=== PATIENT | male | born 1990 | race Caucasian/White ===

== ENCOUNTER 2023-07-02 16:31 | Inpatient (IN) | payer OTHER, SELFPAY ==
[2023-07-02 18:45] VITALS: BP 115/69; PULSE 64; TEMP 36.3
[2023-07-02 20:22] VITALS: BP 127/71; PULSE 67; TEMP 36.2; O2SAT 97
[2023-07-02] MEDS: Buprenorphine/Naloxone 8/2 mg FILM 1 FILM SUBLINGUAL (20:29)
[2023-07-02] MEDS: cloNIDine HCL 0.1 MG TABLET PO (20:30)
[2023-07-02] MEDS: hydrOXYzine HCL 50 MG TABLET PO (20:30)
--- NOTE | 2023-07-02 23:38 | PC.ADMIT ---
Lonny was admitted to at 1645 from [facility] on a CV for treatment of SI/Unspecified depressive disorder. Pt presented to [facility] secondary to being discharged from [facility] yesterday. Pt reported he was still having SI, thought about hanging himself, but decided to get treatment. Pt is looking for different treatment, including group therapy. Pt is goal oriented, stating he is looking to expand his coping skills and get, ?mentally stable.? Pt is alert and oriented X 4. Pt is calm and cooperative. Pt mood is anxious but goal oriented. Pt denies AH/VH at this time and does not appear to be responding to internal stimuli. Pt thought process is linear and goal oriented. Pt denies SI/HI at this time. Pt reports no issues sleeping or eating with no recent weight loss. Pt denies substance use, using Suboxone. Pt denies complaints. Provider is aware of admission, orders are placed. Begin treatment plan and monitor for safety. Pt is placed on 15 minute safety checks. Pt is safe on the unit.
[2023-07-03 08:24] LABS: Estimated Average Glucose 103 mg/dL; Hemoglobin A1c % 5.2 % (<6.0)
[2023-07-03] MEDS: Buprenorphine/Naloxone 8/2 mg FILM 1 FILM SUBLINGUAL ×2 (08:31→16:39)
[2023-07-03] MEDS: Venlafaxine HCL 25 MG TABLET 75 MG PO (08:31)
[2023-07-03 08:37] LABS: Alanine Aminotransferase 92 U/L (0-40); Albumin Level 3.9 g/dL (3.5-5.0); Alkaline Phosphatase 89 U/L (39-117); Anion Gap 12 (12-20); Aspartate Amino Transferase 48 U/L (5-37); Bilirubin Total 0.4 mg/dL (0.0-1.0); Blood Urea Nitrogen 14 mg/dL (9-16); Calcium 9.7 mg/dL (8.4-10.2); Carbon Dioxide 28 mmol/L (22-29); Chloride 104 mmol/L (96-108); Cholesterol 140 mg/dL (<200); Estimated Glomerular Filt Rate > 60; Glucose Fasting 88 mg/dL (60-99); HDL Cholesterol 31 mg/dL (>40); LDL Cholesterol Calculated 94 mg/dL (<100); Potassium 4.3 mmol/L (3.3-5.1); Sodium 140 mmol/L (135-145); Total Protein 7.1 g/dL (6.5-8.0); Triglycerides 79 mg/dL (<150)
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
[2023-07-03 08:53] LABS: Free T4 (Free Thyroxine) 0.81 ng/dL (0.71-1.85); Thyroid Stimulating Hormone 3.28 uIU/mL (0.32-4.0)
[2023-07-03] MEDS: Nicotine 21 MG PATCH.TD24 TRANSDERMA (08:59)
[2023-07-03 09:03] LABS: Folate 10.4 ng/mL (> or = 4.0); Vitamin B12 721 pg/mL (200-900)
[2023-07-03 09:13] VITALS: BP 101/52; PULSE 50; RESP 14; TEMP 36.9; O2SAT 96
--- NOTE | 2023-07-03 11:40 | HO.PM.IMCN ---
History of Present Illness Data of Consult Service Date: 07/03/23 Primary Care Provider: None Physician HPI Reason for consult: Admission H&P Pt is a 32-year-old male with a PMH significant for?ADHD and IVDU on suboxone who is admitted to [facility] psychiatry unit for continued depression with SI with plan to overdose. Pt recently presented to [facility] and was placed at [facility]. After discharge from there he re-presented to [facility] ED since he still felt suicidal. Medical consult for admission H&P. Pt denies any acute medical concerns. Reports feeling fine physically. Denies chest pain/pressure, palpitations. No SOB. Denies headache, acute vision changes. No lightheadedness or dizziness. Denies fever, chills, N/V, diarrhea. Reports he used to be a daily user of heroin but now only uses occasionally every few weeks. Last used over three weeks ago. Labs reviewed, significant for mildly elevated AST of 48 and a ALT 92. Review of Systems Review of Systems: Pt has no acute medical complaints at this time [facility] Medical History (Updated 07/04/23 @ 00:22 by AMELIA Mtz) Opioid use disorder PTSD (post-traumatic stress disorder) MDD (major depressive disorder), recurrent severe, without psychosis Social History Household Members Other:: Friends Housing: Apartment Do you presently have visiting nurse or other home services: No Patient Tobacco Use Status: Current everyday Tobacco user Smoked in Last 30 Days: Yes e-Cigarette/Vaping Use: Currently Using Patient Interested in Nicotine Replacement: Yes Patient Given Instructions on How to Stop Smoking: No Second Hand Smoke Exposure: No Use of substances other than those prescribed or required for medical reasons: Yes Substance Use Type: Crack/Cocaine and Heroin Substance Use Frequency: Occasionally Last Used Substance: Weeks (ago) Last Used Substance Other:: Before admission to [facility] Currently Displaying Signs/Symptoms of Drug Intoxication Withdrawal: No Any prior treatment program specific to substance use: Yes Have you been hit, kicked, punched, or otherwise hurt by someone within the past year? If so, by whom?: No Do you feel safe in your current relationship?: No Current Relationship Is there a partner from a previous relationship who is making you feel unsafe now?: No Are you made to feel afraid or neglected: No Advance Directives: No Advance Directives Information Provided: No Do you have thoughts of harming others: None Do you have a plan to hurt others: No Plan Recently lost weight without trying: No Nutrition Risks: No Nutritional Risk Poor oral hygiene: No Meds Allergies Allergy/AdvReac Type Severity Reaction Status Date / Time No Known Allergies Allergy Verified 07/02/23 16:55 Active Medications: Current Medications Acetaminophen (Acetaminophen 325 Mg Tablet) 650 mg PO Q6H PRN PRN Reason: Headache/Pain Mild Scale (1-3) Al Hydroxide/Mg Hydroxide (Magnesium Hydrox/Alum Hydrox 30 Ml Oral.Susp) 30 ml PO Q6H PRN PRN Reason: Heartburn/Nausea Buprenorphine/Naloxone (Buprenorphine/Naloxone 8/2 Mg Film) 1 film SUBLINGUAL BID [facility] Last Admin: 07/03/23 08:31 Dose: 1 film Clonidine HCl (Clonidine Hcl 0.1 Mg Tablet) 0.1 mg PO BID PRN; Protocol PRN Reason: anxiety Last Admin: 07/02/23 20:30 Dose: 0.1 mg Hydroxyzine HCl (Hydroxyzine Hcl 50 Mg Tablet) 50 mg PO TID PRN PRN Reason: Anxiety Last Admin: 07/02/23 20:30 Dose: 50 mg Magnesium Hydroxide (Milk Of Magnesia 30 Ml Oral.Susp) 30 ml PO DAILY PRN PRN Reason: Constipation Nicotine (Nicotine 21 Mg Patch.Td24) 21 mg TRANSDERMA DAILY [facility] Last Admin: 07/03/23 08:59 Dose: 21 mg Nicotine Polacrilex (Nicotine Polacrilex 2 Mg Gum) 4 mg BUCCAL Q2H PRN PRN Reason: Nicotine Cravings Trazodone HCl (Trazodone Hcl 50 Mg Tablet) 50 mg PO BEDTIME MRX1 PRN PRN Reason: Insomnia Venlafaxine HCl (Venlafaxine Hcl 25 Mg Tablet) 75 mg PO DAILY [facility] Last Admin: 07/03/23 08:31 Dose: 75 mg Home Medications Medication Instructions Recorded Confirmed Last Taken Type buprenorphine 8 mg-naloxone 2 mg 20 mg sublingual BID 07/02/23 07/02/23 07/02/23 09:00 History sublingual film (Suboxone) clonidine HCl 0.1 mg tablet 0.1 mg PO BID PRN anxiety 07/02/23 07/02/23 07/01/23 21:00 History hydroxyzine pamoate 50 mg capsule 50 mg PO TID PRN Anxiety 07/02/23 07/02/23 07/01/23 12:00 History nicotine (polacrilex) 4 mg buccal 4 mg buccal Q2-4H PRN nicotine 07/02/23 07/02/23 Unknown History lozenge craving trazodone 50 mg tablet 50 mg PO BEDTIME PRN insomnia 07/02/23 07/02/23 Unknown History venlafaxine 75 mg tablet,extended 75 mg PO DAILY 07/02/23 07/02/23 07/01/23 09:00 History release 24 hr Physical Exam Vital Signs and Narrative: Vital Signs: Last Vital Signs Temp 98.5 F 07/03/23 09:13 Pulse 50 07/03/23 09:13 Resp 14 07/03/23 09:13 BP 101/52 L 07/03/23 09:13 Pulse Ox 96 07/03/23 09:13 O2 Del Method Room Air 07/03/23 09:13 Constitutional: Alert, in no acute distress. Mental Status: Oriented to person, place and time. Eyes: Pupils are equal, round, and reactive to light. Ear, Nose, and Throat: Oropharynx clear, mucous membranes moist. Ears and nose without deformities. Trachea midline. Respiratory: Clear to auscultation bilaterally. No wheezing, rales, or rhonchi. Cardiovascular: S1, S2 regular. No murmurs, rubs, or gallops. Gastrointestinal: Abdomen soft, non-tender, non-distended. Normal bowel sounds. Neurologic: Cranial nerves II-XII are grossly intact bilaterally. No focal neurological deficits. Moves all extremities spontaneously. Skin: No rashes or lesions noted. Musculoskeletal: No cyanosis or clubbing. Extremities: No edema. Psychiatric: Normal mood and affect. Results Labs 07/03/23 08:02 Labs: Laboratory Results - last 24 hr 07/03/23 08:02 Anion Gap 12 Estim Creat Clear Calc TNP Estimated GFR > 60 Fasting Glucose 88 Estimat Average Glucose 103 Hemoglobin A1c % 5.2 Calcium 9.7 Magnesium 2.0 Total Bilirubin 0.4 AST 48 H ALT 92 H Alkaline Phosphatase 89 Total Protein 7.1 Albumin 3.9 Triglycerides 79 Cholesterol 140 LDL Cholesterol, Calc 94 HDL Cholesterol 31 L Vitamin B12 721 Folate 10.4 TSH 3.28 Free T4 0.81 Assessment and Plan (1) Medical clearance for psychiatric admission: Status: Acute Plan Pt is a 32-year-old male with a PMH significant for?ADHD and IVDU on suboxone who is admitted to [facility] psychiatry unit for continued depression with SI with plan to overdose. Pt recently presented to [facility] and was placed at [facility]. After discharge from there he re-presented to [facility] ED since he still felt suicidal. Medical consult for admission H&P. Mood disorder Plan as per psychiatry Hx of IVDU Last used 3+ weeks ago Continue Suboxone Plan as per psychiatry Hx of ADHD Does not appear to be on any current medications Pt has no other acute or chronic medical concerns or conditions. Thank you for allowing us to participate in the care of this patient. Signing off at this time. Please let us know if there are any acute complaints or questions. Time Spent With Patient Time: Total time managing care of this patient today ____ minutes.
[2023-07-03] MEDS: buPROPion HCl XL 300 MG TAB.ER.24H PO (13:56)
[2023-07-03] MEDS: cloNIDine HCL 0.1 MG TABLET PO ×2 (16:42→21:11)
[2023-07-03 21:01] VITALS: BP 124/65; PULSE 68; RESP 16; TEMP 36.1; O2SAT 95
[2023-07-03] MEDS: hydrOXYzine HCL 25 MG TABLET PO (21:09)
[2023-07-03] MEDS: hydrOXYzine HCL 50 MG TABLET PO (21:11)
[2023-07-04 08:00] VITALS: BP 105/59; PULSE 58; RESP 18; TEMP 36.2; O2SAT 96
[2023-07-04] MEDS: Nicotine 21 MG PATCH.TD24 TRANSDERMA (09:01)
[2023-07-04] MEDS: Buprenorphine/Naloxone 8/2 mg FILM 1 FILM SUBLINGUAL ×2 (09:01→16:00)
[2023-07-04] MEDS: buPROPion HCl XL 300 MG TAB.ER.24H PO (09:02)
--- NOTE | 2023-07-04 09:42 | P.PNPSI_ITS ---
Subjective Subjective Date of Service: 07/04/23 Reason For Visit: Unspecified depressive disorder Interim History: met with patient; discussed with team P bassam?reports?continues?to?be?depressed;?slept?okay.??Intermittent?SI?remains.? ?Discussed?history?and?patient S hares?how?he?was?told?repeatedly?that?something?is?wrong?with?him?which?he?event ually?came?to?believe?was?true. D iscussed?medication?regimen?and?patient?agrees?to?add?Prozac?to?existing?Wellbut rin?300?which?he?has?been?on?for?over?a?week?now. P bassam?reviewed?risksside?effects?of?medication?regimen?with?typewriter tester?and?decided? that?potential?benefit?outweighs?risks Mental Status Exam Mental Status Exam Narrative: Pt is alert and oriented; behavior is cooperative, calm; patient is not in distress; patient has slouch 2 over in his chair; dressed in casual attire with unkempt hair but adequate hygiene; mood is described as depressed and affect congruent, downcast; eye contact avoidant; Speech is normal rate, volume and prosody and not pressured; psychomotor retardation present; thought process is organized and goal directed; Thought content is on tx, trying to push off thoughts of killing himself; otherwise pertinent to relevant topics and without any delusional content, paranoid ideations or grandiosity; positive for SI; denies HI. There is no evidence of perceptual disturbance and denies AVH. Patients insight and judgment impaired Diagnostics Vital Signs (24Hr): Vital Signs - 24 hr 07/03/23 21:01 07/04/23 08:00 Temperature 97.0 F 97.2 F Pulse Rate 68 58 Respiratory Rate 16 18 Blood Pressure 124/65 105/59 L Pulse Oximetry 95 96 Oxygen Delivery Method Room Air Room Air Labs 07/03/23 08:02 Labs: Laboratory Results - last 48 hr 07/03/23 08:02 Sodium 140 Potassium 4.3 Chloride 104 Carbon Dioxide 28 Anion Gap 12 BUN 14 Creatinine 0.86 Estim Creat Clear Calc TNP Estimated GFR > 60 Fasting Glucose 88 Estimat Average Glucose 103 Hemoglobin A1c % 5.2 Calcium 9.7 Magnesium 2.0 Total Bilirubin 0.4 AST 48 H ALT 92 H Alkaline Phosphatase 89 Total Protein 7.1 Albumin 3.9 Triglycerides 79 Cholesterol 140 LDL Cholesterol, Calc 94 HDL Cholesterol 31 L Vitamin B12 721 Folate 10.4 TSH 3.28 Free T4 0.81 Medications Medications Current Medications Acetaminophen (Acetaminophen 325 Mg Tablet) 650 mg PO Q6H PRN PRN Reason: Headache/Pain Mild Scale (1-3) Al Hydroxide/Mg Hydroxide (Magnesium Hydrox/Alum Hydrox 30 Ml Oral.Susp) 30 ml PO Q6H PRN PRN Reason: Heartburn/Nausea Buprenorphine/Naloxone (Buprenorphine/Naloxone 8/2 Mg Film) 1 film SUBLINGUAL BID@0900,1600 [facility] Last Admin: 07/04/23 09:01 Dose: 1 film Bupropion HCl (Bupropion Hcl Xl 300 Mg Tab.Er.24h) 300 mg PO DAILY [facility] Last Admin: 07/04/23 09:02 Dose: 300 mg Clonidine HCl (Clonidine Hcl 0.1 Mg Tablet) 0.1 mg PO Q4H PRN; Protocol PRN Reason: anxiety Last Admin: 07/03/23 21:11 Dose: 0.1 mg Hydroxyzine HCl (Hydroxyzine Hcl 50 Mg Tablet) 50 mg PO TID PRN PRN Reason: Anxiety Last Admin: 07/03/23 21:11 Dose: 50 mg Magnesium Hydroxide (Milk Of Magnesia 30 Ml Oral.Susp) 30 ml PO DAILY PRN PRN Reason: Constipation Nicotine (Nicotine 21 Mg Patch.Td24) 21 mg TRANSDERMA DAILY [facility] Last Admin: 07/04/23 09:01 Dose: 21 mg Nicotine Polacrilex (Nicotine Polacrilex 2 Mg Gum) 4 mg BUCCAL Q2H PRN PRN Reason: Nicotine Cravings Trazodone HCl (Trazodone Hcl 50 Mg Tablet) 50 mg PO BEDTIME MRX1 PRN PRN Reason: Insomnia Allergies Allergies Allergy/AdvReac Type Severity Reaction Status Date / Time No Known Allergies Allergy Verified 07/02/23 16:55 Assessment & Plan Assessment & Plan (1) Medical clearance for psychiatric admission: Status: Acute Code(s): Z00.8 - Encounter for other general examination Plan Pt is a 32-year-old male with a PMH significant for?ADHD and IVDU on suboxone who is admitted to psychiatry unit for continued depression with SI with plan to overdose. Pt recently presented to [facility] and was placed at [facility]. After discharge from there he re-presented to [facility] ED since he still felt suicidal. Medical consult for admission H&P. Hospital?course Adding?Prozac?10?mg? C ontinue?Wellbutrin?XL?300?mg;?decided?to?add?Prozac?since?patient?has?had?no?vita efit?with?increased? Wellbutrin?after?a?week.??Will?continue?with?Wellbutrin?since?patient?had?partia l?benefit A t?150?mg;?if?patient?improves?on?Prozac?will?likely?lower?Wellbutrin?back?to?150 Mood disorder Plan as per psychiatry Hx of IVDU Last used 3+ weeks ago Continue Suboxone Plan as per psychiatry Hx of ADHD Does not appear to be on any current medications Pt has no other acute or chronic medical concerns or conditions. Thank you for allowing us to participate in the care of this patient. Signing off at this time. Please let us know if there are any acute complaints or questions. Patient educated on: diagnosis, medication risk/benefits, substance abuse and therapeutic strategies Informed Consent: understands Reason for continued inpatient stay Substantial Risk for: rapid decompensation Time Spent With Patient Time: Total time managing care of this patient today ____ minutes.
[2023-07-04] MEDS: FLUoxetine HCl 10 MG CAPSULE PO (14:05)
[2023-07-04] MEDS: hydrOXYzine HCL 50 MG TABLET PO (16:00)
[2023-07-04] MEDS: cloNIDine HCL 0.1 MG TABLET PO (16:03)
[2023-07-04 16:16] VITALS: BP 117/71; PULSE 60; RESP 16; TEMP 36.7; O2SAT 97
[2023-07-05 08:47] VITALS: BP 110/55; PULSE 60; RESP 16; TEMP 36.1; O2SAT 96
[2023-07-05] MEDS: Nicotine 21 MG PATCH.TD24 TRANSDERMA (08:55)
[2023-07-05] MEDS: FLUoxetine HCl 10 MG CAPSULE PO (08:56)
[2023-07-05] MEDS: buPROPion HCl XL 300 MG TAB.ER.24H PO (08:56)
[2023-07-05] MEDS: Buprenorphine/Naloxone 8/2 mg FILM 1 FILM SUBLINGUAL ×2 (08:57→16:12)
--- NOTE | 2023-07-05 09:50 | P.PNPSI_ITS ---
Subjective Subjective Date of Service: 07/05/23 Reason For Visit: Unspecified depressive disorder Interim History: With patient; discussed with team; reviewed notes Patient reports that his mood is actually a little better. He says that he feels he has more energy and finds himself moving around in the milieu more; also a little more confident. Still has intermittent SI but less intense. Sleeping fine. Patient is going to groups. No side effects with Prozac started Mental Status Exam Mental Status Exam Narrative: Pt is alert and oriented; behavior is cooperative, calm; patient is not in distress; patient dressed in casual attire with unkempt hair but adequate hygiene; mood is described as so-so... A little better and affect congruent, a little brighter; eye contact appropriate; Speech is normal rate, volume and prosody and not pressured; still some psychomotor retardation present; thought process is organized and goal directed; Thought content is on tx; otherwise pertinent to relevant topics and without any delusional content, paranoid ideations or grandiosity; intermittent SI but less intense and passive; denies HI. There is no evidence of perceptual disturbance and denies AVH. Patients insight and judgment impaired but improving Diagnostics Vital Signs (24Hr): Vital Signs - 24 hr 07/04/23 16:16 07/05/23 08:47 Temperature 98.1 F 97.0 F Pulse Rate 60 60 Respiratory Rate 16 16 Blood Pressure 117/71 110/55 L Pulse Oximetry 97 96 Oxygen Delivery Method Room Air Room Air Labs 07/03/23 08:02 Medications Medications Current Medications Acetaminophen (Acetaminophen 325 Mg Tablet) 650 mg PO Q6H PRN PRN Reason: Headache/Pain Mild Scale (1-3) Al Hydroxide/Mg Hydroxide (Magnesium Hydrox/Alum Hydrox 30 Ml Oral.Susp) 30 ml PO Q6H PRN PRN Reason: Heartburn/Nausea Buprenorphine/Naloxone (Buprenorphine/Naloxone 8/2 Mg Film) 1 film SUBLINGUAL BID@0900,1600 [facility] Last Admin: 07/05/23 08:57 Dose: 1 film Bupropion HCl (Bupropion Hcl Xl 300 Mg Tab.Er.24h) 300 mg PO DAILY [facility] Last Admin: 07/05/23 08:56 Dose: 300 mg Clonidine HCl (Clonidine Hcl 0.1 Mg Tablet) 0.1 mg PO Q4H PRN; Protocol PRN Reason: anxiety Last Admin: 07/04/23 16:03 Dose: 0.1 mg Fluoxetine HCl (Fluoxetine Hcl 10 Mg Capsule) 10 mg PO DAILY [facility] Last Admin: 07/05/23 08:56 Dose: 10 mg Hydroxyzine HCl (Hydroxyzine Hcl 50 Mg Tablet) 50 mg PO TID PRN PRN Reason: Anxiety Last Admin: 07/04/23 16:00 Dose: 50 mg Magnesium Hydroxide (Milk Of Magnesia 30 Ml Oral.Susp) 30 ml PO DAILY PRN PRN Reason: Constipation Nicotine (Nicotine 21 Mg Patch.Td24) 21 mg TRANSDERMA DAILY [facility] Last Admin: 07/05/23 08:55 Dose: 21 mg Nicotine Polacrilex (Nicotine Polacrilex 2 Mg Gum) 4 mg BUCCAL Q2H PRN PRN Reason: Nicotine Cravings Trazodone HCl (Trazodone Hcl 50 Mg Tablet) 50 mg PO BEDTIME MRX1 PRN PRN Reason: Insomnia Allergies Allergies Allergy/AdvReac Type Severity Reaction Status Date / Time No Known Allergies Allergy Verified 07/02/23 16:55 Assessment & Plan Assessment & Plan (1) Medical clearance for psychiatric admission: Status: Acute Code(s): Z00.8 - Encounter for other general examination Plan Patient is a 32-year-old male with history of depression, PTSD, opioid abuse, recently discharged from [facility], who self presents for continued depression and suicidal ideation. Patient reports that he is struggle with depression and PTSD symptoms from childhood trauma for years. About 6 months ago he was admitted to [facility] psychiatric unit and was started on low dose of Wellbutrin; was feeling better for while however intermittent relapse and ongoing negative self dialogue triggered by traumatic memories was enough to return depressive symptoms. About 3 weeks ago he self presented and was admitted again to [facility] at which time he was started on Suboxone. He remained depressed and started having increased suicidal thinking, contemplating about hanging himself or overdosing on drugs; patient did not want to and had hoped to get better and so presented to [facility] and his Wellbutrin was increased to 300 mg. However he feels he left prematurely and remained suicidal so again self presented to the hospital wanting treatment. Denies any history of manic type episodes or behaviors; denies any AVH; denies any alcohol abuse. Says he has reduced his opioid relapses to about once every 3 weeks which is an improvement but he agrees he needs to be sober to remains stable. Endorses childhood trauma with PTSD symptoms of flashbacks, nightmares. -patient wants help; would like to continue on Wellbutrin XL 300 mg; since he recently started this is not sure if he is ready to try and augment it however is open to considering Augmentin medications Hospital course: 07/04 Adding?Prozac?10?mg? C ontinue?Wellbutrin?XL?300?mg;?decided?to?add?Prozac?since?patient?has?had?no?vita efit?with?increased? Wellbutrin?after?a?week.??Will?continue?with?Wellbutrin?since?patient?had?partia l?benefit A t?150?mg;?if?patient?improves?on?Prozac?will?likely?lower?Wellbutrin?back?to?150 07/05 patient feels that he is doing a little better and although depression remains a little more hopeful; he wonders if it is because he started Prozac. Patient going to groups and invested in treatment Plan: CV Q 15 minute checks Continue Prozac 10 mg Continue Wellbutrin XL 300 mg daily Continue Suboxone 8/2 mg b.i.d. Consider prazosin/clonidine scheduled at bedtime for nightmares Considering augmentation with BuSpar, Prozac or Lamictal DC Effexor; patient says does not like the feeling of it Patient agrees that he needs therapy and would like to find therapeutic provider Reviewed labs from sending facility QTC WNL CBC, lytes, BUN/creatinine WNL Mildly elevated LFTs UDS positive for cocaine; patient denies using cocaine Patient educated on: diagnosis, medication risk/benefits and therapeutic strategies Informed Consent: understands Reason for continued inpatient stay Substantial Risk for: rapid decompensation Time Spent With Patient Time: Total time managing care of this patient today ____ minutes.
[2023-07-05 18:00] VITALS: BP 117/85; PULSE 54; TEMP 36.1; O2SAT 97
[2023-07-05] MEDS: cloNIDine HCL 0.1 MG TABLET PO (20:46)
[2023-07-06 08:20] VITALS: BP 125/73; PULSE 67; RESP 18; TEMP 36.1; O2SAT 97
[2023-07-06] MEDS: Nicotine 21 MG PATCH.TD24 TRANSDERMA (09:02)
[2023-07-06] MEDS: Buprenorphine/Naloxone 8/2 mg FILM 1 FILM SUBLINGUAL ×2 (09:03→16:00)
[2023-07-06] MEDS: FLUoxetine HCl 10 MG CAPSULE PO ×2 (09:03→12:54)
[2023-07-06] MEDS: buPROPion HCl XL 300 MG TAB.ER.24H PO (09:03)
--- NOTE | 2023-07-06 09:56 | P.PNPSI_ITS ---
Subjective Subjective Date of Service: 07/06/23 Reason For Visit: Unspecified depressive disorder Interim History: Met with patient; discussed with team S till?depressed.??SI?but?passive.??Asks?for?Prozac?to?be?increased.??Patient?atte nded?groups?and?feels?it?has Been?quite?helpful.??Says?he?is?realizing?that it?is?not?the?end?of?the?world ?when?he?makes?a?mistake. P atient?also?realizing?how?much?thinking?a?certain?way?affects?his?mood.??Wants?h elp?changing. Mental Status Exam Mental Status Exam Narrative: Pt is alert and oriented; behavior is cooperative, calm; patient is not in distress; patient dressed in casual attire with unkempt hair but adequate hygiene; mood is described as so-so... A little better and affect congruent, a little brighter; eye contact appropriate; Speech is normal rate, volume and prosody and not pressured; still some psychomotor retardation present; thought process is organized and goal directed; Thought content is on tx; otherwise pertinent to relevant topics and without any delusional content, paranoid ideations or grandiosity; intermittent SI but less intense and passive; denies HI. There is no evidence of perceptual disturbance and denies AVH. Patients insight and judgment impaired but improving Diagnostics Vital Signs (24Hr): Vital Signs - 24 hr 07/05/23 18:00 07/06/23 08:20 Temperature 96.9 F 97.0 F Pulse Rate 54 67 Respiratory Rate 18 Blood Pressure 117/85 125/73 Pulse Oximetry 97 97 Oxygen Delivery Method Room Air Room Air Labs 07/03/23 08:02 Medications Medications Current Medications Acetaminophen (Acetaminophen 325 Mg Tablet) 650 mg PO Q6H PRN PRN Reason: Headache/Pain Mild Scale (1-3) Al Hydroxide/Mg Hydroxide (Magnesium Hydrox/Alum Hydrox 30 Ml Oral.Susp) 30 ml PO Q6H PRN PRN Reason: Heartburn/Nausea Buprenorphine/Naloxone (Buprenorphine/Naloxone 8/2 Mg Film) 1 film SUBLINGUAL BID@0900,1600 [facility] Last Admin: 07/06/23 09:03 Dose: 1 film Bupropion HCl (Bupropion Hcl Xl 300 Mg Tab.Er.24h) 300 mg PO DAILY [facility] Last Admin: 07/06/23 09:03 Dose: 300 mg Clonidine HCl (Clonidine Hcl 0.1 Mg Tablet) 0.1 mg PO Q4H PRN; Protocol PRN Reason: anxiety Last Admin: 07/05/23 20:46 Dose: 0.1 mg Fluoxetine HCl (Fluoxetine Hcl 10 Mg Capsule) 10 mg PO DAILY [facility] Last Admin: 07/06/23 09:03 Dose: 10 mg Hydroxyzine HCl (Hydroxyzine Hcl 50 Mg Tablet) 50 mg PO TID PRN PRN Reason: Anxiety Last Admin: 07/04/23 16:00 Dose: 50 mg Magnesium Hydroxide (Milk Of Magnesia 30 Ml Oral.Susp) 30 ml PO DAILY PRN PRN Reason: Constipation Nicotine (Nicotine 21 Mg Patch.Td24) 21 mg TRANSDERMA DAILY [facility] Last Admin: 07/06/23 09:02 Dose: 21 mg Nicotine Polacrilex (Nicotine Polacrilex 2 Mg Gum) 4 mg BUCCAL Q2H PRN PRN Reason: Nicotine Cravings Trazodone HCl (Trazodone Hcl 50 Mg Tablet) 50 mg PO BEDTIME MRX1 PRN PRN Reason: Insomnia Allergies Allergies Allergy/AdvReac Type Severity Reaction Status Date / Time No Known Allergies Allergy Verified 07/02/23 16:55 Assessment & Plan Assessment & Plan (1) Medical clearance for psychiatric admission: Status: Acute Code(s): Z00.8 - Encounter for other general examination Plan Patient is a 32-year-old male with history of depression, PTSD, opioid abuse, recently discharged from [facility], who self presents for continued depression and suicidal ideation. Patient reports that he is struggle with depression and PTSD symptoms from childhood trauma for years. About 6 months ago he was admitted to [facility] psychiatric unit and was started on low dose of Wellbutrin; was feeling better for while however intermittent relapse and ongoing negative self dialogue triggered by traumatic memories was enough to return depressive symptoms. About 3 weeks ago he self presented and was admitted again to [facility] hospital at which time he was started on Suboxone. He remained depressed and started having increased suicidal thinking, contemplating about hanging himself or overdosing on drugs; patient did not want to and had hoped to get better and so presented to [facility] and his Wellbutrin was increased to 300 mg. However he feels he left prematurely and remained suicidal so again self presented to the hospital wanting treatment. Denies any history of manic type episodes or behaviors; denies any AVH; denies any alcohol abuse. Says he has reduced his opioid relapses to about once every 3 weeks which is an improvement but he agrees he needs to be sober to remains stable. Endorses childhood trauma with PTSD symptoms of flashbacks, nightmares. -patient wants help; would like to continue on Wellbutrin XL 300 mg; since he recently started this is not sure if he is ready to try and augment it however is open to considering Augmentin medications Hospital course: 07/04 Adding?Prozac?10?mg? C ontinue?Wellbutrin?XL?300?mg;?decided?to?add?Prozac?since?patient?has?had?no?vita efit?with?increased? Wellbutrin?after?a?week.??Will?continue?with?Wellbutrin?since?patient?had?partia l?benefit A t?150?mg;?if?patient?improves?on?Prozac?will?likely?lower?Wellbutrin?back?to?150 07/05 patient feels that he is doing a little better and although depression remains a little more hopeful; he wonders if it is because he started Prozac. Patient going to groups and invested in treatment 07/06?patient?feels?depressed?and?asked?for?Prozac?to?be?increased Plan: CV Q 15 minute checks Increased?to Prozac 20 mg Continue Wellbutrin XL 300 mg daily Continue Suboxone 8/2 mg b.i.d. Consider prazosin/clonidine scheduled at bedtime for nightmares Considering augmentation with BuSpar, Prozac or Lamictal DC Effexor; patient says does not like the feeling of it Patient agrees that he needs therapy and would like to find therapeutic provider Reviewed labs from sending facility QTC WNL CBC, lytes, BUN/creatinine WNL Mildly elevated LFTs UDS positive for cocaine; patient denies using cocaine Patient educated on: diagnosis, medication risk/benefits and therapeutic strategies Informed Consent: understands Reason for continued inpatient stay Substantial Risk for: rapid decompensation Time Spent With Patient Time: Total time managing care of this patient today ____ minutes.
[2023-07-06 18:00] VITALS: BP 140/81; PULSE 67; RESP 16; TEMP 36.2; O2SAT 98
[2023-07-07] MEDS: FLUoxetine HCl 20 MG CAPSULE PO (08:38)
[2023-07-07] MEDS: Nicotine 21 MG PATCH.TD24 TRANSDERMA (08:38)
[2023-07-07] MEDS: Buprenorphine/Naloxone 8/2 mg FILM 1 FILM SUBLINGUAL ×2 (08:38→17:02)
[2023-07-07] MEDS: buPROPion HCl XL 300 MG TAB.ER.24H PO (08:38)
[2023-07-07 09:16] VITALS: BP 107/62; PULSE 62; RESP 17; TEMP 36.6; O2SAT 96
--- NOTE | 2023-07-07 09:51 | HO.PSYCHPN ---
Subjective Subjective Date of Service: 07/07/23 Reason For Visit: Unspecified depressive disorder Interim History: met with patient; discussed with team Patient reports that he is feeling better. Says that today when he woke up he did have any suicidal thoughts at all, the 1st time and a very long time. Patient said that it is a relaxing feeling. No medication side effects. Patient asked to go to [facility] post discharge Mental Status Exam Mental Status Exam Narrative: Pt is alert and oriented; behavior is cooperative, calm; patient is not in distress; patient dressed in casual attire with unkempt hair but adequate hygiene; mood is described as good and affect congruent, a little brighter, more calm; eye contact appropriate; Speech is normal rate, volume and prosody and not pressured; still some psychomotor retardation present; thought process is organized and goal directed; Thought content is on tx; otherwise pertinent to relevant topics and without any delusional content, paranoid ideations or grandiosity; No SI/HI; There is no evidence of perceptual disturbance and denies AVH. Patients insight and judgment fair Diagnostics Vital Signs (24Hr): Vital Signs - 24 hr 07/06/23 18:00 07/07/23 09:16 Temperature 97.1 F 97.8 F Pulse Rate 67 62 Respiratory Rate 16 17 Blood Pressure 140/81 H 107/62 Pulse Oximetry 98 96 Oxygen Delivery Method Room Air Room Air Labs 07/03/23 08:02 Medications Medications Current Medications Acetaminophen (Acetaminophen 325 Mg Tablet) 650 mg PO Q6H PRN PRN Reason: Headache/Pain Mild Scale (1-3) Al Hydroxide/Mg Hydroxide (Magnesium Hydrox/Alum Hydrox 30 Ml Oral.Susp) 30 ml PO Q6H PRN PRN Reason: Heartburn/Nausea Buprenorphine/Naloxone (Buprenorphine/Naloxone 8/2 Mg Film) 1 film SUBLINGUAL BID@0900,1600 [facility] Last Admin: 07/07/23 08:38 Dose: 1 film Bupropion HCl (Bupropion Hcl Xl 300 Mg Tab.Er.24h) 300 mg PO DAILY [facility] Last Admin: 07/07/23 08:38 Dose: 300 mg Clonidine HCl (Clonidine Hcl 0.1 Mg Tablet) 0.1 mg PO Q4H PRN; Protocol PRN Reason: anxiety Last Admin: 07/05/23 20:46 Dose: 0.1 mg Fluoxetine HCl (Fluoxetine Hcl 20 Mg Capsule) 20 mg PO DAILY [facility] Last Admin: 07/07/23 08:38 Dose: 20 mg Hydroxyzine HCl (Hydroxyzine Hcl 50 Mg Tablet) 50 mg PO TID PRN PRN Reason: Anxiety Last Admin: 07/04/23 16:00 Dose: 50 mg Magnesium Hydroxide (Milk Of Magnesia 30 Ml Oral.Susp) 30 ml PO DAILY PRN PRN Reason: Constipation Nicotine (Nicotine 21 Mg Patch.Td24) 21 mg TRANSDERMA DAILY [facility] Last Admin: 07/07/23 08:38 Dose: 21 mg Nicotine Polacrilex (Nicotine Polacrilex 2 Mg Gum) 4 mg BUCCAL Q2H PRN PRN Reason: Nicotine Cravings Trazodone HCl (Trazodone Hcl 50 Mg Tablet) 50 mg PO BEDTIME MRX1 PRN PRN Reason: Insomnia Allergies Allergies Allergy/AdvReac Type Severity Reaction Status Date / Time No Known Allergies Allergy Verified 07/02/23 16:55 Assessment & Plan Assessment & Plan (1) Medical clearance for psychiatric admission: Status: Acute Code(s): Z00.8 - Encounter for other general examination Plan Patient is a 32-year-old male with history of depression, PTSD, opioid abuse, recently discharged from [facility], who self presents for continued depression and suicidal ideation. Patient reports that he is struggle with depression and PTSD symptoms from childhood trauma for years. About 6 months ago he was admitted to [facility] psychiatric unit and was started on low dose of Wellbutrin; was feeling better for while however intermittent relapse and ongoing negative self dialogue triggered by traumatic memories was enough to return depressive symptoms. About 3 weeks ago he self presented and was admitted again to [facility] at which time he was started on Suboxone. He remained depressed and started having increased suicidal thinking, contemplating about hanging himself or overdosing on drugs; patient did not want to and had hoped to get better and so presented to [facility] and his Wellbutrin was increased to 300 mg. However he feels he left prematurely and remained suicidal so again self presented to the hospital wanting treatment. Denies any history of manic type episodes or behaviors; denies any AVH; denies any alcohol abuse. Says he has reduced his opioid relapses to about once every 3 weeks which is an improvement but he agrees he needs to be sober to remains stable. Endorses childhood trauma with PTSD symptoms of flashbacks, nightmares. -patient wants help; would like to continue on Wellbutrin XL 300 mg; since he recently started this is not sure if he is ready to try and augment it however is open to considering Augmentin medications Hospital course: 07/04 Adding?Prozac?10?mg? Continue?Wellbutrin?XL?300?mg;?decided?to?add?Prozac?since?patient?has?had?no?benefit?with?increased?Wellbutrin?after?a?week.??Will?continue?with?Wellbutrin?since?patient?had?partial?benefit At?150?mg;?if?patient?improves?on?Prozac?will?likely?lower?Wellbutrin?back?to?150 07/05 patient feels that he is doing a little better and although depression remains a little more hopeful; he wonders if it is because he started Prozac. Patient going to groups and invested in treatment 07/06?patient?feels?depressed?and?asked?for?Prozac?to?be?increased no SI today. First-time Plan: CV Q 15 minute checks Continue Prozac 20 mg Continue Wellbutrin XL 300 mg daily Continue Suboxone 8/2 mg b.i.d. Consider prazosin/clonidine scheduled at bedtime for nightmares Considering augmentation with BuSpar, Prozac or Lamictal DC Effexor; patient says does not like the feeling of it Patient agrees that he needs therapy and would like to find therapeutic provider Reviewed labs from sending facility QTC WNL CBC, lytes, BUN/creatinine WNL Mildly elevated LFTs UDS positive for cocaine; patient denies using cocaine Patient educated on: diagnosis, medication risk/benefits and therapeutic strategies Informed Consent: understands Reason for continued inpatient stay Substantial Risk for: rapid decompensation Time Spent With Patient Time: Total time managing care of this patient today ____ minutes.
[2023-07-07 20:00] VITALS: BP 140/85; PULSE 66; TEMP 36.6; O2SAT 99
[2023-07-07] MEDS: cloNIDine HCL 0.1 MG TABLET PO (22:07)
[2023-07-08 08:05] VITALS: BP 103/55; PULSE 54; RESP 18; TEMP 35.9; O2SAT 97
[2023-07-08] MEDS: Nicotine 21 MG PATCH.TD24 TRANSDERMA (09:04)
[2023-07-08] MEDS: FLUoxetine HCl 20 MG CAPSULE PO (09:05)
[2023-07-08] MEDS: buPROPion HCl XL 300 MG TAB.ER.24H PO (09:05)
[2023-07-08] MEDS: Buprenorphine/Naloxone 8/2 mg FILM 1 FILM SUBLINGUAL ×2 (09:05→16:43)
--- NOTE | 2023-07-08 11:39 | P.PNPSI_ITS ---
Subjective Subjective Date of Service: 07/08/23 Reason For Visit: Unspecified depressive disorder Interim History: Met with patient; discussed with team Patient report feeling a little depressed today And had some suicidal ideation. However he remembered what ammonia refrigeration worker shared about using Positive talk and so went to his room and use this coping skill which he said was helpful. Seasonal Recruiter and patient engaged in CBT exercise looking at automatic thoughts and how they affect feelings and behaviors; also the origin of core beliefs. Exercise resonate with patient who would like to work on this idea tonight on his own and discuss it more. Also discussed patient's history of ADHD. He was diagnosed in grade school and was on stimulant medication all through school which he said was a significant help. He was also put on Adderall in his adult life which he said helped eliminate his cravings and during which time he was sober. Patient asked if he could restart this now. Seasonal Recruiter reviewed risks/side effects of this medication including its combination with Wellbutrin and it is concern for abuse; advertising copywriter however agreed with patient that potential benefit outweighs risks Mental Status Exam Mental Status Exam Narrative: Pt is alert and oriented; behavior is cooperative, calm; patient is not in distress; patient dressed in casual attire with unkempt hair but adequate hygiene; mood is described as little depressed and affect congruent; eye contact appropriate; Speech is normal rate, volume and prosody and not pressured; still some psychomotor retardation present; thought process is organized and goal directed; Thought content is on tx; otherwise pertinent to relevant topics and without any delusional content, paranoid ideations or grandiosity; intermittent passive SI; no HI; There is no evidence of perceptual disturbance and denies AVH. Patients insight and judgment fair Diagnostics Vital Signs (24Hr): Vital Signs - 24 hr 07/07/23 20:00 07/08/23 08:05 Temperature 97.8 F 96.7 F L Pulse Rate 66 54 Respiratory Rate 18 Blood Pressure 140/85 H 103/55 L Pulse Oximetry 99 97 Oxygen Delivery Method Room Air Room Air Labs 07/03/23 08:02 Medications Medications Current Medications Acetaminophen (Acetaminophen 325 Mg Tablet) 650 mg PO Q6H PRN PRN Reason: Headache/Pain Mild Scale (1-3) Al Hydroxide/Mg Hydroxide (Magnesium Hydrox/Alum Hydrox 30 Ml Oral.Susp) 30 ml PO Q6H PRN PRN Reason: Heartburn/Nausea Buprenorphine/Naloxone (Buprenorphine/Naloxone 8/2 Mg Film) 1 film SUBLINGUAL BID@0900,1600 [facility] Last Admin: 07/08/23 09:05 Dose: 1 film Bupropion HCl (Bupropion Hcl Xl 300 Mg Tab.Er.24h) 300 mg PO DAILY [facility] Last Admin: 07/08/23 09:05 Dose: 300 mg Clonidine HCl (Clonidine Hcl 0.1 Mg Tablet) 0.1 mg PO Q4H PRN; Protocol PRN Reason: anxiety Last Admin: 07/07/23 22:07 Dose: 0.1 mg Fluoxetine HCl (Fluoxetine Hcl 20 Mg Capsule) 20 mg PO DAILY [facility] Last Admin: 07/08/23 09:05 Dose: 20 mg Hydroxyzine HCl (Hydroxyzine Hcl 50 Mg Tablet) 50 mg PO TID PRN PRN Reason: Anxiety Last Admin: 07/04/23 16:00 Dose: 50 mg Magnesium Hydroxide (Milk Of Magnesia 30 Ml Oral.Susp) 30 ml PO DAILY PRN PRN Reason: Constipation Nicotine (Nicotine 21 Mg Patch.Td24) 21 mg TRANSDERMA DAILY [facility] Last Admin: 07/08/23 09:04 Dose: 21 mg Nicotine Polacrilex (Nicotine Polacrilex 2 Mg Gum) 4 mg BUCCAL Q2H PRN PRN Reason: Nicotine Cravings Trazodone HCl (Trazodone Hcl 50 Mg Tablet) 50 mg PO BEDTIME MRX1 PRN PRN Reason: Insomnia Allergies Allergies Allergy/AdvReac Type Severity Reaction Status Date / Time No Known Allergies Allergy Verified 07/02/23 16:55 Assessment & Plan Assessment & Plan (1) Medical clearance for psychiatric admission: Status: Acute Code(s): Z00.8 - Encounter for other general examination Plan Patient is a 32-year-old male with history of depression, PTSD, opioid abuse, recently discharged from [facility], who self presents for continued depression and suicidal ideation. Patient reports that he is struggle with depression and PTSD symptoms from childhood trauma for years. About 6 months ago he was admitted to [facility] psychiatric unit and was started on low dose of Wellbutrin; was feeling better for while however intermittent relapse and ongoing negative self dialogue triggered by traumatic memories was enough to return depressive symptoms. About 3 weeks ago he self presented and was admitted again to [facility] at which time he was started on Suboxone. He remained depressed and started having increased suicidal thinking, contemplating about hanging himself or overdosing on drugs; patient did not want to and had hoped to get better and so presented to [facility] and his Wellbutrin was increased to 300 mg. However he feels he left prematurely and remained suicidal so again self presented to the hospital wanting treatment. Denies any history of manic type episodes or behaviors; denies any AVH; denies any alcohol abuse. Says he has reduced his opioid relapses to about once every 3 weeks which is an improvement but he agrees he needs to be sober to remains stable. Endorses childhood trauma with PTSD symptoms of flashbacks, nightmares. -patient wants help; would like to continue on Wellbutrin XL 300 mg; since he recently started this is not sure if he is ready to try and augment it however is open to considering Augmentin medications Hospital course: 07/04 Adding?Prozac?10?mg? C ontinue?Wellbutrin?XL?300?mg;?decided?to?add?Prozac?since?patient?has?had?no?vita efit?with?increased? Wellbutrin?after?a?week.??Will?continue?with?Wellbutrin?since?patient?had?partia l?benefit A t?150?mg;?if?patient?improves?on?Prozac?will?likely?lower?Wellbutrin?back?to?150 07/05 patient feels that he is doing a little better and although depression remains a little more hopeful; he wonders if it is because he started Prozac. Patient going to groups and invested in treatment 07/06?patient?feels?depressed?and?asked?for?Prozac?to?be?increased no SI today. First-time 07/08 Patient report feeling a little depressed today And had some suicidal ideation. However he remembered what ammonia refrigeration worker shared about using Positive talk and so went to his room and use this coping skill which he said was helpful. Seasonal Recruiter and patient engaged in CBT exercise looking at automatic thoughts and how they affect feelings and behaviors; also the origin of core beliefs. Exercise resonate with patient who would like to work on this idea tonight on his own and discuss it more. Also discussed patient's history of ADHD. He was diagnosed in grade school and was on stimulant medication all through school which he said was a significant help. He was also put on Adderall in his adult life which he said helped eliminate his cravings and during which time he was sober. Patient asked if he could restart this now. Seasonal Recruiter reviewed risks/side effects of this medication including its combination with Wellbutrin and it is concern for abuse; advertising copywriter however agreed with patient that potential benefit outweighs risks Plan: CV Q 15 minute checks adding Adderall XR 20 mg daily Continue Prozac 20 mg Continue Wellbutrin XL 300 mg daily Continue Suboxone 8/2 mg b.i.d. Consider prazosin/clonidine scheduled at bedtime for nightmares Considering augmentation with BuSpar, Prozac or Lamictal DC Effexor; patient says does not like the feeling of it Patient agrees that he needs therapy and would like to find therapeutic provider Reviewed labs from sending facility QTC WNL CBC, lytes, BUN/creatinine WNL Mildly elevated LFTs UDS positive for cocaine; patient denies using cocaine Patient educated on: diagnosis, medication risk/benefits, substance abuse and therapeutic strategies Informed Consent: understands Reason for continued inpatient stay Substantial Risk for: rapid decompensation Time Spent With Patient Time: Total time managing care of this patient today ____ minutes.
[2023-07-08 18:00] VITALS: BP 137/80; PULSE 66; RESP 17; TEMP 36.3; O2SAT 98
[2023-07-09 08:00] VITALS: BP 120/69; PULSE 70; RESP 16; TEMP 37.1; O2SAT 96
[2023-07-09] MEDS: Nicotine 21 MG PATCH.TD24 TRANSDERMA (08:25)
[2023-07-09] MEDS: buPROPion HCl XL 300 MG TAB.ER.24H PO (08:26)
[2023-07-09] MEDS: Buprenorphine/Naloxone 8/2 mg FILM 1 FILM SUBLINGUAL ×2 (08:26→16:07)
[2023-07-09] MEDS: Dextroamphetamine/Amphetamine XR 10 MG CAP.ER.24H 20 MG PO (08:26)
[2023-07-09] MEDS: FLUoxetine HCl 20 MG CAPSULE PO (08:26)
--- NOTE | 2023-07-09 09:41 | HO.PSYCHPN ---
Subjective Subjective Date of Service: 07/09/23 Reason For Visit: Unspecified depressive disorder Interim History: met with patient; discussed with team Patient reports doing well today, mood better. Denies any SI at all. Feels that medications have been very helpful and is able to use coping skills. Discussed aftercare and patient says he thinks he is headed towards being ready for discharge. Would like outpatient therapist and to attend [facility]. Sleeping well; eating well. Mental Status Exam Mental Status Exam Narrative: Pt is alert and oriented; behavior is cooperative, calm; patient is not in distress; patient dressed in casual attire with unkempt hair but adequate hygiene; mood is described as better and affect congruent; eye contact appropriate; Speech is normal rate, volume and prosody and not pressured; some mild psychomotor retardation present; thought process is organized and goal directed; Thought content is on tx; otherwise pertinent to relevant topics and without any delusional content, paranoid ideations or grandiosity; no SI; no HI; There is no evidence of perceptual disturbance and denies AVH. Patients insight and judgment fair Diagnostics Vital Signs (24Hr): Vital Signs - 24 hr 07/08/23 18:00 07/09/23 08:00 Temperature 97.4 F 98.7 F Pulse Rate 66 70 Respiratory Rate 17 16 Blood Pressure 137/80 120/69 Pulse Oximetry 98 96 Oxygen Delivery Method Room Air Room Air Labs 07/03/23 08:02 Medications Medications Current Medications Acetaminophen (Acetaminophen 325 Mg Tablet) 650 mg PO Q6H PRN PRN Reason: Headache/Pain Mild Scale (1-3) Al Hydroxide/Mg Hydroxide (Magnesium Hydrox/Alum Hydrox 30 Ml Oral.Susp) 30 ml PO Q6H PRN PRN Reason: Heartburn/Nausea Amphetamine/Dextroamphetamine (Dextroamphetamine/Amphetamine Xr 10 Mg Cap.Er.24h) 20 mg PO DAILY [facility] Last Admin: 07/09/23 08:26 Dose: 20 mg Buprenorphine/Naloxone (Buprenorphine/Naloxone 8/2 Mg Film) 1 film SUBLINGUAL BID@0900,1600 [facility] Last Admin: 07/09/23 08:26 Dose: 1 film Bupropion HCl (Bupropion Hcl Xl 300 Mg Tab.Er.24h) 300 mg PO DAILY [facility] Last Admin: 07/09/23 08:26 Dose: 300 mg Clonidine HCl (Clonidine Hcl 0.1 Mg Tablet) 0.1 mg PO Q4H PRN; Protocol PRN Reason: anxiety Last Admin: 07/07/23 22:07 Dose: 0.1 mg Fluoxetine HCl (Fluoxetine Hcl 20 Mg Capsule) 20 mg PO DAILY [facility] Last Admin: 07/09/23 08:26 Dose: 20 mg Hydroxyzine HCl (Hydroxyzine Hcl 50 Mg Tablet) 50 mg PO TID PRN PRN Reason: Anxiety Last Admin: 07/04/23 16:00 Dose: 50 mg Magnesium Hydroxide (Milk Of Magnesia 30 Ml Oral.Susp) 30 ml PO DAILY PRN PRN Reason: Constipation Nicotine (Nicotine 21 Mg Patch.Td24) 21 mg TRANSDERMA DAILY [facility] Last Admin: 07/09/23 08:25 Dose: 21 mg Nicotine Polacrilex (Nicotine Polacrilex 2 Mg Gum) 4 mg BUCCAL Q2H PRN PRN Reason: Nicotine Cravings Trazodone HCl (Trazodone Hcl 50 Mg Tablet) 50 mg PO BEDTIME MRX1 PRN PRN Reason: Insomnia Allergies Allergies Allergy/AdvReac Type Severity Reaction Status Date / Time No Known Allergies Allergy Verified 07/02/23 16:55 Assessment & Plan Assessment & Plan (1) Medical clearance for psychiatric admission: Status: Acute Code(s): Z00.8 - Encounter for other general examination Plan Patient is a 32-year-old male with history of depression, PTSD, opioid abuse, recently discharged from [facility], who self presents for continued depression and suicidal ideation. Patient reports that he is struggle with depression and PTSD symptoms from childhood trauma for years. About 6 months ago he was admitted to [facility] psychiatric unit and was started on low dose of Wellbutrin; was feeling better for while however intermittent relapse and ongoing negative self dialogue triggered by traumatic memories was enough to return depressive symptoms. About 3 weeks ago he self presented and was admitted again to [facility] at which time he was started on Suboxone. He remained depressed and started having increased suicidal thinking, contemplating about hanging himself or overdosing on drugs; patient did not want to and had hoped to get better and so presented to [facility] and his Wellbutrin was increased to 300 mg. However he feels he left prematurely and remained suicidal so again self presented to the hospital wanting treatment. Denies any history of manic type episodes or behaviors; denies any AVH; denies any alcohol abuse. Says he has reduced his opioid relapses to about once every 3 weeks which is an improvement but he agrees he needs to be sober to remains stable. Endorses childhood trauma with PTSD symptoms of flashbacks, nightmares. -patient wants help; would like to continue on Wellbutrin XL 300 mg; since he recently started this is not sure if he is ready to try and augment it however is open to considering Augmentin medications Hospital course: 07/04 Adding?Prozac?10?mg? Continue?Wellbutrin?XL?300?mg;?decided?to?add?Prozac?since?patient?has?had?no?benefit?with?increased?Wellbutrin?after?a?week.??Will?continue?with?Wellbutrin?since?patient?had?partial?benefit At?150?mg;?if?patient?improves?on?Prozac?will?likely?lower?Wellbutrin?back?to?150 07/05 patient feels that he is doing a little better and although depression remains a little more hopeful; he wonders if it is because he started Prozac. Patient going to groups and invested in treatment 07/06?patient?feels?depressed?and?asked?for?Prozac?to?be?increased no SI today. First-time 07/08 Patient report feeling a little depressed today And had some suicidal ideation. However he remembered what rider ticket worker shared about using Positive talk and so went to his room and use this coping skill which he said was helpful. Tooling Engineering Tech and patient engaged in CBT exercise looking at automatic thoughts and how they affect feelings and behaviors; also the origin of core beliefs. Exercise resonate with patient who would like to work on this idea tonight on his own and discuss it more. Also discussed patient's history of ADHD. He was diagnosed in grade school and was on stimulant medication all through school which he said was a significant help. He was also put on Adderall in his adult life which he said helped eliminate his cravings and during which time he was sober. Patient asked if he could restart this now. Tooling Engineering Tech reviewed risks/side effects of this medication including its combination with Wellbutrin and it is concern for abuse; promotion writer however agreed with patient that potential benefit outweighs risks 07/09 patient reports doing better; no SI today at all. Feels like he is getting ready for discharge and discussing aftercare plans Plan: CV Q 15 minute checks adding Adderall XR 20 mg daily Continue Prozac 20 mg Continue Wellbutrin XL 300 mg daily Continue Suboxone 8/2 mg b.i.d. Consider prazosin/clonidine scheduled at bedtime for nightmares Considering augmentation with BuSpar, Prozac or Lamictal DC Effexor; patient says does not like the feeling of it Patient agrees that he needs therapy and would like to find therapeutic provider Reviewed labs from sending facility QTC WNL CBC, lytes, BUN/creatinine WNL Mildly elevated LFTs UDS positive for cocaine; patient denies using cocaine Patient educated on: diagnosis and medication risk/benefits Informed Consent: understands Reason for continued inpatient stay Substantial Risk for: stable for discharge Time Spent With Patient Time: Total time managing care of this patient today ____ minutes.
[2023-07-09 21:12] VITALS: BP 118/81; PULSE 78; TEMP 36.3
[2023-07-09] MEDS: cloNIDine HCL 0.1 MG TABLET PO (22:32)
[2023-07-10] MEDS: Nicotine 21 MG PATCH.TD24 TRANSDERMA (08:32)
[2023-07-10] MEDS: buPROPion HCl XL 300 MG TAB.ER.24H PO (08:33)
[2023-07-10] MEDS: FLUoxetine HCl 20 MG CAPSULE PO (08:33)
[2023-07-10] MEDS: Buprenorphine/Naloxone 8/2 mg FILM 1 FILM SUBLINGUAL ×2 (08:33→16:27)
[2023-07-10] MEDS: Dextroamphetamine/Amphetamine XR 10 MG CAP.ER.24H 20 MG PO (08:33)
[2023-07-10 09:35] VITALS: BP 108/61; PULSE 74; RESP 16; TEMP 36.3; O2SAT 98
--- NOTE | 2023-07-10 09:40 | P.PNPSI_ITS ---
Subjective Subjective Date of Service: 07/10/23 Reason For Visit: Unspecified depressive disorder Interim History: met with patient; discussed in team pt says doing well, no SI at all today; feeling better, hopeful. Feels ready for discharge planning. Did another CBT exercise with patient, challenging neg automatic thought which resonated with patient who reports using this technique on his own as coping skill; discussed hx of trauma, ramifications. Mental Status Exam Mental Status Exam Narrative: Pt is alert and oriented; behavior is cooperative, calm; patient is not in distress; patient dressed in casual attire with unkempt hair but adequate hygiene; mood is described as better and affect congruent; eye contact appropriate; Speech is normal rate, volume and prosody and not pressured; some mild psychomotor retardation present; thought process is organized and goal directed; Thought content is on tx; otherwise pertinent to relevant topics and without any delusional content, paranoid ideations or grandiosity; no SI; no HI; There is no evidence of perceptual disturbance and denies AVH. Patients insight and judgment fair Diagnostics Vital Signs (24Hr): Vital Signs - 24 hr 07/09/23 21:12 07/10/23 09:35 Temperature 97.3 F 97.4 F Pulse Rate 78 74 Respiratory Rate 16 Blood Pressure 118/81 108/61 Pulse Oximetry 98 Oxygen Delivery Method Room Air Labs 07/03/23 08:02 Medications Medications Current Medications Acetaminophen (Acetaminophen 325 Mg Tablet) 650 mg PO Q6H PRN PRN Reason: Headache/Pain Mild Scale (1-3) Al Hydroxide/Mg Hydroxide (Magnesium Hydrox/Alum Hydrox 30 Ml Oral.Susp) 30 ml PO Q6H PRN PRN Reason: Heartburn/Nausea Amphetamine/Dextroamphetamine (Dextroamphetamine/Amphetamine Xr 10 Mg Cap.Er.24h) 20 mg PO DAILY [facility] Last Admin: 07/10/23 08:33 Dose: 20 mg Buprenorphine/Naloxone (Buprenorphine/Naloxone 8/2 Mg Film) 1 film SUBLINGUAL BID@0900,1600 [facility] Last Admin: 07/10/23 08:33 Dose: 1 film Bupropion HCl (Bupropion Hcl Xl 300 Mg Tab.Er.24h) 300 mg PO DAILY [facility] Last Admin: 07/10/23 08:33 Dose: 300 mg Clonidine HCl (Clonidine Hcl 0.1 Mg Tablet) 0.1 mg PO Q4H PRN; Protocol PRN Reason: anxiety Last Admin: 07/09/23 22:32 Dose: 0.1 mg Fluoxetine HCl (Fluoxetine Hcl 20 Mg Capsule) 20 mg PO DAILY [facility] Last Admin: 07/10/23 08:33 Dose: 20 mg Hydroxyzine HCl (Hydroxyzine Hcl 50 Mg Tablet) 50 mg PO TID PRN PRN Reason: Anxiety Last Admin: 07/04/23 16:00 Dose: 50 mg Magnesium Hydroxide (Milk Of Magnesia 30 Ml Oral.Susp) 30 ml PO DAILY PRN PRN Reason: Constipation Nicotine (Nicotine 21 Mg Patch.Td24) 21 mg TRANSDERMA DAILY [facility] Last Admin: 07/10/23 08:32 Dose: 21 mg Nicotine Polacrilex (Nicotine Polacrilex 2 Mg Gum) 4 mg BUCCAL Q2H PRN PRN Reason: Nicotine Cravings Trazodone HCl (Trazodone Hcl 50 Mg Tablet) 50 mg PO BEDTIME MRX1 PRN PRN Reason: Insomnia Allergies Allergies Allergy/AdvReac Type Severity Reaction Status Date / Time No Known Allergies Allergy Verified 07/02/23 16:55 Assessment & Plan Assessment & Plan (1) Medical clearance for psychiatric admission: Status: Acute Code(s): Z00.8 - Encounter for other general examination Plan Patient is a 32-year-old male with history of depression, PTSD, opioid abuse, recently discharged from [facility], who self presents for continued depression and suicidal ideation. Patient reports that he is struggle with depression and PTSD symptoms from childhood trauma for years. About 6 months ago he was admitted to [facility] psychiatric unit and was started on low dose of Wellbutrin; was feeling better for while however intermittent relapse and ongoing negative self dialogue triggered by traumatic memories was enough to return depressive symptoms. About 3 weeks ago he self presented and was admitted again to [facility] at which time he was started on Suboxone. He remained depressed and started having increased suicidal thinking, contemplating about hanging himself or overdosing on drugs; patient did not want to and had hoped to get better and so presented to [facility] and his Wellbutrin was increased to 300 mg. However he feels he left prematurely and remained suicidal so again self presented to the hospital wanting treatment. Denies any history of manic type episodes or behaviors; denies any AVH; denies any alcohol abuse. Says he has reduced his opioid relapses to about once every 3 weeks which is an improvement but he agrees he needs to be sober to remains stable. Endorses childhood trauma with PTSD symptoms of flashbacks, nightmares. -patient wants help; would like to continue on Wellbutrin XL 300 mg; since he recently started this is not sure if he is ready to try and augment it however is open to considering Augmentin medications Hospital course: 07/04 Adding?Prozac?10?mg? C ontinue?Wellbutrin?XL?300?mg;?decided?to?add?Prozac?since?patient?has?had?no?vita efit?with?increased? Wellbutrin?after?a?week.??Will?continue?with?Wellbutrin?since?patient?had?partia l?benefit A t?150?mg;?if?patient?improves?on?Prozac?will?likely?lower?Wellbutrin?back?to?150 07/05 patient feels that he is doing a little better and although depression remains a little more hopeful; he wonders if it is because he started Prozac. Patient going to groups and invested in treatment 07/06?patient?feels?depressed?and?asked?for?Prozac?to?be?increased no SI today. First-time 07/08 Patient report feeling a little depressed today And had some suicidal ideation. However he remembered what wheel worker shared about using Positive talk and so went to his room and use this coping skill which he said was helpful. Shaker Plate Operator and patient engaged in CBT exercise looking at automatic thoughts and how they affect feelings and behaviors; also the origin of core beliefs. Exercise resonate with patient who would like to work on this idea tonight on his own and discuss it more. Also discussed patient's history of ADHD. He was diagnosed in grade school and was on stimulant medication all through school which he said was a significant help. He was also put on Adderall in his adult life which he said helped eliminate his cravings and during which time he was sober. Patient asked if he could restart this now. Shaker Plate Operator reviewed risks/side effects of this medication including its combination with Wellbutrin and it is concern for abuse; card writer hand however agreed with patient that potential benefit outweighs risks 07/09 patient reports doing better; no SI today at all. Feels like he is getting ready for discharge and discussing aftercare plans 07/10 stabilizing well; no SI, using coping skills. Hopefull and feeling ready to return to community. Pt is future oriented with aftercare being set up. Will proceed with dc planning Plan: CV Q 15 minute checks adding Adderall XR 30 mg daily Continue Prozac 20 mg Continue Wellbutrin XL 300 mg daily Continue Suboxone 8/2 mg b.i.d. Consider prazosin/clonidine scheduled at bedtime for nightmares Considering augmentation with BuSpar, Prozac or Lamictal DC Effexor; patient says does not like the feeling of it Patient agrees that he needs therapy and would like to find therapeutic provider Reviewed labs from sending facility QTC WNL CBC, lytes, BUN/creatinine WNL Mildly elevated LFTs UDS positive for cocaine; patient denies using cocaine Patient educated on: diagnosis, medication risk/benefits, substance abuse and therapeutic strategies Informed Consent: understands Reason for continued inpatient stay Substantial Risk for: stable for discharge Time Spent With Patient Time: Total time managing care of this patient today ____ minutes.
[2023-07-10 19:49] VITALS: BP 142/87; PULSE 73; TEMP 36.5
[2023-07-11 08:22] VITALS: BP 103/59; PULSE 82; RESP 16; TEMP 36.2; O2SAT 96
[2023-07-11] MEDS: FLUoxetine HCl 20 MG CAPSULE PO (08:29)
[2023-07-11] MEDS: buPROPion HCl XL 300 MG TAB.ER.24H PO (08:29)
[2023-07-11] MEDS: Nicotine 21 MG PATCH.TD24 TRANSDERMA (08:29)
[2023-07-11] MEDS: Buprenorphine/Naloxone 8/2 mg FILM 1 FILM SUBLINGUAL ×2 (08:29→16:00)
[2023-07-11] MEDS: Dextroamphetamine/Amphetamine XR 10 MG CAP.ER.24H 30 MG PO (08:29)
--- NOTE | 2023-07-11 09:48 | P.PNPSI_ITS ---
Subjective Subjective Date of Service: 07/11/23 Reason For Visit: Unspecified depressive disorder Subjective Notes: Conditional Voluntary Interim History: Pt reports he feels much better, less depressed. No SI/HI. He reports he feels more parts of the day are good. No VH/AH. Sleeping well. Some dreams at night but reports not nightmares. He is visible on the unit and attends groups. Diagnostics Vital Signs (24Hr): Vital Signs - 24 hr 07/10/23 19:49 07/11/23 08:22 Temperature 97.7 F 97.1 F Pulse Rate 73 82 Respiratory Rate 16 Blood Pressure 142/87 H 103/59 L Pulse Oximetry 96 Oxygen Delivery Method Room Air Labs 07/03/23 08:02 Medications Medications Current Medications Acetaminophen (Acetaminophen 325 Mg Tablet) 650 mg PO Q6H PRN PRN Reason: Headache/Pain Mild Scale (1-3) Al Hydroxide/Mg Hydroxide (Magnesium Hydrox/Alum Hydrox 30 Ml Oral.Susp) 30 ml PO Q6H PRN PRN Reason: Heartburn/Nausea Amphetamine/Dextroamphetamine (Dextroamphetamine/Amphetamine Xr 10 Mg Cap.Er.24h) 30 mg PO DAILY [facility] Last Admin: 07/11/23 08:29 Dose: 30 mg Buprenorphine/Naloxone (Buprenorphine/Naloxone 8/2 Mg Film) 1 film SUBLINGUAL BID@0900,1600 [facility] Last Admin: 07/11/23 08:29 Dose: 1 film Bupropion HCl (Bupropion Hcl Xl 300 Mg Tab.Er.24h) 300 mg PO DAILY [facility] Last Admin: 07/11/23 08:29 Dose: 300 mg Clonidine HCl (Clonidine Hcl 0.1 Mg Tablet) 0.1 mg PO Q4H PRN; Protocol PRN Reason: anxiety Last Admin: 07/09/23 22:32 Dose: 0.1 mg Fluoxetine HCl (Fluoxetine Hcl 20 Mg Capsule) 20 mg PO DAILY [facility] Last Admin: 07/11/23 08:29 Dose: 20 mg Hydroxyzine HCl (Hydroxyzine Hcl 50 Mg Tablet) 50 mg PO TID PRN PRN Reason: Anxiety Last Admin: 07/04/23 16:00 Dose: 50 mg Magnesium Hydroxide (Milk Of Magnesia 30 Ml Oral.Susp) 30 ml PO DAILY PRN PRN Reason: Constipation Nicotine (Nicotine 21 Mg Patch.Td24) 21 mg TRANSDERMA DAILY [facility] Last Admin: 07/11/23 08:29 Dose: 21 mg Nicotine Polacrilex (Nicotine Polacrilex 2 Mg Gum) 4 mg BUCCAL Q2H PRN PRN Reason: Nicotine Cravings Trazodone HCl (Trazodone Hcl 50 Mg Tablet) 50 mg PO BEDTIME MRX1 PRN PRN Reason: Insomnia Allergies Allergies Allergy/AdvReac Type Severity Reaction Status Date / Time No Known Allergies Allergy Verified 07/02/23 16:55 Assessment & Plan Assessment & Plan (1) MDD (major depressive disorder), recurrent severe, without psychosis: Status: Acute Code(s): F33.2 - Major depressive disorder, recurrent severe without psychotic features (2) PTSD (post-traumatic stress disorder): Status: Acute Code(s): F43.10 - Post-traumatic stress disorder, unspecified (3) Opioid use disorder: Status: Acute Code(s): F11.90 - Opioid use, unspecified, uncomplicated Plan Patient is a 32-year-old male with history of depression, PTSD, opioid abuse, recently discharged from [facility], who self presents for continued depression and suicidal ideation. Patient reports that he is struggle with depression and PTSD symptoms from childhood trauma for years. About 6 months ago he was admitted to [facility] psychiatric unit and was started on low dose of Wellbutrin; was feeling better for while however intermittent relapse and ongoing negative self dialogue triggered by traumatic memories was enough to return depressive symptoms. About 3 weeks ago he self presented and was admitted again to [facility] at which time he was started on Suboxone. He remained depressed and started having increased suicidal thinking, contemplating about hanging himself or overdosing on drugs; patient did not want to and had hoped to get better and so presented to [facility] and his Wellbutrin was increased to 300 mg. However he feels he left prematurely and remained suicidal so again self presented to the hospital wanting treatment. Denies any history of manic type episodes or behaviors; denies any AVH; denies any alcohol abuse. Says he has reduced his opioid relapses to about once every 3 weeks which is an improvement but he agrees he needs to be sober to remains stable. Endorses childhood trauma with PTSD symptoms of flashbacks, nightmares. -patient wants help; would like to continue on Wellbutrin XL 300 mg; since he recently started this is not sure if he is ready to try and augment it however is open to considering Augmentin medications Hospital course: 07/04 Adding?Prozac?10?mg? C ontinue?Wellbutrin?XL?300?mg;?decided?to?add?Prozac?since?patient?has?had?no?vita efit?with?increased? Wellbutrin?after?a?week.??Will?continue?with?Wellbutrin?since?patient?had?partia l?benefit A t?150?mg;?if?patient?improves?on?Prozac?will?likely?lower?Wellbutrin?back?to?150 07/05 patient feels that he is doing a little better and although depression remains a little more hopeful; he wonders if it is because he started Prozac. Patient going to groups and invested in treatment 07/06?patient?feels?depressed?and?asked?for?Prozac?to?be?increased no SI today. First-time 07/08 Patient report feeling a little depressed today And had some suicidal ideation. However he remembered what farmworker field crop shared about using Positive talk and so went to his room and use this coping skill which he said was helpful. Paperboard Boxes Estimator and patient engaged in CBT exercise looking at automatic thoughts and how they affect feelings and behaviors; also the origin of core beliefs. Exercise resonate with patient who would like to work on this idea tonight on his own and discuss it more. Also discussed patient's history of ADHD. He was diagnosed in grade school and was on stimulant medication all through school which he said was a significant help. He was also put on Adderall in his adult life which he said helped eliminate his cravings and during which time he was sober. Patient asked if he could restart this now. Paperboard Boxes Estimator reviewed risks/side effects of this medication including its combination with Wellbutrin and it is concern for abuse; sql report writer however agreed with patient that potential benefit outweighs risks 07/09 patient reports doing better; no SI today at all. Feels like he is getting ready for discharge and discussing aftercare plans Plan: CV Q 15 minute checks adding Adderall XR 20 mg daily Continue Prozac 20 mg Continue Wellbutrin XL 300 mg daily Continue Suboxone 8/2 mg b.i.d. Consider prazosin/clonidine scheduled at bedtime for nightmares Considering augmentation with BuSpar, Prozac or Lamictal DC Effexor; patient says does not like the feeling of it Patient agrees that he needs therapy and would like to find therapeutic provider Reviewed labs from sending facility QTC WNL CBC, lytes, BUN/creatinine WNL Mildly elevated LFTs UDS positive for cocaine; patient denies using cocaine 07/11 pt reports feeling much better. No SI/HI. No VH/AH. Reason for continued inpatient stay Substantial Risk for: stable for discharge Time Spent With Patient Time: Total time managing care of this patient today ____ minutes.
[2023-07-11 18:00] VITALS: BP 124/72; PULSE 72; RESP 17; TEMP 36.6; O2SAT 96
[2023-07-12 07:50] VITALS: BP 120/63; PULSE 77; RESP 18; TEMP 36.4; O2SAT 97
--- NOTE | 2023-07-12 08:36 | PM.PSYDC ---
DS: Providers Provider Date of Service: 07/12/23 Date of admission: 07/02/23 16:31 Date of discharge: 07/12/23 Primary care physician: None Physician Attending physician on admission: Yonatan Fonseca Consults: 07/02/23 16:55 Consult to Hospitalist Routine Comment: Consulting Provider: Hospitalist Reason For Exam: Hospital Transfer Attending physician on discharge: Yonatan Fonseca DS: Diagnosis Discharge Diagnosis (1) MDD (major depressive disorder), recurrent severe, without psychosis: Status: Acute (2) PTSD (post-traumatic stress disorder): Status: Acute (3) Opioid use disorder: Status: Acute DS: Medications Discharge Medications Home Medications: Home Medications Medication Instructions Recorded Confirmed buprenorphine 8 mg-naloxone 2 mg 20 mg sublingual BID 07/02/23 07/02/23 sublingual film (Suboxone) Previous Rx's Medication Instructions Recorded bupropion HCl 300 mg 24 hr tablet, 300 mg PO DAILY 30 days #30 tabs 07/12/23 extended release clonidine HCl 0.1 mg tablet 0.1 mg PO TID PRN anxiety 30 days 07/12/23 #60 tabs dextroamphetamine-amphetamine ER 30 mg PO DAILY 30 days #30 caps 07/12/23 30 mg 24hr capsule,extend release fluoxetine 20 mg capsule 20 mg PO DAILY 30 days #30 caps 07/12/23 hydroxyzine pamoate 50 mg capsule 50 mg PO TID PRN Anxiety 30 days 07/12/23 #60 caps nicotine (polacrilex) 4 mg buccal 4 mg buccal Q2-4H PRN nicotine 07/12/23 lozenge craving 30 days #108 ea nicotine 21 mg/24 hr daily 21 mg transdermal DAILY PRN 07/12/23 transdermal patch smoking cessation 28 days #28 ea Mental Status Exam Mental Status Exam Narrative: pleasant. Engaged. Casually dressed and presented. Organized. Euthymic. No SI. No HI. Agitation. No psychosis. Insight and judgment good DS: Summary Hospital Course Hospital Course: HPI: per crisis lyndon pt JEREMIE called by himself with c/o SI with plan to hang himself. no clear precipitant, has been going on for several weeks. endorsed sleeping well but decreased appetite and energy. 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 was recently on M5 from 07/02-07/12, did not F/U at scheduled [facility] appointment on 07/18. he reported having been compliant with all medication Rxed from save adderall. on interview with MD, the above Hx recounted. it was noted that patient discharged from 2 months ago with a one-month supply of medication. he has no prescriber and has not gotten any refills. this would mean pt has been compliant with his medications no more than 50% of the time in the past 2 months. he reported he suddenly stopped taking his adderall about 2 weeks ago and was off of it until the past several days in the hospital. he is able to correlate the worst of his depressive Sx and SI to the past 2 weeks, since stopping the adderall. mood-elevating effects of stimulants reviewed, as well as stimulant withdrawal syndrome Sx. pt expressed his plan as to return to his previous psych med regimen, as has been done, and with the request to change adderall to vyvanse. pt believes he has become tolerant to the adderall, feeling it no longer helps him focus as it used to, and would like to try something different. discussed that vyvanse is non-formulary at [facility] and that his lack of medication compliance for the past 2 months coupled with his recent sudden cessation of adderall make it difficult to understand quite what is due to what right now. pt agreed with plan to restabilize him on his usual medications and to F/U with an outpatient prescriber for any stimulant changes once he has been restablished on his prior regimen. Past Psychiatric History: History of psychiatric admission; 3 prior admissions SA: hanging, 2021 outpt - did not F/U with referral at discharge from 07/12. currently no prescriber. h/o PTSD Dx Medication trials: Adderall, Strattera, Effexor ( at a low dose but made him feel weird ) Hospital course: 09/10: restart prior outpt regimen, restabilize. refer for outpt providers. 09/11: reflecting on trauma Hx and connection to drug use and current psych Sx. educated re EBP for PTSD. continue current mgmt. pt reflects that his mood has been worse these past 6 months of sobriety, which he attributes to all these memories flooding back in. discuss his trauma Hx, proper therapies. per staff, c/o mild anxiety and depression. feeling better since arrival. visible, social. -mood improving, no SI 09/12: started prazosin 1 mg at HS, titrate up for insomnia/agitated disturbed sleep. continue current mgmt otherwise. reporting crazy dreams, disrupted sleep, awakening in an agitated state. agreeable to start prazosin at HS. per staff, visible, social. dep 3. little anxiety. meals and meds. planning for friday. -mood good 09/13/2023: Increase prazosin to 2 mg met with patient. Overall has been doing well. Reports mood has significantly improved. Not suicidal. Still has intermittent nightmares. Reports wanting follow-up care in therapy. Doing well on sublocade. Prazosin started but nightmare still evident and will increase dose. Feeling supported in the hospital and also from a community setting and has the availability of staying either [place] or [place]. 09/14/2023: Increase prazosin to 4 mg Remains overall has been doing well. main issue are nightmares. Tolerated prazosin 2 mg last night. Is not on a nicotine patch. Otherwise, mood has significantly improved. Not suicidal. interacting well with peers. Enjoying football. Reports wanting follow-up care in therapy. Feeling supported in the hospital Patient stabilized; reported good mood which he felt had significantly improved; SI remained fully resolved. Not in imminent risk for harm to self or others and appropriate to return to the community for treatment. Time spent discussing smoking cessation with patient: 3 to 10 minutes Status at Discharge Functional status at discharge: independent ambulation Overall status at discharge: patient is back to baseline Time Spent with Patient Time attestation: Total time managing care of this patient today ____ minutes. Time spent: Less than 30 minutes Discharge Plan Discharge Anticipated Discharge Date/Time: 07/12/23 11:00 Patient Disposition: Home, Self-Care Discharge Diagnosis: MDD, recurrent, severe without psychosis, in full remission Referrals: [facility]Other] - 07/21/23 12:00 pm (Friday through Friday 9:30 to 1:00pm for four weeks.) [facility] [Other] - 07/14/23 10:30 am Clinical and Support Options Intake [facility] [Other] - 07/18/23 11:00 am (Call them w your new number.) [facility] [Other] - 1 Week (If you have any questions or concerns, please utilize their walk in service or give them a call. ) Discharge Medications: New nicotine 21 mg/24 hr Patch 24 Hour 21 mg transdermal DAILY PRN (Reason: smoking cessation) 28 Days Qty: 28 1RF bupropion HCl 300 mg Tablet Extended Release 24 Hr 300 mg PO DAILY 30 Days Qty: 30 1RF dextroamphetamine-amphetamine 30 mg capsule,extended release 24hr 30 mg PO DAILY 30 Days Qty: 30 0RF Rx Instructions: Partial Fill upon patient request. fluoxetine 20 mg Capsule 20 mg PO DAILY 30 Days Qty: 30 1RF Continued hydroxyzine pamoate 50 mg Capsule 50 mg PO TID PRN (Reason: Anxiety) 30 Days Qty: 60 1RF Changed clonidine HCl 0.1 mg tablet 0.1 mg PO TID PRN (Reason: anxiety) 30 Days Qty: 60 1RF Discontinued trazodone 50 mg Tablet 50 mg PO BEDTIME PRN (Reason: insomnia ) venlafaxine 75 mg Tablet Extended Release 24hr 75 mg PO DAILY nicotine (polacrilex) 4 mg Lozenge 4 mg BUCCAL Q2-4H PRN (Reason: nicotine craving ) No Action trazodone 50 mg Tablet 50 mg PO BEDTIME PRN (Reason: Insomnia) omeprazole 20 mg Capsule,Delayed Release(Dr/Ec) 20 mg PO DAILY@0630 Sublocade 300 mg/1.5 mL Solution, Extended Rel Syringe 300 mg SUBCUT QMONTH Discharge Orders: Discharge Order (Routine); Ordered 07/12/23 Ordered By: Yonatan Fonseca Diet: Regular diet Activity on Discharge: As tolerated Stand Alone Forms: Patient Portal Discharge page, Community Support Care Plan Goals: Maintain mood and safe behaviors Take medications as prescribed Continue to pursue sobriety Practice coping skills Continue with outpatient providers and reach out to them as needed Health Concerns: Mood stability and behaviors Sobriety Plan of Treatment: Follow up with your PCP, psychiatric provider and other outpatient providers regarding above concerns Take medications as prescribed Assessment: Risk assessment at time of discharge:? Patient was interviewed prior to discharge and found to be fully oriented and without any SI or HI. Patient has improved insight and judgment and wants to continue treatment. Patient is not in imminent risk of harm to self or others and has a safety plan that includes presenting to the closest ER or calling 911 if feeling unsafe.? Patient has been observed closely by nursing and unit staff throughout admission; patient has not engaged in any behaviors that suggest dangerousness to self or others and has demonstrated appropriate behaviors and impulse control Discharge Date/Time: 07/12/23 11:57
[2023-07-12] MEDS: Nicotine 21 MG PATCH.TD24 TRANSDERMA (08:49)
[2023-07-12] MEDS: FLUoxetine HCl 20 MG CAPSULE PO (08:50)
[2023-07-12] MEDS: Dextroamphetamine/Amphetamine XR 10 MG CAP.ER.24H 30 MG PO (08:50)
[2023-07-12] MEDS: buPROPion HCl XL 300 MG TAB.ER.24H PO (08:50)
[2023-07-12] MEDS: Buprenorphine/Naloxone 8/2 mg FILM 1 FILM SUBLINGUAL (08:51)
[2023-07-12] MEDS: Naloxone HCl Nasal TAKE HOME 4 MG SPRAY 8 MG NOSTRILALT (10:59)
== END 2023-07-12 11:57 | disposition home or self-care (01) | DRG 751 ==
PROVIDERS: Admitting Provider Clinical Nurse Specialist Psychiatric/Mental Health, Adult; Visit Provider Psychiatry & Neurology Psychiatry
DX: F33.2 Major depressive disorder, recurrent severe without psychotic features (principal); R45.851 Suicidal ideations; F11.20 Opioid dependence, uncomplicated; F90.9 Attention-deficit hyperactivity disorder, unspecified type; F43.10 Post-traumatic stress disorder, unspecified; Z62.810 Personal history of physical and sexual abuse in childhood; Z79.899 Other long term (current) drug therapy
CPT/HCPCS: 36415; 80053; 80061; 82607; 82746; 83036; 83735; 84439; 84443

== ENCOUNTER → 2023-07-02 16:31 | Outpatient (BNV) | payer OTHER, SELFPAY | PROVIDERS: Visit Provider Psychiatry & Neurology Psychiatry | DX: F33.2 Major depressive disorder, recurrent severe without psychotic features (principal); F43.10 Post-traumatic stress disorder, unspecified; F11.90 Opioid use, unspecified, uncomplicated | CPT/HCPCS: 99231; 99232 ==

== ENCOUNTER → 2023-07-02 16:31 | Outpatient (BNV) | payer MEDICAID, SELFPAY | PROVIDERS: Visit Provider Student in an Organized Health Care Education/Training Program | DX: Z00.8 Encounter for other general examination (principal) | CPT/HCPCS: 99222 ==

== ENCOUNTER 2023-09-06 22:44 | Inpatient (IN) | payer MEDICAID, OTHER, SELFPAY ==
--- NOTE | 2023-09-06 | ECG_ITS ---
Test Reason : CHEST PRESSURE Blood Pressure : / mmHG Vent. Rate : 090 BPM Atrial Rate : 090 BPM P-R Int : 144 ms QRS Dur : 106 ms QT Int : 380 ms P-R-T Axes : 045 023 028 degrees QTc Int : 464 ms Normal sinus rhythm Normal ECG No previous ECGs available Referred By: Generic ED Physician Electronically Signed By:LEONORA KELLY
--- NOTE | ~2023-09-06 | XR_ITS ---
EXAMINATION: XR CHEST CLINICAL INFORMATION: Chest pain. COMPARISON: None available. TECHNIQUE: Frontal view of the chest was obtained. FINDINGS: No significant abnormality is noted involving the heart, lungs, mediastinum, bony thorax or soft tissues. XR/XR chest 1V IMPRESSION: Unremarkable examination.
[2023-09-06 22:53] VITALS: BP 139/86; PULSE 105; O2SAT 97
[2023-09-06 23:01] VITALS: BP 134/72; PULSE 85; RESP 18; TEMP 36.3; O2SAT 98; BMI 21.8
--- NOTE | 2023-09-06 23:05 | PC.NURSE ---
IV pulled in triage.
--- NOTE | 2023-09-06 23:38 | PC.NURSE ---
Assumed care of pt. Assessed as documented. Pt lying on stretcher, calm and cooperative with staff at this time, no acute distress. Continuing plan of care with safety plans per prtocol.
--- NOTE | 2023-09-06 23:42 | ECG_ITS ---
Test Reason : SI Blood Pressure : / mmHG Vent. Rate : 069 BPM Atrial Rate : 069 BPM P-R Int : 160 ms QRS Dur : 108 ms QT Int : 394 ms P-R-T Axes : -09 014 031 degrees QTc Int : 422 ms Normal sinus rhythm Normal ECG When compared with ECG of 06-SEP-2023 22:58, No significant change was found Referred By: Nigel Morrow Electronically Signed By:LEONORA KELLY
--- NOTE | 2023-09-07 00:15 | PC.NURSE ---
Pt taken to XR by security staff. After returning, pt began to complain of SOB, speech clear, full sentences. MD BURKE notified. Pt now sitting in chair in front of television in common area. No further orders at this time.
[2023-09-07 00:17] LABS: MANUAL DIFF FLAG NO
[2023-09-07 00:19] LABS: Basophils Absolute Auto 0.1 X10*3/uL (0.0-0.2); Eosinophils Absolute Auto 0.2 X10*3/uL (0.0-0.4); Eosinophils Percent Auto 3.5 % (0-4); Hematocrit 37.8 % (42.0-52.0); Hemoglobin 12.6 g/dl (14.0-18.0); Imm Gran Abs Auto 0.02 X10*3/uL (0.00-0.03); Imm Gran Pct Auto 0.4 % (0.0-0.4); Lymphocytes Absolute Auto 1.6 X10*3/uL (1.2-4.9); Lymphocytes Percent Auto 31.4 % (20-40); Mean Corpuscular HGB Conc 33.3 g/dl (31.0-36.0); Mean Corpuscular Hemoglobin 28.4 pg (27.0-33.0); Mean Corpuscular Volume 85.1 fL (80.0-98.0); Mean Platelet Volume 9.1 fL (9.4-12.4); Monocytes Absolute Auto 0.4 X10*3/uL (0.1-1.2); Monocytes Percent Auto 7.3 % (2-11); Neutrophils Absolute Auto 2.9 x10*3/uL (2.0-8.3); Neutrophils Percent Auto 56.4 % (45-73); Platelet Count 299 X10*3/uL (160-400); Red Blood Count 4.44 X10*6/uL (4.60-5.80); Red Cell Distribution Width 14.8 % (11.0-16.0); White Blood Count 5.1 X10*3/uL (4.8-10.8)
[2023-09-07 00:21] LABS: Appearance Urine Clear; Color Urine Dark Yellow; Glucose Urine UA Negative (Negative); Leukocyte Esterase Urine Negative (Negative); Nitrite Urine Negative (Negative); PH 7.5 (5.0-9.0); Specific Gravity - Urine >= 1.030 (1.005-1.025); Urine Blood Negative (Negative); Urine Ketones Trace mg/dL (Negative); Urine Protein Trace mg/dL (Neg-Trace)
[2023-09-07] MEDS: Haloperidol Lactate 5 MG/ML VIAL IM (00:31)
[2023-09-07] MEDS: LORazepam 2 MG/ML VIAL IM (00:31)
--- NOTE | 2023-09-07 00:32 | PC.NURSE ---
Gordyl not given - ok'd - not in initial verbal order.
--- NOTE | 2023-09-07 00:32 | PC.NURSE ---
Pt escalated and attempted to exit pod by running into pod doors. Pt returned to room without restraint, sat on bed. Security present at bedside. MD Morrow notified and medication orders placed. Meds administered with voluntary acceptance by patient, no restraint necessary. No further complications. Pt now lying on stretcher, television on.
[2023-09-07 00:36] LABS: Alanine Aminotransferase 114 U/L (0-40); Albumin Level 4.1 g/dL (3.5-5.0); Alkaline Phosphatase 82 U/L (39-117); Anion Gap 13 (12-20); Aspartate Amino Transferase 61 U/L (5-37); Bilirubin Direct < 0.2 mg/dL (0.0-0.5); Bilirubin Total 0.2 mg/dL (0.0-1.0); Blood Urea Nitrogen 12 mg/dL (9-16); Calcium 9.4 mg/dL (8.4-10.2); Carbon Dioxide 29 mmol/L (22-29); Chloride 105 mmol/L (96-108); Estimated Glomerular Filt Rate > 60; Glucose Random 123 mg/dL (60-115); Lipase 11 U/L (8-78); Potassium 4.1 mmol/L (3.3-5.1); Sodium 143 mmol/L (135-145); Total Protein 7.2 g/dL (6.5-8.0)
[2023-09-07 00:54] LABS: Troponin-I High Sensitivity < 2.7 ng/L (<3.5-35.0)
[2023-09-07 01:10] LABS: D Dimer High Sensitivity < 150 NG/ML
--- NOTE | 2023-09-07 01:21 | ED.PSYCH ---
HPI - Psych General Chief Complaint: Psychiatric Symptoms Stated Complaint: CHEST PRESSURE X DAYS Time Seen by Provider: 09/06/23 23:11 Source: patient and EMS Mode of arrival: EMS Limitations: no limitations History of Present Illness HPI Narrative: 32-year-old male history of depression, PTSD, opiate abuse, suicidal ideation came in by ambulance for evaluation of increased paranoid thoughts, suicidal ideation with plan of hanging stool, and chest pain, patient had a history of mental illness and similar symptoms in the past. Related Data Home Medications Medication Instructions Recorded Confirmed buprenorphine 8 mg-naloxone 2 mg 20 mg sublingual BID 07/02/23 07/02/23 sublingual film (Suboxone) Previous Rx's Medication Instructions Recorded bupropion HCl 300 mg 24 hr tablet, 300 mg PO DAILY 30 days #30 tabs 07/12/23 extended release clonidine HCl 0.1 mg tablet 0.1 mg PO TID PRN anxiety 30 days 07/12/23 #60 tabs dextroamphetamine-amphetamine ER 30 mg PO DAILY 30 days #30 caps 07/12/23 30 mg 24hr capsule,extend release fluoxetine 20 mg capsule 20 mg PO DAILY 30 days #30 caps 07/12/23 hydroxyzine pamoate 50 mg capsule 50 mg PO TID PRN Anxiety 30 days 07/12/23 #60 caps nicotine (polacrilex) 4 mg buccal 4 mg buccal Q2-4H PRN nicotine 07/12/23 lozenge craving 30 days #108 ea nicotine 21 mg/24 hr daily 21 mg transdermal DAILY PRN 07/12/23 transdermal patch smoking cessation 28 days #28 ea Allergies Allergy/AdvReac Type Severity Reaction Status Date / Time No Known Allergies Allergy Verified 07/02/23 16:55 Review of Systems Review of Systems: All other systems are reviewed and are negative Constitutional: Reports as per HPI and Reports no additional constitutional complaints Eyes: Reports as per HPI and Reports no additional eye complaints Reports system reviewed and no additional complaints, except as documented Cardiovascular: Reports as per HPI and Reports no additional cardiovascular complaints Respiratory: Reports as per HPI and Reports no additional respiratory complaints Gastrointestinal: Reports as per HPI and Reports no additional gastrointestinal complaints Genitourinary: Reports no additional female genitourinary complaints Musculoskeletal: Reports no additional musculoskeletal complaints Skin/Breast: Reports system reviewed and no additional complaints, except as docu Psychiatric: Reports no additional psychiatric complaints Endocrine: Reports no additional endocrine complaints Hematologic/Lymphatic: Reports no additional hematologic/lymphatic complaints Allergic/Immunologic: Reports no additional allergic/immunologic complaints Reports system reviewed and no additional complaints, except as documented and Reports Abnormal speech present [facility] Past Medical History Medical History Opioid use disorder PTSD (post-traumatic stress disorder) MDD (major depressive disorder), recurrent severe, without psychosis Social History Social History Household Members Other:: Friends Housing: Apartment Do you presently have visiting nurse or other home services: No Patient Tobacco Use Status: Current everyday Tobacco user Smoked in Last 30 Days: Yes e-Cigarette/Vaping Use: Currently Using Second Hand Smoke Exposure: No Use of substances other than those prescribed or required for medical reasons: Yes Substance Use Type: Crack/Cocaine and Heroin Advance Directives: No Advance Directives Information Provided: No service: No Sexual orientation: Straight/Heterosexual Physical Exam Vital Signs: Vital Signs: Last Vital Signs Temp 97.3 F 09/06/23 23:01 Pulse 85 09/06/23 23:01 Resp 18 09/06/23 23:01 BP 134/72 09/06/23 23:01 Pulse Ox 98 09/06/23 23:01 O2 Del Method Room Air 09/06/23 23:01 BMI result Body Mass Index 21.8 Vital signs have been reviewed and appear to be correct. Blood pressure elevated. Heart rate normal. Respiratory rate normal. Temperature normal. Oxygen saturation normal. Appearance: Alert. Oriented X3. No acute distress. Head: Normal external exam. Normocephalic. Atraumatic. No Leigh signs noted. No raccoon eyes noted Eyes: PERRLA. EOMI. Conjunctiva and sclera normal. Eyelids normal. ENT: TM's Normal. Pharynx normal. Uvula midline. Moist mucous membranes. No trismus noted. No drooling noted. No muffled voice noted. Neck: Normal inspection. Neck supple. FROM. No adenopathy. Thyroid Normal. No meningeal signs. No neck mass noted. CVS: Normal heart rate and rhythm. Heart sound normal. No murmurs noted. Pulses normal throughout. Respiratory: No respiratory distress. Painless inspiration. Breath sounds normal. No wheezes/rales/rhonchi noted. Chest nontender. No accessory muscle usage noted or decreased air movement noted. Abdomen: Soft and nontender. Bowel sounds normal in all 4 quadrants. No distention noted. No organomegaly noted. No visible injury noted. Back: No CVA tenderness. Full range of motion noted. Skin: Skin warm and dry. Normal skin color. Normal skin turgor. No rashes/lesions/lacerations noted. Extremities: No lower extremity edema. Extremities exhibit normal range of motion. Extremities nontender. Neuro: Oriented X 3. Cranial nerve exam: II-XII are grossly intact No motor deficit. No sensory deficit. Reflexes normal. Patient Orientation: Person, Place, Time and Situation, okay hygiene and grooming. Fair eye contact, attentive, no tics or tremors. Level of Consciousness: Awake, Appropriate and Alert Patient Behavior: Appropriate, Guarded, Cooperative and Anxious Mood Description: Constricted, Blunted and Apprehensive Affect Description: Constricted, Blunted and Apprehensive Patient Cognition Impaired: No Ability to Follow Directions: Excellent Speech Pattern: Clear, Appropriate and Spontaneous Speech, nonpressured, spontaneous with regular rate and rhythm, normal volume and prosody. No dysarthria. Memory Description: Intact, Immediate Intact and Short Term Intact Hallucinations: None Delusions: Not Present Thought Process: Intact Thought Content: positive for Intact, positive for Logical, denies Homicidal Ideation, suicidal ideation with plan of hanging himself Depressive Symptoms: Not present. Judgement and Insight: Limited but adequate. Course Reevaluation(s) Reevaluation #1: Patient became agitated and anxious trying to elope and break the door, patient was redirectable needed Haldol/Ativan to come down, patient now is calm and cooperative. Medically clear from chest pain awaiting for care team to re-evaluate. Time: 01:26 Medications Administered Discontinued Medications Generic Name Dose Route Start Last Admin Trade Name Freq PRN Reason Stop Dose Admin Diphenhydramine HCl 50 mg 09/07/23 00:25 09/07/23 00:32 Diphenhydramine Hcl 50 Mg/Ml Vial IM 09/07/23 00:26 Not Given ONCE ONE Haloperidol Lactate 5 mg 09/07/23 00:25 09/07/23 00:31 Haloperidol Lactate 5 Mg/Ml Vial IM 09/07/23 00:26 5 mg ONCE ONE Administration Lorazepam 2 mg 09/07/23 00:25 09/07/23 00:31 Lorazepam 2 Mg/Ml Vial IM 09/07/23 00:26 2 mg ONCE ONE Administration Medical Decision Making Differential Diagnosis Differential Diagnoses: The differential diagnosis associated with the presentation includes (Depression, anxiety, substance abuse, electrolyte abnormality, pulmonary embolism, ACS, severe anemia, pneumonia, pneumothorax.) Admission/Observation Consideration of admission/observation: Escalation of care including admission/observation considered Lab Data MDM Lab Attestation statement: I reviewed the patient's lab results. 09/07/23 00:12 09/07/23 00:12 Labs: Lab Results 09/07/23 Range/Units 00:12 WBC 5.1 (4.8-10.8) X10*3/uL RBC 4.44 L (4.60-5.80) X10*6/uL Hgb 12.6 L (14.0-18.0) g/dl Hct 37.8 L (42.0-52.0) % MCV 85.1 (80.0-98.0) fL MCH 28.4 (27.0-33.0) pg MCHC 33.3 (31.0-36.0) g/dl RDW 14.8 (11.0-16.0) % Plt Count 299 (160-400) X10*3/uL MPV 9.1 L (9.4-12.4) fL Immature Gran % (Auto) 0.4 (0.0-0.4) % Neut % (Auto) 56.4 (45-73) % Lymph % (Auto) 31.4 (20-40) % Hitchcock % (Auto) 7.3 (2-11) % Eos % (Auto) 3.5 (0-4) % Baso % (Auto) 1.0 (0-2) % Lymph # (Auto) 1.6 (1.2-4.9) X10*3/uL [place]cock # (Auto) 0.4 (0.1-1.2) X10*3/uL Eos # (Auto) 0.2 (0.0-0.4) X10*3/uL Baso # (Auto) 0.1 (0.0-0.2) X10*3/uL Abs Immat Gran (auto) 0.02 (0.00-0.03) X10*3/uL Absolute Neuts (auto) 2.9 (2.0-8.3) x10*3/uL Absolute Nucleated RBC 0.000 (0.0-0.012) X10*3/uL Nucleated RBC % (auto) 0.0 (0.0-0.2) /100WBC D-Dimer High Sensitivty < 150 NG/ML Sodium 143 (135-145) mmol/L Potassium 4.1 (3.3-5.1) mmol/L Chloride 105 (96-108) mmol/L Carbon Dioxide 29 (22-29) mmol/L Anion Gap 13 (12-20) BUN 12 (9-16) mg/dL Creatinine 1.11 (0.5-1.4) mg/dL Estim Creat Clear Calc 103.0 Estimated GFR > 60 Random Glucose 123 H (60-115) mg/dL Calcium 9.4 (8.4-10.2) mg/dL Total Bilirubin 0.2 (0.0-1.0) mg/dL Direct Bilirubin < 0.2 (0.0-0.5) mg/dL AST 61 H (5-37) U/L ALT 114 H (0-40) U/L Alkaline Phosphatase 82 (39-117) U/L Troponin I High Sens < 2.7 (<3.5-35.0) ng/L Total Protein 7.2 (6.5-8.0) g/dL Albumin 4.1 (3.5-5.0) g/dL Lipase 11 (8-78) U/L Urine Color Dark Yellow Urine Appearance Clear Urine pH 7.5 (5.0-9.0) Ur Specific [place] >= 1.030 H (1.005-1.025) Urine Protein Trace (Neg-Trace) mg/dL Urine Glucose (UA) Negative (Negative) mg/dL Urine Ketones Trace (Negative) mg/dL Urine Blood Negative (Negative) Urine Nitrite Negative (Negative) Ur Leukocyte Esterase Negative (Negative) Independent Interpretation I performed an independent interpretation of an: EKG (Normal sinus rhythm at 69 beats per minutes, normal intervals, ST-T changes, no significant change from previous EKG.) and Plain X-Ray (Chest: No acute intrathoracic pathology.) Radiology Impression Discussion of test interpretation with radiology: I have reviewed the radiologist's reading. Discharge Plan Discharge Clinical Impression: Depression, Acute anxiety, Chest pain Patient Disposition: Still a Patient Prescriptions: No Action buprenorphine-naloxone [Suboxone] 8-2 mg film 20 mg sublingual BID nicotine 21 mg/24 hr Patch 24 Hour 21 mg transdermal DAILY PRN (Reason: smoking cessation) 28 Days Qty: 28 1RF bupropion HCl 300 mg Tablet Extended Release 24 Hr 300 mg PO DAILY 30 Days Qty: 30 1RF dextroamphetamine-amphetamine 30 mg capsule,extended release 24hr 30 mg PO DAILY 30 Days Qty: 30 0RF Rx Instructions: Partial Fill upon patient request. fluoxetine 20 mg Capsule 20 mg PO DAILY 30 Days Qty: 30 1RF clonidine HCl 0.1 mg tablet 0.1 mg PO TID PRN (Reason: anxiety) 30 Days Qty: 60 1RF hydroxyzine pamoate 50 mg Capsule 50 mg PO TID PRN (Reason: Anxiety) 30 Days Qty: 60 1RF nicotine (polacrilex) 4 mg Lozenge 4 mg BUCCAL Q2-4H PRN (Reason: nicotine craving ) 30 Days Qty: 108 1RF Interventions: [place]-Suicide Risk Severity Scale Last Done: 09/06/23 23:25
[2023-09-07 01:37] LABS: Amphetamine Screen Urine Not Detected (Not Detect); Barbiturates, Urine Not Detected (Not Detect); Benzodiazepines Screen Urine Not Detected (Not Detect); Cannabinoid Screen Urine POSITIVE (Not Detect); Cocaine Screen Urine POSITIVE (Not Detect); Fentanyl, urine POSITIVE (Not Detect); Opiate Screen Urine Not Detected (Not Detect); Phencyclidine Screen Urine Not Detected (Not Detect)
--- NOTE | 2023-09-07 04:28 | PC.NURSE ---
Pt remains lying on stretcher, eyes closed, respirations even and unlabored, no acute medical or behavioral issues at this time. Continuing plan of care.
[2023-09-07 06:00] VITALS: RESP 18
--- NOTE | 2023-09-07 11:44 | PHA.MEDREC ---
Pharmacy Consult ? Medication Reconciliation Pharmacy has completed the medication reconciliation. Spoke to patient and pharmacy to confirm patient meds. Patient reports getting Sublocade 300mg QMONTH injections at [facility], with last dose on 08/05/23. Called [facility] but every line goes to voicemail and cannot reach someone for dose confirmation. However, patient is great historian on medications otherwise. Leaving Sublocade confirmed as patient able to name dose, frequency, and last dose.
--- NOTE | 2023-09-07 12:33 | PC.NURSE ---
MED REC DONE BY PHARMACY. HOME MEDS ORDERED. PT SLEEPING AT THIS TIME.
[2023-09-07] MEDS: Omeprazole 20 MG CAPSULE.DR PO (13:29)
[2023-09-07] MEDS: buPROPion HCl XL 300 MG TAB.ER.24H PO (13:29)
[2023-09-07] MEDS: FLUoxetine HCl 20 MG CAPSULE PO (13:29)
[2023-09-07] MEDS: Dextroamphetamine/Amphetamine XR 10 MG CAP.ER.24H 30 MG PO (13:30)
[2023-09-07 19:44] VITALS: BP 114/78; PULSE 70; RESP 18; TEMP 36.6; O2SAT 96
--- NOTE | 2023-09-08 06:44 | PC.NURSE ---
PT alert and oriented resting quietly in bed in no acute distress. respirations even and unlabored. PT denies si/hi at this time. Plan of care ongoing.
[2023-09-08] MEDS: Omeprazole 20 MG CAPSULE.DR PO (06:45)
[2023-09-08 06:48] VITALS: BP 106/67; PULSE 75; RESP 16; TEMP 36.8; O2SAT 97
[2023-09-08] MEDS: Dextroamphetamine/Amphetamine XR 10 MG CAP.ER.24H 30 MG PO (10:52)
[2023-09-08] MEDS: FLUoxetine HCl 20 MG CAPSULE PO (10:52)
[2023-09-08] MEDS: buPROPion HCl XL 300 MG TAB.ER.24H PO (10:52)
--- NOTE | 2023-09-08 11:20 | MHC.CARE ---
RAD team conducted a statewide bedsearch, unfortunately no beds are available statewide. RAD Team will continue bedsearch tomorrow (09/09) if deemed necessary
--- NOTE | 2023-09-08 19:24 | PC.NURSE ---
patient appears to remain at rest at present respirations are even and unlabored patient appears in no distress.
[2023-09-08 21:05] VITALS: BP 114/75; PULSE 65; RESP 17; O2SAT 97
--- NOTE | 2023-09-08 21:30 | PC.NURSE ---
pt moved from 5 to ED bed 15. pt comfortable on stretcher ambulates to and from bathroom with a steady gait in no apparent distress. 1:1 sitter at bedside. plan of care ongoing
--- NOTE | 2023-09-09 04:24 | PC.NURSE ---
Addendum entered by Gabriela Dooley 09/09/23 04:27: 1:1 sitter at bedside. Original Note: Pt appears to be sleeping at this time, no apparent distress, equal, non labored respirations.
[2023-09-09 05:35] VITALS: BP 111/71; PULSE 58; RESP 15; O2SAT 97
[2023-09-09] MEDS: Omeprazole 20 MG CAPSULE.DR PO (06:23)
[2023-09-09] MEDS: Dextroamphetamine/Amphetamine XR 10 MG CAP.ER.24H 30 MG PO (08:40)
[2023-09-09] MEDS: buPROPion HCl XL 300 MG TAB.ER.24H PO (08:40)
[2023-09-09 08:50] LABS: COVID-19 Test Negative (Negative); IDNOW Serial# 58CA691E
[2023-09-09] MEDS: FLUoxetine HCl 20 MG CAPSULE PO (09:04)
--- NOTE | 2023-09-09 14:25 | MHC.CARE ---
Patient remains an inpt LOC bed search at this time. Endorses SI, hopelessness.
--- NOTE | 2023-09-09 19:24 | PC.NURSE ---
Assumed care of pt. Pt lying ons gtretcher, no acute distress, calm and cooperative, answering questions appropriately. No acute medical or behavioral concerns at this time, continuing plan of care.
[2023-09-10 00:32] VITALS: BP 123/76; PULSE 64; RESP 12; O2SAT 96
--- NOTE | 2023-09-10 03:45 | PC.NURSE ---
Pt remains lying on stretcher, eyes closed, respirations even and unlabored, no acute medical or behavioral concerns at this time. Safety observer sitting 1:1 per protocols.
[2023-09-10] MEDS: Omeprazole 20 MG CAPSULE.DR PO (05:39)
[2023-09-10 08:05] VITALS: TEMP 36.8
--- NOTE | 2023-09-10 08:07 | PC.NURSE ---
assumed care of pt at 0700. report taken from VANESSA Lacy. pt a&o x4, calm, and cooperative. denies SI gianna to t/w. 1:1 sitter at bedside. pt consumed breakfast, currently resting quietly on stretcher in no apparent distress. rr even/unlabored. call oliveira within pt reach. pt offers no complaints at this time. report given to S3 psych nurse. awaiting pt transport to unit.
[2023-09-10] MEDS: Dextroamphetamine/Amphetamine XR 10 MG CAP.ER.24H 30 MG PO (08:39)
[2023-09-10] MEDS: buPROPion HCl XL 300 MG TAB.ER.24H PO (08:39)
[2023-09-10] MEDS: FLUoxetine HCl 20 MG CAPSULE PO (08:39)
[2023-09-10 08:41] VITALS: BP 165/92; PULSE 72; RESP 16; O2SAT 97
--- NOTE | 2023-09-10 09:06 | PC.NURSE ---
pt medicated per mar and vitals updated. pt brought up to floor.
[2023-09-10 09:30] VITALS: BP 141/94; PULSE 84; RESP 18; TEMP 36.2; O2SAT 98
--- NOTE | 2023-09-10 09:46 | PC.ADMIT ---
Lonny is a 32 yo male who was [place] [facility] [place] after he presented to the [facility] after he reported SI with a plan to hang himself. At time of admission to Lonny is alert and oriented to person place time and event and denies current SI, HI, or AVH. He complains of mild anxiety related to being in a new environment and complains of some mild depression. States that he is feeling better since coming to the hospital and being in the ED. Lonny denies any physical complaints, skin check completed, phone list completed, introduced to the unit staff, and oriented to the unit.
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
[2023-09-10 18:00] VITALS: BP 119/78; PULSE 89; TEMP 36.6; O2SAT 97
[2023-09-11] MEDS: Omeprazole 20 MG CAPSULE.DR PO (06:43)
[2023-09-11] MEDS: Dextroamphetamine/Amphetamine XR 10 MG CAP.ER.24H 30 MG PO (07:59)
[2023-09-11] MEDS: buPROPion HCl XL 300 MG TAB.ER.24H PO (07:59)
[2023-09-11 08:05] VITALS: BP 119/70; PULSE 76; RESP 16; TEMP 36.2; O2SAT 96
[2023-09-11 08:15] VITALS: BMI 19.5
--- NOTE | 2023-09-11 15:26 | HO.PSYCHPN ---
Subjective Subjective Date of Service: 09/11/23 Reason For Visit: depression/ SI Interim History: pt reflects that his mood has been worse these past 6 months of sobriety, which he attributes to all these memories flooding back in. discuss his trauma Hx, proper therapies. per staff, c/o mild anxiety and depression. feeling better since arrival. visible, social. Mental Status Exam Mental Status Exam Narrative: thin, calm, cooperative, engaged. adequately dressed and groomed in street clothes. no PMA/PMR. speech incr amount, nml rate, loudness, tone, latency. thoughts linear and logical. affect full range, normo-intense, non-labile. mood anxious. no SI/HI/AVH expressed. Diagnostics Vital Signs (24Hr): Vital Signs - 24 hr 09/10/23 18:00 09/11/23 08:05 Temperature 97.8 F 97.2 F Pulse Rate 89 76 Respiratory Rate 16 Blood Pressure 119/78 119/70 Pulse Oximetry 97 96 Oxygen Delivery Method Room Air BMI result Body Mass Index 19.5 Labs 09/07/23 00:12 09/07/23 00:12 Imaging Radiology Impressions: ITS Impressions Chest X-Ray 09/06/23 23:55 IMPRESSION: Unremarkable examination. Medications Medications Current Medications Acetaminophen (Acetaminophen 325 Mg Tablet) 650 mg PO Q6H PRN PRN Reason: Headache/Pain Mild Scale (1-3) Al Hydroxide/Mg Hydroxide (Magnesium Hydrox/Alum Hydrox 30 Ml Oral.Susp) 30 ml PO Q6H PRN PRN Reason: Heartburn/Nausea Amphetamine/Dextroamphetamine (Dextroamphetamine/Amphetamine Xr 10 Mg Cap.Er.24h) 30 mg PO DAILY [facility] Last Admin: 09/11/23 07:59 Dose: 30 mg Bupropion HCl (Bupropion Hcl Xl 300 Mg Tab.Er.24h) 300 mg PO DAILY [facility] Last Admin: 09/11/23 07:59 Dose: 300 mg Clonidine HCl (Clonidine Hcl 0.1 Mg Tablet) 0.1 mg PO TID PRN; Protocol PRN Reason: anxiety Fluoxetine HCl (Fluoxetine Hcl 10 Mg Capsule) 30 mg PO DAILY [facility] Last Admin: 09/11/23 07:58 Dose: 30 mg Hydroxyzine HCl (Hydroxyzine Hcl 50 Mg Tablet) 50 mg PO TID PRN PRN Reason: Anxiety Hydroxyzine HCl (Hydroxyzine Hcl 25 Mg Tablet) 25 mg PO Q6H PRN PRN Reason: Anxiety Magnesium Hydroxide (Milk Of Magnesia 30 Ml Oral.Susp) 30 ml PO DAILY PRN PRN Reason: Constipation Nicotine (Nicotine 21 Mg Patch.Td24) 21 mg TRANSDERMA DAILY PRN PRN Reason: smoking cessation Nicotine Polacrilex (Nicotine Polacrilex 2 Mg Gum) 4 mg BUCCAL Q2H PRN PRN Reason: Nicotine Cravings Omeprazole (Omeprazole 20 Mg Capsule.Dr) 20 mg PO DAILY@0630 [facility] Last Admin: 09/11/23 06:43 Dose: 20 mg Trazodone HCl (Trazodone Hcl 50 Mg Tablet) 50 mg PO BEDTIME PRN PRN Reason: Insomnia Allergies Allergies Allergy/AdvReac Type Severity Reaction Status Date / Time No Known Allergies Allergy Verified 07/02/23 16:55 Assessment & Plan Assessment & Plan (1) MDD (major depressive disorder), recurrent severe, without psychosis: Status: Acute Code(s): F33.2 - Major depressive disorder, recurrent severe without psychotic features (2) PTSD (post-traumatic stress disorder): Status: Acute Code(s): F43.10 - Post-traumatic stress disorder, unspecified (3) Opioid use disorder: Status: Acute Code(s): F11.90 - Opioid use, unspecified, uncomplicated Plan 09/10: restart prior outpt regimen, restabilize. refer for outpt providers. 09/11: reflecting on trauma Hx and connection to drug use and current psych Sx. educated re EBP for PTSD. continue current mgmt. Reason for continued inpatient stay Substantial Risk for: inability to function and rapid decompensation Time Spent With Patient Time: Total time managing care of this patient today __25__ minutes.
[2023-09-11 20:10] VITALS: BP 127/81; PULSE 78; RESP 18; TEMP 37; O2SAT 98
[2023-09-12] MEDS: Omeprazole 20 MG CAPSULE.DR PO (06:36)
[2023-09-12] MEDS: Dextroamphetamine/Amphetamine XR 10 MG CAP.ER.24H 30 MG PO (08:27)
[2023-09-12] MEDS: buPROPion HCl XL 300 MG TAB.ER.24H PO (08:27)
[2023-09-12 08:44] VITALS: BP 127/84; PULSE 79; RESP 20; TEMP 36.8; O2SAT 98
--- NOTE | 2023-09-12 16:05 | HO.PSYCHPN ---
Subjective Subjective Date of Service: 09/12/23 Reason For Visit: depression/ SI Interim History: reporting crazy dreams, disrupted sleep, awakening in an agitated state. agreeable to start prazosin at HS. per staff, visible, social. dep 3. little anxiety. meals and meds. planning for friday. Mental Status Exam Mental Status Exam Narrative: thin, calm, cooperative, engaged. adequately dressed and groomed in street clothes. no PMA/PMR. speech incr amount, nml rate, loudness, tone, latency. thoughts linear and logical. affect full range, normo-intense, non-labile. mood good. no SI/HI/AVH expressed. Diagnostics Vital Signs (24Hr): Vital Signs - 24 hr 09/11/23 20:10 09/12/23 08:44 Temperature 98.6 F 98.2 F Pulse Rate 78 79 Respiratory Rate 18 20 Blood Pressure 127/81 127/84 Pulse Oximetry 98 98 Oxygen Delivery Method Room Air Room Air BMI result Body Mass Index 19.5 Labs 09/07/23 00:12 09/07/23 00:12 Imaging Radiology Impressions: ITS Impressions Chest X-Ray 09/06/23 23:55 IMPRESSION: Unremarkable examination. Medications Medications Current Medications Acetaminophen (Acetaminophen 325 Mg Tablet) 650 mg PO Q6H PRN PRN Reason: Headache/Pain Mild Scale (1-3) Al Hydroxide/Mg Hydroxide (Magnesium Hydrox/Alum Hydrox 30 Ml Oral.Susp) 30 ml PO Q6H PRN PRN Reason: Heartburn/Nausea Amphetamine/Dextroamphetamine (Dextroamphetamine/Amphetamine Xr 10 Mg Cap.Er.24h) 30 mg PO DAILY [facility] Last Admin: 09/12/23 08:27 Dose: 30 mg Bupropion HCl (Bupropion Hcl Xl 300 Mg Tab.Er.24h) 300 mg PO DAILY [facility] Last Admin: 09/12/23 08:27 Dose: 300 mg Clonidine HCl (Clonidine Hcl 0.1 Mg Tablet) 0.1 mg PO TID PRN; Protocol PRN Reason: anxiety Fluoxetine HCl (Fluoxetine Hcl 10 Mg Capsule) 30 mg PO DAILY [facility] Last Admin: 09/12/23 08:27 Dose: 30 mg Hydroxyzine HCl (Hydroxyzine Hcl 50 Mg Tablet) 50 mg PO TID PRN PRN Reason: Anxiety Hydroxyzine HCl (Hydroxyzine Hcl 25 Mg Tablet) 25 mg PO Q6H PRN PRN Reason: Anxiety Magnesium Hydroxide (Milk Of Magnesia 30 Ml Oral.Susp) 30 ml PO DAILY PRN PRN Reason: Constipation Nicotine (Nicotine 21 Mg Patch.Td24) 21 mg TRANSDERMA DAILY PRN PRN Reason: smoking cessation Nicotine Polacrilex (Nicotine Polacrilex 2 Mg Gum) 4 mg BUCCAL Q2H PRN PRN Reason: Nicotine Cravings Omeprazole (Omeprazole 20 Mg Capsule.Dr) 20 mg PO DAILY@0630 [facility] Last Admin: 09/12/23 06:36 Dose: 20 mg Prazosin HCl (Prazosin Hcl 1 Mg Capsule) 1 mg PO BEDTIME [facility]; Protocol Trazodone HCl (Trazodone Hcl 50 Mg Tablet) 50 mg PO BEDTIME PRN PRN Reason: Insomnia Allergies Allergies Allergy/AdvReac Type Severity Reaction Status Date / Time No Known Allergies Allergy Verified 07/02/23 16:55 Assessment & Plan Assessment & Plan (1) MDD (major depressive disorder), recurrent severe, without psychosis: Status: Acute Code(s): F33.2 - Major depressive disorder, recurrent severe without psychotic features (2) PTSD (post-traumatic stress disorder): Status: Acute Code(s): F43.10 - Post-traumatic stress disorder, unspecified (3) Opioid use disorder: Status: Acute Code(s): F11.90 - Opioid use, unspecified, uncomplicated Plan 09/10: restart prior outpt regimen, restabilize. refer for outpt providers. 09/11: reflecting on trauma Hx and connection to drug use and current psych Sx. educated re EBP for PTSD. continue current mgmt. 09/12: start prazosin 1 mg at HS, titrate up for insomnia/agitated disturbed sleep. continue current mgmt otherwise. Reason for continued inpatient stay Substantial Risk for: inability to function and rapid decompensation Time Spent With Patient Time: Total time managing care of this patient today __25__ minutes.
[2023-09-12 22:58] VITALS: BP 135/81; PULSE 94; RESP 18; TEMP 36.2; O2SAT 97
[2023-09-13 06:00] VITALS: BP 115/72; PULSE 83; TEMP 36.6; O2SAT 98
--- NOTE | 2023-09-13 12:30 | HO.PSYCHPN ---
Subjective Subjective Date of Service: 09/13/23 Reason For Visit: depression/ SI Medical Problems Affecting Mental Status: No Interim History: met with patient. Discussed with Nursing. Chart reviewed. Overall has been doing well. Reports mood has significantly improved. Not suicidal. Still has intermittent nightmares. Reports wanting follow-up care in therapy. Doing well on sublocade. Prazosin started but nightmare still evident and will increase dose. Feeling supported in the hospital and also from a community setting and has the availability of staying either [place] or [place]. Medication Compliance: Yes Side effects from medications: No Attending Groups: Yes Review of Systems Acute medical concerns: No Review of Systems Review of Systems Unremarkable Mental Status Exam Mental Status Exam Narrative: pleasant. Engaged. Casually dressed and presented. Organized. Euthymic. No SI. No HI. Agitation. No psychosis. Insight and judgment good Diagnostics Vital Signs (24Hr): Vital Signs - 24 hr 09/12/23 22:58 09/13/23 06:00 Temperature 97.2 F 97.9 F Pulse Rate 94 83 Respiratory Rate 18 Blood Pressure 135/81 115/72 Pulse Oximetry 97 98 Oxygen Delivery Method Room Air Room Air BMI result Body Mass Index 19.5 Labs 09/07/23 00:12 09/07/23 00:12 Imaging Radiology Impressions: ITS Impressions Chest X-Ray 09/06/23 23:55 IMPRESSION: Unremarkable examination. Medications Medications Current Medications Acetaminophen (Acetaminophen 325 Mg Tablet) 650 mg PO Q6H PRN PRN Reason: Headache/Pain Mild Scale (1-3) Al Hydroxide/Mg Hydroxide (Magnesium Hydrox/Alum Hydrox 30 Ml Oral.Susp) 30 ml PO Q6H PRN PRN Reason: Heartburn/Nausea Amphetamine/Dextroamphetamine (Dextroamphetamine/Amphetamine Xr 10 Mg Cap.Er.24h) 30 mg PO DAILY [facility] Last Admin: 09/13/23 09:08 Dose: 30 mg Bupropion HCl (Bupropion Hcl Xl 300 Mg Tab.Er.24h) 300 mg PO DAILY [facility] Last Admin: 09/13/23 09:09 Dose: 300 mg Clonidine HCl (Clonidine Hcl 0.1 Mg Tablet) 0.1 mg PO TID PRN; Protocol PRN Reason: anxiety Fluoxetine HCl (Fluoxetine Hcl 10 Mg Capsule) 30 mg PO DAILY [facility] Last Admin: 09/13/23 09:08 Dose: 30 mg Hydroxyzine HCl (Hydroxyzine Hcl 50 Mg Tablet) 50 mg PO TID PRN PRN Reason: Anxiety Hydroxyzine HCl (Hydroxyzine Hcl 25 Mg Tablet) 25 mg PO Q6H PRN PRN Reason: Anxiety Magnesium Hydroxide (Milk Of Magnesia 30 Ml Oral.Susp) 30 ml PO DAILY PRN PRN Reason: Constipation Nicotine (Nicotine 21 Mg Patch.Td24) 21 mg TRANSDERMA DAILY PRN PRN Reason: smoking cessation Nicotine Polacrilex (Nicotine Polacrilex 2 Mg Gum) 4 mg BUCCAL Q2H PRN PRN Reason: Nicotine Cravings Omeprazole (Omeprazole 20 Mg Capsule.Dr) 20 mg PO DAILY@0630 [facility] Last Admin: 09/13/23 09:09 Dose: 20 mg Prazosin HCl (Prazosin Hcl 1 Mg Capsule) 1 mg PO BEDTIME [facility]; Protocol Last Admin: 09/12/23 23:04 Dose: 1 mg Trazodone HCl (Trazodone Hcl 50 Mg Tablet) 50 mg PO BEDTIME PRN PRN Reason: Insomnia Allergies Allergies Allergy/AdvReac Type Severity Reaction Status Date / Time No Known Allergies Allergy Verified 07/02/23 16:55 Assessment & Plan Assessment & Plan (1) MDD (major depressive disorder), recurrent severe, without psychosis: Status: Acute Code(s): F33.2 - Major depressive disorder, recurrent severe without psychotic features (2) PTSD (post-traumatic stress disorder): Status: Acute Code(s): F43.10 - Post-traumatic stress disorder, unspecified (3) Opioid use disorder: Status: Acute Code(s): F11.90 - Opioid use, unspecified, uncomplicated Plan 09/10: restart prior outpt regimen, restabilize. refer for outpt providers. 09/11: reflecting on trauma Hx and connection to drug use and current psych Sx. educated re EBP for PTSD. continue current mgmt. 09/12: start prazosin 1 mg at HS, titrate up for insomnia/agitated disturbed sleep. continue current mgmt otherwise. 09/13/2023: Increase prazosin to 2 mg Reason for continued inpatient stay Substantial Risk for: rapid decompensation Time Spent With Patient Time: Total time managing care of this patient today ____ minutes.
[2023-09-13 18:58] VITALS: BP 123/83; PULSE 100; RESP 18; TEMP 36.6; O2SAT 97
[2023-09-13 21:47] VITALS: BP 134/86; PULSE 88; TEMP 36.9; O2SAT 99
[2023-09-14 06:00] VITALS: BP 115/62; PULSE 75; RESP 16; TEMP 36.6; O2SAT 96
--- NOTE | 2023-09-14 11:30 | HO.PSYCHPN ---
Subjective Subjective Date of Service: 09/14/23 Reason For Visit: depression/ SI Medical Problems Affecting Mental Status: No Interim History: met with patient. Discussed with Nursing. Chart reviewed. Overall has been doing well. main issue are nightmares. Tolerated prazosin 2 mg last night. Is not on a nicotine patch. Otherwise, mood has significantly improved. Not suicidal. interacting well with peers. Enjoying football. Reports wanting follow-up care in therapy. Feeling supported in the hospital Medication Compliance: Yes Side effects from medications: No Attending Groups: Yes Review of Systems Acute medical concerns: No Review of Systems Review of Systems Unremarkable Mental Status Exam Mental Status Exam Narrative: pleasant. Engaged. Casually dressed and presented. Organized. Euthymic. No SI. No HI. Agitation. No psychosis. Insight and judgment good Diagnostics Vital Signs (24Hr): Vital Signs - 24 hr 09/13/23 18:58 09/13/23 21:47 09/14/23 06:00 Temperature 97.9 F 98.5 F 97.9 F Pulse Rate 100 88 75 Respiratory Rate 18 16 Blood Pressure 123/83 134/86 115/62 Pulse Oximetry 97 99 96 Oxygen Delivery Method Room Air Room Air Room Air BMI result Body Mass Index 19.5 Labs 09/07/23 00:12 09/07/23 00:12 Imaging Radiology Impressions: ITS Impressions Chest X-Ray 09/06/23 23:55 IMPRESSION: Unremarkable examination. Medications Medications Current Medications Acetaminophen (Acetaminophen 325 Mg Tablet) 650 mg PO Q6H PRN PRN Reason: Headache/Pain Mild Scale (1-3) Last Admin: 09/13/23 18:57 Dose: 650 mg Al Hydroxide/Mg Hydroxide (Magnesium Hydrox/Alum Hydrox 30 Ml Oral.Susp) 30 ml PO Q6H PRN PRN Reason: Heartburn/Nausea Amphetamine/Dextroamphetamine (Dextroamphetamine/Amphetamine Xr 10 Mg Cap.Er.24h) 30 mg PO DAILY [facility] Last Admin: 09/14/23 09:28 Dose: 30 mg Bupropion HCl (Bupropion Hcl Xl 300 Mg Tab.Er.24h) 300 mg PO DAILY [facility] Last Admin: 09/14/23 09:28 Dose: 300 mg Clonidine HCl (Clonidine Hcl 0.1 Mg Tablet) 0.1 mg PO TID PRN; Protocol PRN Reason: anxiety Fluoxetine HCl (Fluoxetine Hcl 10 Mg Capsule) 30 mg PO DAILY [facility] Last Admin: 09/14/23 09:28 Dose: 30 mg Hydroxyzine HCl (Hydroxyzine Hcl 50 Mg Tablet) 50 mg PO TID PRN PRN Reason: Anxiety Hydroxyzine HCl (Hydroxyzine Hcl 25 Mg Tablet) 25 mg PO Q6H PRN PRN Reason: Anxiety Ibuprofen (Ibuprofen 600 Mg Tablet) 600 mg PO Q6H PRN PRN Reason: tooth pain Last Admin: 09/13/23 21:50 Dose: 600 mg Magnesium Hydroxide (Milk Of Magnesia 30 Ml Oral.Susp) 30 ml PO DAILY PRN PRN Reason: Constipation Nicotine (Nicotine 21 Mg Patch.Td24) 21 mg TRANSDERMA DAILY PRN PRN Reason: smoking cessation Nicotine Polacrilex (Nicotine Polacrilex 2 Mg Gum) 4 mg BUCCAL Q2H PRN PRN Reason: Nicotine Cravings Omeprazole (Omeprazole 20 Mg Capsule.Dr) 20 mg PO DAILY@0630 [facility] Last Admin: 09/14/23 06:59 Dose: 20 mg Prazosin HCl (Prazosin Hcl 1 Mg Capsule) 2 mg PO BEDTIME [facility]; Protocol Last Admin: 09/13/23 21:50 Dose: 2 mg Trazodone HCl (Trazodone Hcl 50 Mg Tablet) 50 mg PO BEDTIME PRN PRN Reason: Insomnia Allergies Allergies Allergy/AdvReac Type Severity Reaction Status Date / Time No Known Allergies Allergy Verified 07/02/23 16:55 Assessment & Plan Assessment & Plan (1) MDD (major depressive disorder), recurrent severe, without psychosis: Status: Acute Code(s): F33.2 - Major depressive disorder, recurrent severe without psychotic features (2) PTSD (post-traumatic stress disorder): Status: Acute Code(s): F43.10 - Post-traumatic stress disorder, unspecified (3) Opioid use disorder: Status: Acute Code(s): F11.90 - Opioid use, unspecified, uncomplicated Plan 09/10: restart prior outpt regimen, restabilize. refer for outpt providers. 09/11: reflecting on trauma Hx and connection to drug use and current psych Sx. educated re EBP for PTSD. continue current mgmt. 09/12: start prazosin 1 mg at HS, titrate up for insomnia/agitated disturbed sleep. continue current mgmt otherwise. 09/13/2023: Increase prazosin to 2 mg 09/14/2023: Increase prazosin to 4 mg Reason for continued inpatient stay Substantial Risk for: rapid decompensation Time Spent With Patient Time: Total time managing care of this patient today ____ minutes.
[2023-09-14 21:20] VITALS: BP 119/75; PULSE 87; RESP 16; TEMP 37.2; O2SAT 97
[2023-09-15 07:45] VITALS: BP 104/58; PULSE 82; RESP 18; TEMP 36.8; O2SAT 97
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
[2023-09-15 22:25] VITALS: BP 140/86; PULSE 86; RESP 16; TEMP 36.6; O2SAT 98
[2023-09-15] MEDS: Prazosin HCL 1 MG CAPSULE 4 MG PO (22:28)
[2023-09-15] MEDS: Ibuprofen 600 MG TABLET PO (22:29)
[2023-09-16 07:30] VITALS: BP 113/58; PULSE 75; RESP 18; TEMP 36.6; O2SAT 96
[2023-09-16] MEDS: FLUoxetine HCl 10 MG CAPSULE 30 MG PO (08:56)
[2023-09-16] MEDS: Omeprazole 20 MG CAPSULE.DR PO (08:56)
[2023-09-16] MEDS: Dextroamphetamine/Amphetamine XR 10 MG CAP.ER.24H 30 MG PO (08:57)
[2023-09-16] MEDS: buPROPion HCl XL 300 MG TAB.ER.24H PO (08:57)
== END 2023-09-16 11:45 | disposition home or self-care (01) | DRG 751 ==
LOC: HO.ED 09-08 20:05 → HO.PADLT16 09-10 08:35
PROVIDERS: Admitting Provider Psychiatry & Neurology Psychiatry; Emergency Provider Emergency Medicine; Visit Provider Psychiatry & Neurology Psychiatry
DX: F33.1 Major depressive disorder, recurrent, moderate (principal); R45.851 Suicidal ideations; F43.12 Post-traumatic stress disorder, chronic; F11.20 Opioid dependence, uncomplicated; F17.210 Nicotine dependence, cigarettes, uncomplicated; Z71.6 Tobacco abuse counseling; Z20.822 Contact with and (suspected) exposure to COVID-19; Z79.899 Other long term (current) drug therapy
CPT/HCPCS: 36415; 71045; 80048; 80076; 80307; 81003; 83690; 84484; 85025; 85379; 87635; 93005; 99285; J1630; J2060; S9485

== ENCOUNTER → 2023-09-06 22:58 | Outpatient (BNV) | payer OTHER, SELFPAY | PROVIDERS: Emergency Provider Emergency Medicine; Visit Provider Internal Medicine | DX: R07.89 Other chest pain (principal) | CPT/HCPCS: 93010 ==

== ENCOUNTER → 2023-09-10 08:30 | Outpatient (BNV) | payer OTHER, SELFPAY | PROVIDERS: Admitting Provider Psychiatry & Neurology Psychiatry; Emergency Provider Emergency Medicine; Visit Provider Psychiatry & Neurology Psychiatry | DX: F33.2 Major depressive disorder, recurrent severe without psychotic features (principal); F43.11 Post-traumatic stress disorder, acute; F11.90 Opioid use, unspecified, uncomplicated | CPT/HCPCS: 99203; 99231; 99232 ==

== ENCOUNTER 2023-09-19 22:00 | Inpatient (IN) | payer OTHER, SELFPAY ==
[2023-09-19 22:15] VITALS: BP 111/69; PULSE 72; TEMP 36.8
--- NOTE | 2023-09-20 02:31 | PC.ADMIT ---
A white, single male, Lithuanian-speaking male, aged 32 years was [facility] at 2210 as a CV following referral from [facility] ED and [facility]. Pt is known to [facility] with a recent d/c from [facility] 1 1/2 weeks ago and an admission on [facility] in past year. Pt self presented to [facility] ED on 09/19/23 with thought to hang self. Pt said had started Prazosin during last admission and found med to not be helping. Pt had reported increased depression due to nightmares and intrusive thoughts about his trauma history. Pt reported being unsure of what was a triggering event. Pt has a history of suicide attempt by hanging last May. Pt was cooperative with admission assessment. Pt reported anxiety /10, depression /10. Pt reports continued thoughts to hang self, but says can seek out help from staff and says can be safe on unit. Pt reported HI toward an individual named Crow that he encountered in a [facility] facility, saying the individual freaked me out . Pt denies pain and says has no acute medical issues at this time. Pt has a history of endocarditis. Pt reports he does not have any providers at this time. Pt reports he gets most of his medications at [facility] pharmacy, which is closed at this time. Pt says gets his clonidine at [facility] in [place]. Pt denies Etoh or substance use. Utox positive for amphetamines (ordered) and buprenorphine. BAL was >3. Pt reports gets Sublocade 300mg IM, Q month with last dose on 08/05/23. Pt reports taking medications as ordered with last doses on 09/18/23. [id number] done, admission orders obtained, skin check done, initial treatment plan done, but needs to be signed. Pt needs to be seen by hospitalist b/c from [facility] and pt needs to do safety tool. Pt is resting in room on 15 minute safety checks at this time.
[2023-09-20 02:58] VITALS: BMI 21.8
[2023-09-20 07:52] LABS: Alanine Aminotransferase 157 U/L (0-40); Albumin Level 4.1 g/dL (3.5-5.0); Alkaline Phosphatase 94 U/L (39-117); Anion Gap 12 (12-20); Aspartate Amino Transferase 58 U/L (5-37); Bilirubin Total 0.3 mg/dL (0.0-1.0); Blood Urea Nitrogen 14 mg/dL (9-16); Calcium 10.1 mg/dL (8.4-10.2); Carbon Dioxide 31 mmol/L (22-29); Chloride 104 mmol/L (96-108); Cholesterol 152 mg/dL (<200); Creatinine Clr Calc Pharmacy 129.9; Estimated Glomerular Filt Rate > 60; Glucose Fasting 87 mg/dL (60-99); HDL Cholesterol 31 mg/dL (>40); LDL Cholesterol Calculated 105 mg/dL (<100); Potassium 3.8 mmol/L (3.3-5.1); Sodium 143 mmol/L (135-145); Total Protein 7.6 g/dL (6.5-8.0); Triglycerides 84 mg/dL (<150)
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
[2023-09-20 08:13] VITALS: BP 110/56; PULSE 78; RESP 16; TEMP 36.9; O2SAT 97
[2023-09-20] MEDS: buPROPion HCl XL 300 MG TAB.ER.24H PO (09:04)
[2023-09-20] MEDS: FLUoxetine HCl 10 MG CAPSULE 30 MG PO (09:04)
[2023-09-20] MEDS: Dextroamphetamine/Amphetamine XR 10 MG CAP.ER.24H 30 MG PO (09:04)
--- NOTE | 2023-09-20 17:11 | P.CONHOSP_ITS ---
History of Present Illness Data of Consult Service Date: 09/20/23 Primary Care Provider: None Physician HPI Reason for consult: Admission H&P Pt is a 32-year-old male with a PMH significant for??ADHD and IVDU on suboxone who is admitted to [facility] psychiatry unit increasing depression with SI with plan to hang himself. Apparently has been staying at the [facility] recently. Medical consult for admission H&P. Patient denies any acute medical complaints at this time. Denies chest pain/pressure, palpitations. Shortness of breath. Denies headache, acute vision changes. No lightheadedness or dizziness. Denies fever, chills, nausea, vomiting, diarrhea. Patient has a past history of daily heroin use, though states he has not used in quite some time. No recent alcohol use. Does vape daily. Review of Systems 2 Review of Systems: Patient has no acute medical complaints at this time [facility] Medical History Opioid use disorder PTSD (post-traumatic stress disorder) MDD (major depressive disorder), recurrent severe, without psychosis Social History Household Members: Other Household Members Other:: two room mates Housing: Apartment Do you presently have visiting nurse or other home services: No Patient Tobacco Use Status: Current everyday Tobacco user Tobacco use type: Cigarette Cigarette Packs Per Day: 0.25 Cigarettes Per Day: 1 Smoked in Last 30 Days: Yes e-Cigarette/Vaping Use: Currently Using Frequency of e-Cigarette/Vaping Use: Throughout day Patient Interested in Nicotine Replacement: Yes (pt wants 21mg patch) Patient Given Instructions on How to Stop Smoking: Yes (Pt is considering quitting) Date Education Initiated: 09/19/23 Second Hand Smoke Exposure: No Use of substances other than those prescribed or required for medical reasons: No Substance Use Type: Crack/Cocaine, Marijuana and Opiates Currently Displaying Signs/Symptoms of Drug Intoxication Withdrawal: No Any prior treatment program specific to substance use: Yes Have you been hit, kicked, punched, or otherwise hurt by someone within the past year? If so, by whom?: No Do you feel safe in your current relationship?: No Current Relationship Is there a partner from a previous relationship who is making you feel unsafe now?: No Are you made to feel afraid or neglected: No Spiritual Healthcare Practices: None Gnosticist Healthcare Practices: None Cultural Healthcare Practices: None Advance Directives: No Advance Directives Information Provided: No Do you have thoughts of harming others: None Do you have a plan to hurt others: No Plan Recently lost weight without trying: Yes How much weight loss: 24-33 pounds Eating poorly because of decreased appetite: Yes Nutrition screen score: 6 Nutrition Risks: No Nutritional Risk and Dental problems Poor oral hygiene: No service: No Sexual orientation: Straight/Heterosexual Meds Allergies Allergy/AdvReac Type Severity Reaction Status Date / Time No Known Allergies Allergy Verified 07/02/23 16:55 Active Medications: Current Medications Acetaminophen (Acetaminophen 325 Mg Tablet) 650 mg PO Q6H PRN PRN Reason: Headache/Pain Mild Scale (1-3) Al Hydroxide/Mg Hydroxide (Magnesium Hydrox/Alum Hydrox 30 Ml Oral.Susp) 30 ml PO Q6H PRN PRN Reason: Heartburn/Nausea Amphetamine/Dextroamphetamine (Dextroamphetamine/Amphetamine Xr 10 Mg Cap.Er.24h) 30 mg PO DAILY ON LICENSE OF [facility] Last Admin: 09/20/23 09:04 Dose: 30 mg Bupropion HCl (Bupropion Hcl Xl 300 Mg Tab.Er.24h) 300 mg PO DAILY ON LICENSE OF [facility] Last Admin: 09/20/23 09:04 Dose: 300 mg Clonidine HCl (Clonidine Hcl 0.1 Mg Tablet) 0.1 mg PO TID PRN; Protocol PRN Reason: anxiety Fluoxetine HCl (Fluoxetine Hcl 10 Mg Capsule) 30 mg PO DAILY ON LICENSE OF [facility] Last Admin: 09/20/23 09:04 Dose: 30 mg Hydroxyzine HCl (Hydroxyzine Hcl 25 Mg Tablet) 25 mg PO Q6H PRN PRN Reason: Anxiety Magnesium Hydroxide (Milk Of Magnesia 30 Ml Oral.Susp) 30 ml PO DAILY PRN PRN Reason: Constipation Prazosin HCl (Prazosin Hcl 1 Mg Capsule) 4 mg PO BEDTIME ON LICENSE OF [facility]; Protocol Trazodone HCl (Trazodone Hcl 50 Mg Tablet) 50 mg PO BEDTIME MRX1 PRN PRN Reason: Insomnia Home Medications Medication Instructions Recorded Confirmed Last Taken Type buprenorphine 300 mg/1.5 mL 300 mg subcut QMONTH 09/07/23 09/20/23 08/05/23 History solution,exten.rel.subcutaneous syringe (Sublocade) omeprazole 20 mg capsule,delayed 20 mg PO DAILY@0630 09/07/23 09/07/23 09/06/23 History release trazodone 50 mg tablet 50 mg PO BEDTIME PRN Insomnia 09/07/23 09/07/23 Unknown History Physical Exam 2 Vital Signs and Narrative: Vital Signs: Last Vital Signs Temp 98.5 F 09/20/23 08:13 Pulse 78 09/20/23 08:13 Resp 16 09/20/23 08:13 BP 110/56 L 09/20/23 08:13 Pulse Ox 97 09/20/23 08:13 O2 Del Method Room Air 09/20/23 08:13 BMI result Body Mass Index 21.8 General: AOx3, no acute distress Resp: CTA bilaterally CVS: S1, S2, RRR GI: +BS, NT, no distention Skin: Warm, dry Neuro: Cranial nerves II-XII grossly intact bilaterally. Motor grossly intact bilaterally Extremities: No edema Psych: Flat affect Results Labs 09/20/23 07:15 Labs: Laboratory Results - last 24 hr 09/20/23 07:15 Anion Gap 12 Estim Creat Clear Calc 129.9 Estimated GFR > 60 Fasting Glucose 87 Calcium 10.1 D Total Bilirubin 0.3 AST 58 H ALT 157 H Alkaline Phosphatase 94 Total Protein 7.6 Albumin 4.1 Triglycerides 84 Cholesterol 152 LDL Cholesterol, Calc 105 H HDL Cholesterol 31 L Assessment and Plan (1) Medical clearance for psychiatric admission: Status: Acute Plan Pt is a 32-year-old male with a PMH significant for??ADHD and IVDU on suboxone who is admitted to [facility] psychiatry unit increasing depression with SI with plan to hang himself. Apparently has been staying at the [facility] recently. Medical consult for admission H&P. Patient denies any acute medical complaints at this time. Mood disorder Plan as per psychiatry Opiate use disorder Continue Sublocade Plan as per Psychiatry ADHD Continue Adderall Thank you for allowing us to participate in the care of this patient. Signing off at this time. Please re-consult if any acute complaints or issues arise.
[2023-09-20 18:00] VITALS: BP 140/77; PULSE 83; RESP 17; TEMP 36.8; O2SAT 99
[2023-09-20] MEDS: Prazosin HCL 1 MG CAPSULE 4 MG PO (21:53)
[2023-09-21 08:47] VITALS: BP 115/55; PULSE 78; RESP 16; TEMP 36.8; O2SAT 95
[2023-09-21] MEDS: Nicotine 21 MG PATCH.TD24 TRANSDERMA (09:00)
[2023-09-21] MEDS: Dextroamphetamine/Amphetamine XR 10 MG CAP.ER.24H 30 MG PO (09:01)
[2023-09-21] MEDS: FLUoxetine HCl 10 MG CAPSULE 30 MG PO (09:01)
[2023-09-21] MEDS: buPROPion HCl XL 300 MG TAB.ER.24H PO (09:01)
--- NOTE | 2023-09-21 09:15 | HO.PSYCHPN ---
Subjective Subjective Date of Service: 09/21/23 Reason For Visit: UNSPECIFIED DEPRESSIVE DISORDER Medical Problems Affecting Mental Status: No Interim History: Patient was seen and discussed in rounds today. Records and plans were reviewed. He has settled in and is doing well. He denies any side effects. He is medication and meals compliant. Sleeping adequately. No complaints or side effects. No changes were made today l Medication Compliance: Yes Side effects from medications: No Attending Groups: Yes Review of Systems Acute medical concerns: No Review of Systems Review of Systems Yes all other systems are reviewed and are negative Mental Status Exam Mental Status Exam Narrative: In today's visit is alert, oriented and pleasant and cooperative. Normal speech. Good eye contact. Affect is appropriate and constricted. No signs of psychosis. He is able to give adequate information and respond appropriately to questions. He admits to suicidal ideations and plans to hang himself but contracts for safety here. No HI. Cognitively is intact. No abnormalities of gait. No musculoskeletal difficulties. Judgment is intact Diagnostics Vital Signs (24Hr): Vital Signs - 24 hr 09/20/23 18:00 09/21/23 08:47 Temperature 98.2 F 98.2 F Pulse Rate 83 78 Respiratory Rate 17 16 Blood Pressure 140/77 H 115/55 L Pulse Oximetry 99 95 Oxygen Delivery Method Room Air Room Air BMI result Body Mass Index 21.8 Labs 09/20/23 07:15 Labs: Laboratory Results - last 48 hr 09/20/23 07:15 Sodium 143 Potassium 3.8 Chloride 104 Carbon Dioxide 31 H Anion Gap 12 BUN 14 Creatinine 0.88 Estim Creat Clear Calc 129.9 Estimated GFR > 60 Fasting Glucose 87 Calcium 10.1 D Total Bilirubin 0.3 AST 58 H ALT 157 H Alkaline Phosphatase 94 Total Protein 7.6 Albumin 4.1 Triglycerides 84 Cholesterol 152 LDL Cholesterol, Calc 105 H HDL Cholesterol 31 L Medications Medications Current Medications Acetaminophen (Acetaminophen 325 Mg Tablet) 650 mg PO Q6H PRN PRN Reason: Headache/Pain Mild Scale (1-3) Al Hydroxide/Mg Hydroxide (Magnesium Hydrox/Alum Hydrox 30 Ml Oral.Susp) 30 ml PO Q6H PRN PRN Reason: Heartburn/Nausea Amphetamine/Dextroamphetamine (Dextroamphetamine/Amphetamine Xr 10 Mg Cap.Er.24h) 30 mg PO DAILY [facility] Last Admin: 09/21/23 09:01 Dose: 30 mg Bupropion HCl (Bupropion Hcl Xl 300 Mg Tab.Er.24h) 300 mg PO DAILY [facility] Last Admin: 09/21/23 09:01 Dose: 300 mg Clonidine HCl (Clonidine Hcl 0.1 Mg Tablet) 0.1 mg PO TID PRN; Protocol PRN Reason: anxiety Fluoxetine HCl (Fluoxetine Hcl 10 Mg Capsule) 30 mg PO DAILY [facility] Last Admin: 09/21/23 09:01 Dose: 30 mg Hydroxyzine HCl (Hydroxyzine Hcl 25 Mg Tablet) 25 mg PO Q6H PRN PRN Reason: Anxiety Magnesium Hydroxide (Milk Of Magnesia 30 Ml Oral.Susp) 30 ml PO DAILY PRN PRN Reason: Constipation Nicotine (Nicotine 21 Mg Patch.Td24) 21 mg TRANSDERMA DAILY [facility] Last Admin: 09/21/23 09:00 Dose: 21 mg Prazosin HCl (Prazosin Hcl 1 Mg Capsule) 4 mg PO BEDTIME [facility]; Protocol Last Admin: 09/20/23 21:53 Dose: 4 mg Trazodone HCl (Trazodone Hcl 50 Mg Tablet) 50 mg PO BEDTIME MRX1 PRN PRN Reason: Insomnia Allergies Allergies Allergy/AdvReac Type Severity Reaction Status Date / Time No Known Allergies Allergy Verified 07/02/23 16:55 Assessment & Plan Assessment & Plan (1) Medical clearance for psychiatric admission: Status: Acute Code(s): Z00.8 - Encounter for other general examination Plan Pt is a 32-year-old male with a PMH significant for??ADHD and IVDU on suboxone who is admitted to [facility] psychiatry unit increasing depression with SI with plan to hang himself. Apparently has been staying at the [facility] recently. Medical consult for admission H&P. Patient denies any acute medical complaints at this time. Mood disorder Plan as per psychiatry Opiate use disorder Continue Sublocade Plan as per Psychiatry ADHD Continue Adderall Thank you for allowing us to participate in the care of this patient. Signing off at this time. Please re-consult if any acute complaints or issues 09/21/2023: Continue current regimen and plansarise. Reason for continued inpatient stay Substantial Risk for: rapid decompensation Time Spent With Patient Time: Total time managing care of this patient today ____ minutes.
[2023-09-21 17:08] VITALS: BP 111/64; PULSE 85; RESP 18; TEMP 36.7; O2SAT 97
[2023-09-21 20:40] VITALS: BP 144/83; PULSE 90
[2023-09-21] MEDS: Prazosin HCL 1 MG CAPSULE 4 MG PO (20:42)
[2023-09-22 08:45] VITALS: BP 106/74; PULSE 102; RESP 16; TEMP 36.8; O2SAT 96
[2023-09-22] MEDS: Nicotine 21 MG PATCH.TD24 TRANSDERMA (08:59)
[2023-09-22] MEDS: buPROPion HCl XL 300 MG TAB.ER.24H PO (09:00)
[2023-09-22] MEDS: Dextroamphetamine/Amphetamine XR 10 MG CAP.ER.24H 30 MG PO (09:00)
[2023-09-22] MEDS: FLUoxetine HCl 10 MG CAPSULE 30 MG PO (09:00)
--- NOTE | 2023-09-22 09:49 | P.PNPSI_ITS ---
Subjective Subjective Date of Service: 09/22/23 Reason For Visit: UNSPECIFIED DEPRESSIVE DISORDER Interim History: met with patient; discussed with team Patient shared again about recent history since M3 admission. He shared that while on M3, a patient was trying to get him to buy drugs after he discharged...on discharge, patient thought a car following him...next day at the [facility] where patient sometimes stays, there was a person who came up to him, talking about [place] and said something to the effect of if you want to check herself into a mental hospital... so can someone else... Since patient had recently discharged from a psychiatric hospital, he felt that this was very strange, became paranoid that this person new something about him, with suspicious, feeling threatened and had the thought to hurt him; instead, patient self presented Clerk Cashier further inquired about history of such feelings. He said sometimes in the community if he starts talking with a stranger he might wonder if the person's following him... He shared of another incident back in July, when he had a Gatorade he was drinking, left it sitting out for a a little bit, came back and then finish the drink, soon after starting to feel very anxious... He went to ED and methamphetamines found in urine. Patient suspicious about this but does not know what else to think. Patient shared about his more distant past, growing up in a very rough neighborhood, having to look over his shoulder just to make sure he was safe which was the norm for everybody he knew. Said otherwise only paranoia he can remembers when he was using cocaine. Currently patient denies feeling paranoid here on unit. been sober (got Sublicade shot Aug 05); wants to remain on it only new meds started was prazosin 4mg qhs which is helping with nightmares. Otherwise, REmains on med regimen from M3 Amphetamine/Dextroamphetamine 20 mg PO DAILY [facility] Buprenorphine/Naloxone (Buprenorphine/Naloxone 8/2 Mg Film) 1 film SUBLINGUAL BID@0900,1600 [facility] Bupropion HCl (Bupropion Hcl Xl 300 Mg Tab.Er.24h) 300 mg PO DAILY [facility] Clonidine HCl (Clonidine Hcl 0.1 Mg Tablet) 0.1 mg PO Q4H PRN; Protocol Fluoxetine HCl (Fluoxetine Hcl 20 Mg Capsule) 20 mg PO DAILY [facility] Hydroxyzine HCl (Hydroxyzine Hcl 50 Mg Tablet) 50 mg PO TID PRN Mental Status Exam Mental Status Exam Narrative: Pt is alert and oriented; behavior is cooperative, friendly and calm; patient is not in distress; dressed in casual attire with unkempt hair but adequate hygiene; mood is described as good and affect congruent; eye contact appropriate; Speech is normal rate, volume and prosody and not pressured; no psychomotor agitation/retardation present; thought process is organized and goal directed; Thought content is on some paranoid thinking; otherwise pertinent to relevant topics; denies any SI/HI. There is no evidence of perceptual disturbance. Patients insight and judgment impaired. Diagnostics Vital Signs (24Hr): Vital Signs - 24 hr 09/21/23 17:08 09/21/23 20:40 09/22/23 08:45 Temperature 98.0 F 98.2 F Pulse Rate 85 90 102 H Respiratory Rate 18 16 Blood Pressure 111/64 144/83 H 106/74 Pulse Oximetry 97 96 Oxygen Delivery Method Room Air Room Air BMI result Body Mass Index 21.8 Labs 09/20/23 07:15 Medications Medications Current Medications Acetaminophen (Acetaminophen 325 Mg Tablet) 650 mg PO Q6H PRN PRN Reason: Headache/Pain Mild Scale (1-3) Al Hydroxide/Mg Hydroxide (Magnesium Hydrox/Alum Hydrox 30 Ml Oral.Susp) 30 ml PO Q6H PRN PRN Reason: Heartburn/Nausea Amphetamine/Dextroamphetamine (Dextroamphetamine/Amphetamine Xr 10 Mg Cap.Er.24h) 30 mg PO DAILY [facility] Last Admin: 09/22/23 09:00 Dose: 30 mg Bupropion HCl (Bupropion Hcl Xl 300 Mg Tab.Er.24h) 300 mg PO DAILY [facility] Last Admin: 09/22/23 09:00 Dose: 300 mg Clonidine HCl (Clonidine Hcl 0.1 Mg Tablet) 0.1 mg PO TID PRN; Protocol PRN Reason: anxiety Fluoxetine HCl (Fluoxetine Hcl 10 Mg Capsule) 30 mg PO DAILY [facility] Last Admin: 09/22/23 09:00 Dose: 30 mg Hydroxyzine HCl (Hydroxyzine Hcl 25 Mg Tablet) 25 mg PO Q6H PRN PRN Reason: Anxiety Magnesium Hydroxide (Milk Of Magnesia 30 Ml Oral.Susp) 30 ml PO DAILY PRN PRN Reason: Constipation Nicotine (Nicotine 21 Mg Patch.Td24) 21 mg TRANSDERMA DAILY [facility] Last Admin: 09/22/23 08:59 Dose: 21 mg Prazosin HCl (Prazosin Hcl 1 Mg Capsule) 4 mg PO BEDTIME [facility]; Protocol Last Admin: 09/21/23 20:42 Dose: 4 mg Trazodone HCl (Trazodone Hcl 50 Mg Tablet) 50 mg PO BEDTIME MRX1 PRN PRN Reason: Insomnia Allergies Allergies Allergy/AdvReac Type Severity Reaction Status Date / Time No Known Allergies Allergy Verified 07/02/23 16:55 Assessment & Plan Assessment & Plan (1) Medical clearance for psychiatric admission: Status: Acute Code(s): Z00.8 - Encounter for other general examination Plan Lonny is a 32-year-old white, single, unemployed, man who lives with 2 roommates. This is his 4th psychiatric hospitalization. He was discharged about a week ago and did not have any outpatient appointment scheduled and has historically not followed up with them. She states that he continued to be quite depressed and having suicidal ideations of wanting to hang himself. He has had an episode of hanging in 2021 when others found out and intervened. He denies any major precipitance or changes triggering the current episode. He does have history of opiate abuse/ dependence, clean for 2 years and is on Sublocade 300 mg monthly, last received 08/05/2023 and states that it usually lasts more than month for him and he has not having any cravings. He has been taking his medications though intermittently. Currently he is on Wellbutrin XL 300 mg, prazosin (recently started close) 4 mg. He does not use trazodone much, Adderall 30 mg daily. He denies any side effects. The prazosin has been moderately helpful with his nightmares with improved sleep but still not optimal. Past Psychiatric History: History of psychiatric admission; 3 prior admissions SA: hanging, 2021 outpt - did not F/U with referral at discharge from 07/12. currently no prescriber. h/o PTSD Dx Medication trials: Adderall, Strattera, Effexor ( at a low dose but made him feel weird ) Hospital course: 09/22 Patient shared again about recent history since M3 admission. He shared that while on M3, a patient was trying to get him to buy drugs after he discharged...on discharge, patient thought a car following him...next day at the [facility] where patient sometimes stays, there was a person who came up to him, talking about [place] and said something to the effect of if you want to check herself into a mental hospital... so can someone else... Since patient had recently discharged from a psychiatric hospital, he felt that this was very strange, became paranoid that this person new something about him, with suspicious, feeling threatened and had the thought to hurt him; instead, patient self presented Clerk Cashier further inquired about history of such feelings. He said sometimes in the community if he starts talking with a stranger he might wonder if the person's following him... He shared of another incident back in July, when he had a Gatorade he was drinking, left it sitting out for a a little bit, came back and then finish the drink, soon after starting to feel very anxious... He went to ED and methamphetamines found in urine. Patient suspicious about this but does not know what else to think. Patient shared about his more distant past, growing up in a very rough neighborhood, having to look over his shoulder just to make sure he was safe which was the norm for everybody he knew. Said otherwise only paranoia he can remembers when he was using cocaine. Currently patient denies feeling paranoid here on unit. Impression: Patient has history of depression, PTSD. Last admission no paranoid thinking surfaced. Possible that this could be simply hypervigilance from history of trauma and living in dangerous neighborhoods. However it also surface that patient has been misleading about where he lives... Will continue to discuss PLAN: CV Q 15 minute checks Continue prazosin 4mg qhs Continue Amphetamine/Dextroamphetamine 20 mg PO DAILY [facility] Continue Sublocade Continue Bupropion XL 300 mg PO DAILY [facility] Continue Clonidine HCl 0.1 mg PO Q4H PRN; Protocol Continue Fluoxetine HCl 20 mg PO DAILY [facility] Continue Hydroxyzine HCl 50 mg PO TID PRN Patient educated on: diagnosis, medication risk/benefits, substance abuse and therapeutic strategies Informed Consent: understands and further education needed Reason for continued inpatient stay Substantial Risk for: rapid decompensation Time Spent With Patient Time: Total time managing care of this patient today ____ minutes.
--- NOTE | 2023-09-22 12:59 | MHC.CLN ---
NUTRITION CONSULT FOR REPORTED 25# WEIGHT LOSS X 2 MONTHS. PATIENT WITH MULTIPLE M5 ADMISSIONS SINCE 07/03/23. REVIEW OF WEIGHT HX SHOWS WEIGHT LOSS OF 10% FROM 09/06/23 TO 09/11/23. SUSPECT ERROR IN WEIGHT ON 09/11=67.132 KG SINCE EXTREME WEIGHT LOSS X ONE WEEK UNLIKELY. WEIGHT 09/20/23=74.843 KG. SHOWS WEIGHT LOSS X 3 MONTHS 7#, 4%, NOT SIGNIFICANT. IF LEAVES >50% OF FOOD MOST MEALS, RECOMMEND ENSURE MAX PROTEIN SUPPLEMENT BID (300 KCALS, 60 G PROTEIN). PLEASE CONSULT RD NEEDED.
[2023-09-22] MEDS: cloNIDine HCL 0.1 MG TABLET PO (17:49)
[2023-09-22 18:00] VITALS: BP 126/84; PULSE 98; RESP 18; TEMP 36.7; O2SAT 99
[2023-09-22] MEDS: Prazosin HCL 1 MG CAPSULE 4 MG PO (21:09)
[2023-09-23 08:21] VITALS: BP 99/59; PULSE 79; RESP 16; TEMP 36.4; O2SAT 98
[2023-09-23] MEDS: Nicotine 21 MG PATCH.TD24 TRANSDERMA (09:09)
[2023-09-23] MEDS: buPROPion HCl XL 300 MG TAB.ER.24H PO (09:10)
[2023-09-23] MEDS: Dextroamphetamine/Amphetamine XR 10 MG CAP.ER.24H 30 MG PO (09:10)
[2023-09-23] MEDS: FLUoxetine HCl 10 MG CAPSULE 30 MG PO (09:10)
--- NOTE | 2023-09-23 09:46 | HO.PSYCHPN ---
Subjective Subjective Date of Service: 09/23/23 Reason For Visit: UNSPECIFIED DEPRESSIVE DISORDER Interim History: met with patient; discussed with team Patient open up more about paranoid thinking which is daily, throughout the day. On the unit today, a female peer was sharing something with him and patient had the thought that perhaps she was planted , not a real patient but but there just to mess with him. Other such instances on the unit. Patient said he often has the thought that he is in the [place] Show a movie where everyone in the protagonist life is a fake, and actor, in on joke with Los being the only 1 unaware. He said this happens when he sees a person on the bus, if someone says something to him that he thinks might be too coincidental, he will become suspicious... He does not have an idea of who might be orchestrating this other than that everyone is aware and a part of it accept for him; does not necessarily think that people's intentions are nefarious but rather just to make fun of him. He says he trusts this scenario writer and social work specialist however and also is usually able to talk himself out of it, telling himself he is just miss-interpreting other people's actions or words... However the concern always lingers. Patient has wondered in the past if he has schizophrenia. Discussed diagnosis and that while part of this experiences could be due to history of trauma and subsequent hypervigilance, it may also be partly due to his mind playing tricks on him. Discussed medications, risks/side effects of antipsychotic medications, including Risperdal (including but not limited to hyperprolactinemia, galactorrhea, gynecomastia, TD, dystonia, metabolic syndrome..). Patient felt that the potential benefit was worth the potential risks and wanted to start a trial of Risperdal. Mental Status Exam Mental Status Exam Narrative: Pt is alert and oriented; behavior is cooperative, friendly and calm; patient is not in distress; dressed in casual attire with unkempt hair but adequate hygiene; mood is described as ok and affect congruent; eye contact appropriate; Speech is normal rate, volume and prosody and not pressured; no psychomotor agitation/retardation present; thought process is organized and goal directed; Thought content is on some paranoid thinking; otherwise pertinent to relevant topics; denies any SI/HI. There is no evidence of perceptual disturbance. Patients insight and judgment impaired. Diagnostics Vital Signs (24Hr): Vital Signs - 24 hr 09/22/23 18:00 09/23/23 08:21 Temperature 98.0 F 97.6 F Pulse Rate 98 79 Respiratory Rate 18 16 Blood Pressure 126/84 99/59 L Pulse Oximetry 99 98 Oxygen Delivery Method Room Air BMI result Body Mass Index 21.8 Labs 09/20/23 07:15 Medications Medications Current Medications Acetaminophen (Acetaminophen 325 Mg Tablet) 650 mg PO Q6H PRN PRN Reason: Headache/Pain Mild Scale (1-3) Al Hydroxide/Mg Hydroxide (Magnesium Hydrox/Alum Hydrox 30 Ml Oral.Susp) 30 ml PO Q6H PRN PRN Reason: Heartburn/Nausea Amphetamine/Dextroamphetamine (Dextroamphetamine/Amphetamine Xr 10 Mg Cap.Er.24h) 30 mg PO DAILY [facility] Last Admin: 09/23/23 09:10 Dose: 30 mg Bupropion HCl (Bupropion Hcl Xl 300 Mg Tab.Er.24h) 300 mg PO DAILY [facility] Last Admin: 09/23/23 09:10 Dose: 300 mg Clonidine HCl (Clonidine Hcl 0.1 Mg Tablet) 0.1 mg PO TID PRN; Protocol PRN Reason: anxiety Last Admin: 09/22/23 17:49 Dose: 0.1 mg Fluoxetine HCl (Fluoxetine Hcl 10 Mg Capsule) 30 mg PO DAILY [facility] Last Admin: 09/23/23 09:10 Dose: 30 mg Hydroxyzine HCl (Hydroxyzine Hcl 25 Mg Tablet) 25 mg PO Q6H PRN PRN Reason: Anxiety Magnesium Hydroxide (Milk Of Magnesia 30 Ml Oral.Susp) 30 ml PO DAILY PRN PRN Reason: Constipation Nicotine (Nicotine 21 Mg Patch.Td24) 21 mg TRANSDERMA DAILY [facility] Last Admin: 09/23/23 09:09 Dose: 21 mg Prazosin HCl (Prazosin Hcl 1 Mg Capsule) 4 mg PO BEDTIME [facility]; Protocol Last Admin: 09/22/23 21:09 Dose: 4 mg Trazodone HCl (Trazodone Hcl 50 Mg Tablet) 50 mg PO BEDTIME MRX1 PRN PRN Reason: Insomnia Allergies Allergies Allergy/AdvReac Type Severity Reaction Status Date / Time No Known Allergies Allergy Verified 07/02/23 16:55 Assessment & Plan Assessment & Plan (1) Paranoid type delusional disorder: Status: Acute Code(s): F22 - Delusional disorders (2) PTSD (post-traumatic stress disorder): Status: Acute Code(s): F43.10 - Post-traumatic stress disorder, unspecified (3) MDD (major depressive disorder), recurrent severe, without psychosis: Status: Acute Code(s): F33.2 - Major depressive disorder, recurrent severe without psychotic features (4) Opioid use disorder: Status: Acute Code(s): F11.90 - Opioid use, unspecified, uncomplicated Plan Lonny is a 32-year-old white, single, unemployed, man who lives with 2 roommates. This is his 4th psychiatric hospitalization. He was discharged about a week ago and did not have any outpatient appointment scheduled and has historically not followed up with them. She states that he continued to be quite depressed and having suicidal ideations of wanting to hang himself. He has had an episode of hanging in 2021 when others found out and intervened. He denies any major precipitance or changes triggering the current episode. He does have history of opiate abuse/ dependence, clean for 2 years and is on Sublocade 300 mg monthly, last received 08/05/2023 and states that it usually lasts more than month for him and he has not having any cravings. He has been taking his medications though intermittently. Currently he is on Wellbutrin XL 300 mg, prazosin (recently started close) 4 mg. He does not use trazodone much, Adderall 30 mg daily. He denies any side effects. The prazosin has been moderately helpful with his nightmares with improved sleep but still not optimal. Past Psychiatric History: History of psychiatric admission; 3 prior admissions SA: hanging, 2021 outpt - did not F/U with referral at discharge from 07/12. currently no prescriber. h/o PTSD Dx Medication trials: Adderall, Strattera, Effexor ( at a low dose but made him feel weird ) Hospital course: 09/22 Patient shared again about recent history since M3 admission. He shared that while on M3, a patient was trying to get him to buy drugs after he discharged...on discharge, patient thought a car following him...next day at the [facility] where patient sometimes stays, there was a person who came up to him, talking about [place] and said something to the effect of if you want to check herself into a mental hospital... so can someone else... Since patient had recently discharged from a psychiatric hospital, he felt that this was very strange, became paranoid that this person new something about him, with suspicious, feeling threatened and had the thought to hurt him; instead, patient self presented Firestopper Technician further inquired about history of such feelings. He said sometimes in the community if he starts talking with a stranger he might wonder if the person's following him... He shared of another incident back in July, when he had a Gatorade he was drinking, left it sitting out for a a little bit, came back and then finish the drink, soon after starting to feel very anxious... He went to ED and methamphetamines found in urine. Patient suspicious about this but does not know what else to think. Patient shared about his more distant past, growing up in a very rough neighborhood, having to look over his shoulder just to make sure he was safe which was the norm for everybody he knew. Said otherwise only paranoia he can remembers when he was using cocaine. Currently patient denies feeling paranoid here on unit. 09/23 Patient open up more about paranoid thinking which is daily, throughout the day. On the unit today, a female peer was sharing something with him and patient had the thought that perhaps she was planted , not a real patient but but there just to mess with him. Other such instances on the unit. Patient said he often has the thought that he is in the [employer] a movie where everyone in the protagonist life is a fake, and actor, in on joke with [place] being the only 1 unaware. He said this happens when he sees a person on the bus, if someone says something to him that he thinks might be too coincidental, he will become suspicious... He does not have an idea of who might be orchestrating this other than that everyone is aware and a part of it accept for him; does not necessarily think that people's intentions are nefarious but rather just to make fun of him. He says he trusts this scenario writer and social work specialist however and also is usually able to talk himself out of it, telling himself he is just miss-interpreting other people's actions or words... However the concern always lingers. Patient has wondered in the past if he has schizophrenia. Discussed diagnosis and that while part of this experiences could be due to history of trauma and subsequent hypervigilance, it may also be partly due to his mind playing tricks on him. Discussed medications, risks/side effects of antipsychotic medications, including Risperdal (including but not limited to hyperprolactinemia, galactorrhea, gynecomastia, TD, dystonia, metabolic syndrome..). Patient felt that the potential benefit was worth the potential risks and wanted to start a trial of Risperdal. Impression: In addition to history of depression and PTSD, patient is reporting frequent concerns throughout the day that everyone around him is part of a conspiratorially orchestrated attempt to mess with him... And thus he is being followed or spying on or interacted with specifically to make fun of him or make him fearful. Patient has some insight and says part of him realizes he is just over-reacting, misinterpreting other people and can talk himself out of feeling paranoid; however this concern always lingers. And while likely history of trauma, living in dangerous neighborhoods and subsequent hypervigilance is a component of the etiology, there seems to be an organic psychotic origin as well. -starting patient on low-dose Risperdal -understand the other medications he is on could possibly exacerbate this such as the stimulant medication and Wellbutrin, however he has a long history of ADHD with positive benefit from stimulant medication and Wellbutrin has significantly improved depression; there is no evidence that these medications are either causing or exacerbating psychotic symptoms so will leave for now PLAN: CV Q 15 minute checks START Risperdal 0.5 mg b.i.d.; will start with low-dose to see if that can be effective Continue prazosin 4mg qhs Continue Amphetamine/Dextroamphetamine 20 mg PO DAILY [facility] Continue Sublocade Continue Bupropion XL 300 mg PO DAILY [facility] Continue Clonidine HCl 0.1 mg PO Q4H PRN; Protocol Continue Fluoxetine HCl 20 mg PO DAILY [facility] Continue Hydroxyzine HCl 50 mg PO TID PRNtient. Signing off at this time. Please re-consult if any acute complaints or issues Patient educated on: diagnosis, medication risk/benefits, substance abuse and therapeutic strategies Informed Consent: understands and further education needed Reason for continued inpatient stay Substantial Risk for: rapid decompensation Time Spent With Patient Time: Total time managing care of this patient today ____ minutes.
[2023-09-23] MEDS: cloNIDine HCL 0.1 MG TABLET PO (14:08)
[2023-09-23 14:09] VITALS: BP 127/77; PULSE 82
[2023-09-23] MEDS: risperiDONE 0.5 MG TABLET PO ×2 (16:20→21:02)
[2023-09-23 18:00] VITALS: BP 117/62; PULSE 93; TEMP 36.8; O2SAT 98
[2023-09-23] MEDS: Prazosin HCL 1 MG CAPSULE 4 MG PO (21:02)
[2023-09-24 08:00] VITALS: BP 96/51; PULSE 78; RESP 16; TEMP 36.8; O2SAT 97
[2023-09-24] MEDS: Dextroamphetamine/Amphetamine XR 10 MG CAP.ER.24H 30 MG PO (09:07)
[2023-09-24] MEDS: buPROPion HCl XL 300 MG TAB.ER.24H PO (09:08)
[2023-09-24] MEDS: FLUoxetine HCl 10 MG CAPSULE 30 MG PO (09:08)
[2023-09-24] MEDS: risperiDONE 0.5 MG TABLET PO ×2 (09:08→21:32)
[2023-09-24] MEDS: Nicotine 21 MG PATCH.TD24 TRANSDERMA (09:11)
[2023-09-24 10:00] VITALS: BP 135/69; PULSE 104
--- NOTE | 2023-09-24 16:46 | P.PNPSI_ITS ---
Subjective Subjective Date of Service: 09/24/23 Reason For Visit: UNSPECIFIED DEPRESSIVE DISORDER Interim History: Met with patient; discussed with team Still paranoid behavior with peers though able to talk himself out of it. Patient said he felt a little tremulous after taking medication but it resolved. He wants to remain on current dose for now but is open to increasing it further. 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 He said ever since then the paranoia was on least Mental Status Exam Mental Status Exam Narrative: Pt is alert and oriented; behavior is cooperative, friendly and calm; patient is not in distress; dressed in casual attire with unkempt hair but adequate hygiene; mood is described as ok and affect congruent; eye contact appropriate; Speech is normal rate, volume and prosody and not pressured; no psychomotor agitation/retardation present; thought process is organized and goal directed; Thought content is on some paranoid thinking; otherwise pertinent to relevant topics; denies any SI/HI. There is no evidence of perceptual disturbance. Patients insight and judgment impaired. Diagnostics Vital Signs (24Hr): Vital Signs - 24 hr 09/23/23 18:00 09/24/23 08:00 09/24/23 10:00 Temperature 98.2 F 98.2 F Pulse Rate 93 78 104 H Respiratory Rate 16 Blood Pressure 117/62 96/51 L 135/69 Pulse Oximetry 98 97 Oxygen Delivery Method Room Air Room Air BMI result Body Mass Index 21.8 Labs 09/20/23 07:15 Medications Medications Current Medications Acetaminophen (Acetaminophen 325 Mg Tablet) 650 mg PO Q6H PRN PRN Reason: Headache/Pain Mild Scale (1-3) Al Hydroxide/Mg Hydroxide (Magnesium Hydrox/Alum Hydrox 30 Ml Oral.Susp) 30 ml PO Q6H PRN PRN Reason: Heartburn/Nausea Amphetamine/Dextroamphetamine (Dextroamphetamine/Amphetamine Xr 10 Mg Cap.Er.24h) 30 mg PO DAILY [facility] Last Admin: 09/24/23 09:07 Dose: 30 mg Bupropion HCl (Bupropion Hcl Xl 300 Mg Tab.Er.24h) 300 mg PO DAILY [facility] Last Admin: 09/24/23 09:08 Dose: 300 mg Clonidine HCl (Clonidine Hcl 0.1 Mg Tablet) 0.1 mg PO TID PRN; Protocol PRN Reason: anxiety Last Admin: 09/23/23 14:08 Dose: 0.1 mg Fluoxetine HCl (Fluoxetine Hcl 10 Mg Capsule) 30 mg PO DAILY [facility] Last Admin: 09/24/23 09:08 Dose: 30 mg Hydroxyzine HCl (Hydroxyzine Hcl 25 Mg Tablet) 25 mg PO Q6H PRN PRN Reason: Anxiety Magnesium Hydroxide (Milk Of Magnesia 30 Ml Oral.Susp) 30 ml PO DAILY PRN PRN Reason: Constipation Nicotine (Nicotine 21 Mg Patch.Td24) 21 mg TRANSDERMA DAILY [facility] Last Admin: 09/24/23 09:11 Dose: 21 mg Prazosin HCl (Prazosin Hcl 1 Mg Capsule) 4 mg PO BEDTIME [facility]; Protocol Last Admin: 09/23/23 21:02 Dose: 4 mg Risperidone (Risperidone 0.5 Mg Tablet) 0.5 mg PO BID [facility] Last Admin: 09/24/23 09:08 Dose: 0.5 mg Trazodone HCl (Trazodone Hcl 50 Mg Tablet) 50 mg PO BEDTIME [facility] PRN PRN Reason: Insomnia Allergies Allergies Allergy/AdvReac Type Severity Reaction Status Date / Time No Known Allergies Allergy Verified 07/02/23 16:55 Assessment & Plan Assessment & Plan (1) Paranoid type delusional disorder: Status: Acute Code(s): F22 - Delusional disorders (2) PTSD (post-traumatic stress disorder): Status: Acute Code(s): F43.10 - Post-traumatic stress disorder, unspecified (3) MDD (major depressive disorder), recurrent severe, without psychosis: Status: Acute Code(s): F33.2 - Major depressive disorder, recurrent severe without psychotic features (4) Opioid use disorder: Status: Acute Code(s): F11.90 - Opioid use, unspecified, uncomplicated Plan Lonny is a 32-year-old white, single, unemployed, man who lives with 2 roommates. This is his 4th psychiatric hospitalization. He was discharged about a week ago and did not have any outpatient appointment scheduled and has historically not followed up with them. She states that he continued to be quite depressed and having suicidal ideations of wanting to hang himself. He has had an episode of hanging in 2021 when others found out and intervened. He denies any major precipitance or changes triggering the current episode. He does have history of opiate abuse/ dependence, clean for 2 years and is on Sublocade 300 mg monthly, last received 08/05/2023 and states that it usually lasts more than month for him and he has not having any cravings. He has been taking his medications though intermittently. Currently he is on Wellbutrin XL 300 mg, prazosin (recently started close) 4 mg. He does not use trazodone much, Adderall 30 mg daily. He denies any side effects. The prazosin has been moderately helpful with his nightmares with improved sleep but still not optimal. Past Psychiatric History: History of psychiatric admission; 3 prior admissions SA: hanging, 2021 outpt - did not F/U with referral at discharge from 07/12. currently no prescriber. h/o PTSD Dx Medication trials: Adderall, Strattera, Effexor ( at a low dose but made him feel weird ) Hospital course: 09/22 Patient shared again about recent history since [facility] admission. He shared that while on [facility], a patient was trying to get him to buy drugs after he discharged...on discharge, patient thought a car following him...next day at the [facility] where patient sometimes stays, there was a person who came up to him, talking about [place] and said something to the effect of if you want to check herself into a mental hospital... so can someone else... Since patient had recently discharged from a psychiatric hospital, he felt that this was very strange, became paranoid that this person new something about him, with suspicious, feeling threatened and had the thought to hurt him; instead, patient self presented Telephone Surveyor further inquired about history of such feelings. He said sometimes in the community if he starts talking with a stranger he might wonder if the person's following him... He shared of another incident back in July, when he had a Gatorade he was drinking, left it sitting out for a a little bit, came back and then finish the drink, soon after starting to feel very anxious... He went to ED and methamphetamines found in urine. Patient suspicious about this but does not know what else to think. Patient shared about his more distant past, growing up in a very rough neighborhood, having to look over his shoulder just to make sure he was safe which was the norm for everybody he knew. Said otherwise only paranoia he can remembers when he was using cocaine. Currently patient denies feeling paranoid here on unit. 09/23 Patient open up more about paranoid thinking which is daily, throughout the day. On the unit today, a female peer was sharing something with him and patient had the thought that perhaps she was planted , not a real patient but but there just to mess with him. Other such instances on the unit. Patient said he often has the thought that he is in the [place] [employer] a movie where everyone in the protagonist life is a fake, and actor, in on joke with [place] being the only 1 unaware. He said this happens when he sees a person on the bus, if someone says something to him that he thinks might be too coincidental, he will become suspicious... He does not have an idea of who might be orchestrating this other than that everyone is aware and a part of it accept for him; does not necessarily think that people's intentions are nefarious but rather just to make fun of him. He says he trusts this publicity writer and geriatric social worker however and also is usually able to talk himself out of it, telling himself he is just miss-interpreting other people's actions or words... However the concern always lingers. Patient has wondered in the past if he has schizophrenia. Discussed diagnosis and that while part of this experiences could be due to history of trauma and subsequent hypervigilance, it may also be partly due to his mind playing tricks on him. Discussed medications, risks/side effects of antipsychotic medications, including Risperdal (including but not limited to hyperprolactinemia, galactorrhea, gynecomastia, TD, dystonia, metabolic syndrome..). Patient felt that the potential benefit was worth the potential risks and wanted to start a trial of Risperdal. 09/24 continue current dose for now; will consider increasing Risperdal Impression: In addition to history of depression and PTSD, patient is reporting frequent concerns throughout the day that everyone around him is part of a conspiratorially orchestrated attempt to mess with him... And thus he is being followed or spying on or interacted with specifically to make fun of him or make him fearful. Patient has some insight and says part of him realizes he is just over-reacting, misinterpreting other people and can talk himself out of feeling paranoid; however this concern always lingers. And while likely history of trauma, living in dangerous neighborhoods and subsequent hypervigilance is a component of the etiology, there seems to be an organic psychotic origin as well. -starting patient on low-dose Risperdal -understand the other medications he is on could possibly exacerbate this such as the stimulant medication and Wellbutrin, however he has a long history of ADHD with positive benefit from stimulant medication and Wellbutrin has significantly improved depression; there is no evidence that these medications are either causing or exacerbating psychotic symptoms so will leave for now PLAN: CV Q 15 minute checks Continue Risperdal 0.5 mg b.i.d.; will start with low-dose to see if that can be effective Continue prazosin 4mg qhs Continue Amphetamine/Dextroamphetamine 20 mg PO DAILY [facility] Continue Sublocade Continue Bupropion XL 300 mg PO DAILY [facility] Continue Clonidine HCl 0.1 mg PO Q4H PRN; Protocol Continue Fluoxetine HCl 20 mg PO DAILY [facility] Continue Hydroxyzine HCl 50 mg PO TID PRNtient. Signing off at this time. Please re-consult if any acute complaints or issues Patient educated on: diagnosis, medication risk/benefits and substance abuse Informed Consent: understands and further education needed Reason for continued inpatient stay Substantial Risk for: rapid decompensation Time Spent With Patient Time: Total time managing care of this patient today ____ minutes.
[2023-09-24 20:55] VITALS: BP 122/80; PULSE 115; RESP 18; TEMP 36.6; O2SAT 97
[2023-09-24] MEDS: Prazosin HCL 1 MG CAPSULE 4 MG PO (21:32)
[2023-09-25] MEDS: FLUoxetine HCl 10 MG CAPSULE 30 MG PO (08:48)
[2023-09-25] MEDS: Dextroamphetamine/Amphetamine XR 10 MG CAP.ER.24H 30 MG PO (08:48)
[2023-09-25] MEDS: buPROPion HCl XL 300 MG TAB.ER.24H PO (08:49)
[2023-09-25] MEDS: Nicotine 21 MG PATCH.TD24 TRANSDERMA (08:49)
[2023-09-25] MEDS: risperiDONE 0.5 MG TABLET PO (08:49)
[2023-09-25 09:00] VITALS: BP 114/71; PULSE 108; RESP 18; TEMP 36.6; O2SAT 96
--- NOTE | 2023-09-25 09:30 | HO.PSYCHPN ---
Subjective Subjective Date of Service: 09/25/23 Reason For Visit: UNSPECIFIED DEPRESSIVE DISORDER Interim History: met with patient; discussed with team Remains with paranoid delusional ideas that there is some conspiracy with which everyone is involved; patient has insight into this and asks for Risperdal to be increased to which teletypewriter operator agrees. Otherwise with appropriate behaviors and impulse control Mental Status Exam Mental Status Exam Narrative: Pt is alert and oriented; behavior is cooperative, friendly and calm; patient is not in distress; dressed in casual attire with unkempt hair but adequate hygiene; mood is described as ok and affect congruent; eye contact appropriate; Speech is normal rate, volume and prosody and not pressured; no psychomotor agitation/retardation present; thought process is organized and goal directed; Thought content is on some paranoid thinking; otherwise pertinent to relevant topics; denies any SI/HI. There is no evidence of perceptual disturbance. Patients insight and judgment impaired. Diagnostics Vital Signs (24Hr): Vital Signs - 24 hr 09/24/23 10:00 09/24/23 20:55 Temperature 97.8 F Pulse Rate 104 H 115 H Respiratory Rate 18 Blood Pressure 135/69 122/80 Pulse Oximetry 97 Oxygen Delivery Method Room Air BMI result Body Mass Index 21.8 Labs 09/20/23 07:15 Medications Medications Current Medications Acetaminophen (Acetaminophen 325 Mg Tablet) 650 mg PO Q6H PRN PRN Reason: Headache/Pain Mild Scale (1-3) Al Hydroxide/Mg Hydroxide (Magnesium Hydrox/Alum Hydrox 30 Ml Oral.Susp) 30 ml PO Q6H PRN PRN Reason: Heartburn/Nausea Amphetamine/Dextroamphetamine (Dextroamphetamine/Amphetamine Xr 10 Mg Cap.Er.24h) 30 mg PO DAILY [facility] Last Admin: 09/25/23 08:48 Dose: 30 mg Bupropion HCl (Bupropion Hcl Xl 300 Mg Tab.Er.24h) 300 mg PO DAILY [facility] Last Admin: 09/25/23 08:49 Dose: 300 mg Clonidine HCl (Clonidine Hcl 0.1 Mg Tablet) 0.1 mg PO TID PRN; Protocol PRN Reason: anxiety Last Admin: 09/23/23 14:08 Dose: 0.1 mg Fluoxetine HCl (Fluoxetine Hcl 10 Mg Capsule) 30 mg PO DAILY [facility] Last Admin: 09/25/23 08:48 Dose: 30 mg Hydroxyzine HCl (Hydroxyzine Hcl 25 Mg Tablet) 25 mg PO Q6H PRN PRN Reason: Anxiety Magnesium Hydroxide (Milk Of Magnesia 30 Ml Oral.Susp) 30 ml PO DAILY PRN PRN Reason: Constipation Nicotine (Nicotine 21 Mg Patch.Td24) 21 mg TRANSDERMA DAILY [facility] Last Admin: 09/25/23 08:49 Dose: 21 mg Prazosin HCl (Prazosin Hcl 1 Mg Capsule) 4 mg PO BEDTIME [facility]; Protocol Last Admin: 09/24/23 21:32 Dose: 4 mg Risperidone (Risperidone 0.5 Mg Tablet) 0.5 mg PO BID [facility] Last Admin: 09/25/23 08:49 Dose: 0.5 mg Trazodone HCl (Trazodone Hcl 50 Mg Tablet) 50 mg PO BEDTIME MRX1 PRN PRN Reason: Insomnia Allergies Allergies Allergy/AdvReac Type Severity Reaction Status Date / Time No Known Allergies Allergy Verified 07/02/23 16:55 Assessment & Plan Assessment & Plan (1) Paranoid type delusional disorder: Status: Acute Code(s): F22 - Delusional disorders (2) PTSD (post-traumatic stress disorder): Status: Acute Code(s): F43.10 - Post-traumatic stress disorder, unspecified (3) MDD (major depressive disorder), recurrent severe, without psychosis: Status: Acute Code(s): F33.2 - Major depressive disorder, recurrent severe without psychotic features (4) Opioid use disorder: Status: Acute Code(s): F11.90 - Opioid use, unspecified, uncomplicated Plan Lonny is a 32-year-old white, single, unemployed, man who lives with 2 roommates. This is his 4th psychiatric hospitalization. He was discharged about a week ago and did not have any outpatient appointment scheduled and has historically not followed up with them. She states that he continued to be quite depressed and having suicidal ideations of wanting to hang himself. He has had an episode of hanging in 2021 when others found out and intervened. He denies any major precipitance or changes triggering the current episode. He does have history of opiate abuse/ dependence, clean for 2 years and is on Sublocade 300 mg monthly, last received 08/05/2023 and states that it usually lasts more than month for him and he has not having any cravings. He has been taking his medications though intermittently. Currently he is on Wellbutrin XL 300 mg, prazosin (recently started close) 4 mg. He does not use trazodone much, Adderall 30 mg daily. He denies any side effects. The prazosin has been moderately helpful with his nightmares with improved sleep but still not optimal. Past Psychiatric History: History of psychiatric admission; 3 prior admissions SA: hanging, 2021 outpt - did not F/U with referral at discharge from [facility] 07/12. currently no prescriber. h/o PTSD Dx Medication trials: Adderall, Strattera, Effexor ( at a low dose but made him feel weird ) Hospital course: 09/22 Patient shared again about recent history since [facility] admission. He shared that while on M3, a patient was trying to get him to buy drugs after he discharged...on discharge, patient thought a car following him...next day at the [facility] where patient sometimes stays, there was a person who came up to him, talking about [place] and said something to the effect of if you want to check herself into a mental hospital... so can someone else... Since patient had recently discharged from a psychiatric hospital, he felt that this was very strange, became paranoid that this person new something about him, with suspicious, feeling threatened and had the thought to hurt him; instead, patient self presented Blanket Cutting Machine Operator further inquired about history of such feelings. He said sometimes in the community if he starts talking with a stranger he might wonder if the person's following him... He shared of another incident back in July, when he had a Gatorade he was drinking, left it sitting out for a a little bit, came back and then finish the drink, soon after starting to feel very anxious... He went to ED and methamphetamines found in urine. Patient suspicious about this but does not know what else to think. Patient shared about his more distant past, growing up in a very rough neighborhood, having to look over his shoulder just to make sure he was safe which was the norm for everybody he knew. Said otherwise only paranoia he can remembers when he was using cocaine. Currently patient denies feeling paranoid here on unit. 09/23 Patient open up more about paranoid thinking which is daily, throughout the day. On the unit today, a female peer was sharing something with him and patient had the thought that perhaps she was planted , not a real patient but but there just to mess with him. Other such instances on the unit. Patient said he often has the thought that he is in the [place] Show a movie where everyone in the protagonist life is a fake, and actor, in on joke with [place] being the only 1 unaware. He said this happens when he sees a person on the bus, if someone says something to him that he thinks might be too coincidental, he will become suspicious... He does not have an idea of who might be orchestrating this other than that everyone is aware and a part of it accept for him; does not necessarily think that people's intentions are nefarious but rather just to make fun of him. He says he trusts this teletypewriter operator and social work supervisor however and also is usually able to talk himself out of it, telling himself he is just miss-interpreting other people's actions or words... However the concern always lingers. Patient has wondered in the past if he has schizophrenia. Discussed diagnosis and that while part of this experiences could be due to history of trauma and subsequent hypervigilance, it may also be partly due to his mind playing tricks on him. Discussed medications, risks/side effects of antipsychotic medications, including Risperdal (including but not limited to hyperprolactinemia, galactorrhea, gynecomastia, TD, dystonia, metabolic syndrome..). Patient felt that the potential benefit was worth the potential risks and wanted to start a trial of Risperdal. 09/24 continue current dose for now; will consider increasing Risperdal 09/25 Increase to Risperdal 1 mg b.i.d. for continued paranoid delusional thinking; refusing to go back to group home at this time, did paranoid delusions, rendering himself homeless Impression: In addition to history of depression and PTSD, patient is reporting frequent concerns throughout the day that everyone around him is part of a conspiratorially orchestrated attempt to mess with him... And thus he is being followed or spying on or interacted with specifically to make fun of him or make him fearful. Patient has some insight and says part of him realizes he is just over-reacting, misinterpreting other people and can talk himself out of feeling paranoid; however this concern always lingers. And while likely history of trauma, living in dangerous neighborhoods and subsequent hypervigilance is a component of the etiology, there seems to be an organic psychotic origin as well. -starting patient on low-dose Risperdal -understand the other medications he is on could possibly exacerbate this such as the stimulant medication and Wellbutrin, however he has a long history of ADHD with positive benefit from stimulant medication and Wellbutrin has significantly improved depression; there is no evidence that these medications are either causing or exacerbating psychotic symptoms so will leave for now PLAN: CV Q 15 minute checks Increase to Risperdal 1 mg b.i.d. for continued paranoid delusional thinking Continue prazosin 4mg qhs Continue Amphetamine/Dextroamphetamine 20 mg PO DAILY [facility] Continue Sublocade Continue Bupropion XL 300 mg PO DAILY [facility] Continue Clonidine HCl 0.1 mg PO Q4H PRN; Protocol Continue Fluoxetine HCl 20 mg PO DAILY [facility] Continue Hydroxyzine HCl 50 mg PO TID PRNtient. Signing off at this time. Please re-consult if any acute complaints or issues Patient educated on: diagnosis and medication risk/benefits Informed Consent: understands Reason for continued inpatient stay Substantial Risk for: rapid decompensation Time Spent With Patient Time: Total time managing care of this patient today ____ minutes.
[2023-09-25 16:25] VITALS: BP 112/66; PULSE 85; RESP 16; TEMP 36.9; O2SAT 98
[2023-09-25 20:45] VITALS: BP 109/61; PULSE 86; RESP 16; O2SAT 98
[2023-09-25] MEDS: Prazosin HCL 1 MG CAPSULE 4 MG PO (20:49)
[2023-09-25] MEDS: risperiDONE 1 MG TABLET PO (20:49)
[2023-09-26 06:00] VITALS: BP 94/53; PULSE 93; RESP 18; TEMP 36.6; O2SAT 95
[2023-09-26] MEDS: FLUoxetine HCl 10 MG CAPSULE 30 MG PO (08:22)
[2023-09-26] MEDS: Nicotine 21 MG PATCH.TD24 TRANSDERMA (08:23)
[2023-09-26] MEDS: Dextroamphetamine/Amphetamine XR 10 MG CAP.ER.24H 30 MG PO (08:23)
[2023-09-26] MEDS: buPROPion HCl XL 300 MG TAB.ER.24H PO (08:23)
[2023-09-26] MEDS: risperiDONE 1 MG TABLET PO ×2 (08:23→22:43)
--- NOTE | 2023-09-26 09:30 | HO.PSYCHPN ---
Subjective Subjective Date of Service: 09/26/23 Reason For Visit: UNSPECIFIED DEPRESSIVE DISORDER Interim History: Met with patient; discussed with team Patient reports that so far this morning no paranoid thoughts; he has not sure if this is just a coincidence but he is hopeful. Said he felt a little tired this morning likely due to the increased Risperdal; he has not mind continuing to take it as it is currently scheduled but agrees if daytime sedation continues, to move medication to nighttime. Mental Status Exam Mental Status Exam Narrative: Pt is alert and oriented; behavior is cooperative, friendly and calm; patient is not in distress; dressed in casual attire with unkempt hair but adequate hygiene; mood is described as ok and affect congruent; eye contact appropriate; Speech is normal rate, volume and prosody and not pressured; no psychomotor agitation/retardation present; thought process is organized and goal directed; Thought content is on some paranoid thinking; otherwise pertinent to relevant topics; denies any SI/HI. There is no evidence of perceptual disturbance. Patients insight and judgment impaired but improving. Diagnostics Vital Signs (24Hr): Vital Signs - 24 hr 09/25/23 16:25 09/25/23 20:45 Temperature 98.4 F Pulse Rate 85 86 Respiratory Rate 16 16 Blood Pressure 112/66 109/61 Pulse Oximetry 98 98 Oxygen Delivery Method Room Air Room Air BMI result Body Mass Index 20.0 Labs 09/20/23 07:15 Medications Medications Current Medications Acetaminophen (Acetaminophen 325 Mg Tablet) 650 mg PO Q6H PRN PRN Reason: Headache/Pain Mild Scale (1-3) Al Hydroxide/Mg Hydroxide (Magnesium Hydrox/Alum Hydrox 30 Ml Oral.Susp) 30 ml PO Q6H PRN PRN Reason: Heartburn/Nausea Amphetamine/Dextroamphetamine (Dextroamphetamine/Amphetamine Xr 10 Mg Cap.Er.24h) 30 mg PO DAILY [facility] Last Admin: 09/26/23 08:23 Dose: 30 mg Bupropion HCl (Bupropion Hcl Xl 300 Mg Tab.Er.24h) 300 mg PO DAILY [facility] Last Admin: 09/26/23 08:23 Dose: 300 mg Clonidine HCl (Clonidine Hcl 0.1 Mg Tablet) 0.1 mg PO TID PRN; Protocol PRN Reason: anxiety Last Admin: 09/23/23 14:08 Dose: 0.1 mg Fluoxetine HCl (Fluoxetine Hcl 10 Mg Capsule) 30 mg PO DAILY [facility] Last Admin: 09/26/23 08:22 Dose: 30 mg Hydroxyzine HCl (Hydroxyzine Hcl 25 Mg Tablet) 25 mg PO Q6H PRN PRN Reason: Anxiety Magnesium Hydroxide (Milk Of Magnesia 30 Ml Oral.Susp) 30 ml PO DAILY PRN PRN Reason: Constipation Nicotine (Nicotine 21 Mg Patch.Td24) 21 mg TRANSDERMA DAILY [facility] Last Admin: 09/26/23 08:23 Dose: 21 mg Prazosin HCl (Prazosin Hcl 1 Mg Capsule) 4 mg PO BEDTIME [facility]; Protocol Last Admin: 09/25/23 20:49 Dose: 4 mg Risperidone (Risperidone 1 Mg Tablet) 1 mg PO BID [facility] Last Admin: 09/26/23 08:23 Dose: 1 mg Allergies Allergies Allergy/AdvReac Type Severity Reaction Status Date / Time No Known Allergies Allergy Verified 07/02/23 16:55 Assessment & Plan Assessment & Plan (1) Paranoid type delusional disorder: Status: Acute Code(s): F22 - Delusional disorders (2) PTSD (post-traumatic stress disorder): Status: Acute Code(s): F43.10 - Post-traumatic stress disorder, unspecified (3) MDD (major depressive disorder), recurrent severe, without psychosis: Status: Acute Code(s): F33.2 - Major depressive disorder, recurrent severe without psychotic features (4) Opioid use disorder: Status: Acute Code(s): F11.90 - Opioid use, unspecified, uncomplicated Plan Lonny is a 32-year-old white, single, unemployed, man who lives with 2 roommates. This is his 4th psychiatric hospitalization. He was discharged about a week ago and did not have any outpatient appointment scheduled and has historically not followed up with them. She states that he continued to be quite depressed and having suicidal ideations of wanting to hang himself. He has had an episode of hanging in 2021 when others found out and intervened. He denies any major precipitance or changes triggering the current episode. He does have history of opiate abuse/ dependence, clean for 2 years and is on Sublocade 300 mg monthly, last received 08/05/2023 and states that it usually lasts more than month for him and he has not having any cravings. He has been taking his medications though intermittently. Currently he is on Wellbutrin XL 300 mg, prazosin (recently started close) 4 mg. He does not use trazodone much, Adderall 30 mg daily. He denies any side effects. The prazosin has been moderately helpful with his nightmares with improved sleep but still not optimal. Past Psychiatric History: History of psychiatric admission; 3 prior admissions SA: hanging, 2021 outpt - did not F/U with referral at discharge from [facility] 07/12. currently no prescriber. h/o PTSD Dx Medication trials: Adderall, Strattera, Effexor ( at a low dose but made him feel weird ) Hospital course: 09/22 Patient shared again about recent history since [facility] admission. He shared that while on [facility], a patient was trying to get him to buy drugs after he discharged...on discharge, patient thought a car following him...next day at the [facility] where patient sometimes stays, there was a person who came up to him, talking about [place] and said something to the effect of if you want to check herself into a mental hospital... so can someone else... Since patient had recently discharged from a psychiatric hospital, he felt that this was very strange, became paranoid that this person new something about him, with suspicious, feeling threatened and had the thought to hurt him; instead, patient self presented Clinical Cytogenetics Director further inquired about history of such feelings. He said sometimes in the community if he starts talking with a stranger he might wonder if the person's following him... He shared of another incident back in July, when he had a Gatorade he was drinking, left it sitting out for a a little bit, came back and then finish the drink, soon after starting to feel very anxious... He went to ED and methamphetamines found in urine. Patient suspicious about this but does not know what else to think. Patient shared about his more distant past, growing up in a very rough neighborhood, having to look over his shoulder just to make sure he was safe which was the norm for everybody he knew. Said otherwise only paranoia he can remembers when he was using cocaine. Currently patient denies feeling paranoid here on unit. 09/23 Patient open up more about paranoid thinking which is daily, throughout the day. On the unit today, a female peer was sharing something with him and patient had the thought that perhaps she was planted , not a real patient but but there just to mess with him. Other such instances on the unit. Patient said he often has the thought that he is in the [place] a movie where everyone in the protagonist life is a fake, and actor, in on joke with [place] being the only 1 unaware. He said this happens when he sees a person on the bus, if someone says something to him that he thinks might be too coincidental, he will become suspicious... He does not have an idea of who might be orchestrating this other than that everyone is aware and a part of it accept for him; does not necessarily think that people's intentions are nefarious but rather just to make fun of him. He says he trusts this designer writer and social sciences lecturer however and also is usually able to talk himself out of it, telling himself he is just miss-interpreting other people's actions or words... However the concern always lingers. Patient has wondered in the past if he has schizophrenia. Discussed diagnosis and that while part of this experiences could be due to history of trauma and subsequent hypervigilance, it may also be partly due to his mind playing tricks on him. Discussed medications, risks/side effects of antipsychotic medications, including Risperdal (including but not limited to hyperprolactinemia, galactorrhea, gynecomastia, TD, dystonia, metabolic syndrome..). Patient felt that the potential benefit was worth the potential risks and wanted to start a trial of Risperdal. 09/24 continue current dose for now; will consider increasing Risperdal 09/25 Increase to Risperdal 1 mg b.i.d. for continued paranoid delusional thinking; refusing to go back to retirement at this time, did paranoid delusions, rendering himself homeless 09/26 tolerating increased Risperdal dose though a little tired in the morning; not sure if effective yet; good behavioral and impulse control and appropriate with peers and staff, attending groups and engaged in treatment Impression: In addition to history of depression and PTSD, patient is reporting frequent concerns throughout the day that everyone around him is part of a conspiratorially orchestrated attempt to mess with him... And thus he is being followed or spying on or interacted with specifically to make fun of him or make him fearful. Patient has some insight and says part of him realizes he is just over-reacting, misinterpreting other people and can talk himself out of feeling paranoid; however this concern always lingers. And while likely history of trauma, living in dangerous neighborhoods and subsequent hypervigilance is a component of the etiology, there seems to be an organic psychotic origin as well. -starting patient on low-dose Risperdal -understand the other medications he is on could possibly exacerbate this such as the stimulant medication and Wellbutrin, however he has a long history of ADHD with positive benefit from stimulant medication and Wellbutrin has significantly improved depression; there is no evidence that these medications are either causing or exacerbating psychotic symptoms so will leave for now PLAN: CV Q 15 minute checks Continue Risperdal 1 mg b.i.d. for continued paranoid delusional thinking Continue prazosin 4mg qhs Continue Amphetamine/Dextroamphetamine 20 mg PO DAILY [facility] Continue Sublocade Continue Bupropion XL 300 mg PO DAILY [facility] Continue Clonidine HCl 0.1 mg PO Q4H PRN; Protocol Continue Fluoxetine HCl 20 mg PO DAILY [facility] Continue Hydroxyzine HCl 50 mg PO TID PRNtient. Signing off at this time. Please re-consult if any acute complaints or issues Patient educated on: diagnosis and medication risk/benefits Informed Consent: understands Reason for continued inpatient stay Substantial Risk for: rapid decompensation Time Spent With Patient Time: Total time managing care of this patient today ____ minutes.
[2023-09-26 18:00] VITALS: BP 123/76; PULSE 91; RESP 18; TEMP 36.7; O2SAT 99
[2023-09-26] MEDS: Prazosin HCL 1 MG CAPSULE 4 MG PO (22:43)
[2023-09-26 22:57] VITALS: BP 129/81; PULSE 96; RESP 18
[2023-09-27 08:02] VITALS: BP 102/62; PULSE 92; RESP 16; TEMP 36.5; O2SAT 100
[2023-09-27] MEDS: FLUoxetine HCl 10 MG CAPSULE 30 MG PO (08:29)
[2023-09-27] MEDS: Nicotine 21 MG PATCH.TD24 TRANSDERMA (08:30)
[2023-09-27] MEDS: Dextroamphetamine/Amphetamine XR 10 MG CAP.ER.24H 30 MG PO (08:30)
[2023-09-27] MEDS: buPROPion HCl XL 300 MG TAB.ER.24H PO (08:30)
[2023-09-27] MEDS: risperiDONE 1 MG TABLET PO ×2 (08:30→21:34)
--- NOTE | 2023-09-27 10:09 | P.PNPSI_ITS ---
Subjective Subjective Date of Service: 09/27/23 Reason For Visit: UNSPECIFIED DEPRESSIVE DISORDER Interim History: met With patient; discussed with team Feeling overall better. No paranoid thoughts yesterday or today. Some paranoid thoughts about once he leaves the hospital however he is pleased with the improvement. Asks for Risperdal to be all at bedtime due to daytime sedation. Also asks to make sure he can get back on subacute or at least Suboxone Mental Status Exam Mental Status Exam Narrative: Pt is alert and oriented; behavior is cooperative, friendly and calm; patient is not in distress; dressed in casual attire with unkempt hair but adequate hygiene; mood is described as good and affect congruent; eye contact appropriate; Speech is normal rate, volume and prosody and not pressured; no psychomotor agitation/retardation present; thought process is organized and goal directed; Thought content is without paranoid thinking; otherwise pertinent to relevant topics; denies any SI/HI. There is no evidence of perceptual disturbance. Patients insight and judgment fair Diagnostics Vital Signs (24Hr): Vital Signs - 24 hr 09/26/23 18:00 09/26/23 22:57 09/27/23 08:02 Temperature 98.1 F 97.7 F Pulse Rate 91 96 92 Respiratory Rate 18 18 16 Blood Pressure 123/76 129/81 102/62 Pulse Oximetry 99 100 Oxygen Delivery Method Room Air Room Air BMI result Body Mass Index 20.0 Labs 09/20/23 07:15 Medications Medications Current Medications Acetaminophen (Acetaminophen 325 Mg Tablet) 650 mg PO Q6H PRN PRN Reason: Headache/Pain Mild Scale (1-3) Al Hydroxide/Mg Hydroxide (Magnesium Hydrox/Alum Hydrox 30 Ml Oral.Susp) 30 ml PO Q6H PRN PRN Reason: Heartburn/Nausea Amphetamine/Dextroamphetamine (Dextroamphetamine/Amphetamine Xr 10 Mg Cap.Er.24h) 30 mg PO DAILY [facility] Last Admin: 09/27/23 08:30 Dose: 30 mg Bupropion HCl (Bupropion Hcl Xl 300 Mg Tab.Er.24h) 300 mg PO DAILY [facility] Last Admin: 09/27/23 08:30 Dose: 300 mg Clonidine HCl (Clonidine Hcl 0.1 Mg Tablet) 0.1 mg PO TID PRN; Protocol PRN Reason: anxiety Last Admin: 09/23/23 14:08 Dose: 0.1 mg Fluoxetine HCl (Fluoxetine Hcl 10 Mg Capsule) 30 mg PO DAILY [facility] Last Admin: 09/27/23 08:29 Dose: 30 mg Hydroxyzine HCl (Hydroxyzine Hcl 25 Mg Tablet) 25 mg PO Q6H PRN PRN Reason: Anxiety Magnesium Hydroxide (Milk Of Magnesia 30 Ml Oral.Susp) 30 ml PO DAILY PRN PRN Reason: Constipation Nicotine (Nicotine 21 Mg Patch.Td24) 21 mg TRANSDERMA DAILY [facility] Last Admin: 09/27/23 08:30 Dose: 21 mg Prazosin HCl (Prazosin Hcl 1 Mg Capsule) 4 mg PO BEDTIME [facility]; Protocol Last Admin: 09/26/23 22:43 Dose: 4 mg Risperidone (Risperidone 1 Mg Tablet) 1 mg PO BID [facility] Last Admin: 09/27/23 08:30 Dose: 1 mg Allergies Allergies Allergy/AdvReac Type Severity Reaction Status Date / Time No Known Allergies Allergy Verified 07/02/23 16:55 Assessment & Plan Assessment & Plan (1) Paranoid type delusional disorder: Status: Acute Code(s): F22 - Delusional disorders (2) PTSD (post-traumatic stress disorder): Status: Acute Code(s): F43.10 - Post-traumatic stress disorder, unspecified (3) MDD (major depressive disorder), recurrent severe, without psychosis: Status: Acute Code(s): F33.2 - Major depressive disorder, recurrent severe without psychotic features (4) Opioid use disorder: Status: Acute Code(s): F11.90 - Opioid use, unspecified, uncomplicated Plan Lonny is a 32-year-old white, single, unemployed, man who lives with 2 roommates. This is his 4th psychiatric hospitalization. He was discharged about a week ago and did not have any outpatient appointment scheduled and has historically not followed up with them. She states that he continued to be quite depressed and having suicidal ideations of wanting to hang himself. He has had an episode of hanging in 2021 when others found out and intervened. He denies any major precipitance or changes triggering the current episode. He does have history of opiate abuse/ dependence, clean for 2 years and is on Sublocade 300 mg monthly, last received 08/05/2023 and states that it usually lasts more than month for him and he has not having any cravings. He has been taking his medications though intermittently. Currently he is on Wellbutrin XL 300 mg, prazosin (recently started close) 4 mg. He does not use trazodone much, Adderall 30 mg daily. He denies any side effects. The prazosin has been moderately helpful with his nightmares with improved sleep but still not optimal. Past Psychiatric History: History of psychiatric admission; 3 prior admissions SA: hanging, 2021 outpt - did not F/U with referral at discharge from [facility] 07/12. currently no prescriber. h/o PTSD Dx Medication trials: Adderall, Strattera, Effexor ( at a low dose but made him feel weird ) Hospital course: 09/22 Patient shared again about recent history since [facility] admission. He shared that while on [facility], a patient was trying to get him to buy drugs after he discharged...on discharge, patient thought a car following him...next day at the [facility] where patient sometimes stays, there was a person who came up to him, talking about [place] and said something to the effect of if you want to check herself into a mental hospital... so can someone else... Since patient had recently discharged from a psychiatric hospital, he felt that this was very strange, became paranoid that this person new something about him, with suspicious, feeling threatened and had the thought to hurt him; instead, patient self presented Stained Glass Joiner further inquired about history of such feelings. He said sometimes in the community if he starts talking with a stranger he might wonder if the person's following him... He shared of another incident back in July, when he had a Gatorade he was drinking, left it sitting out for a a little bit, came back and then finish the drink, soon after starting to feel very anxious... He went to ED and methamphetamines found in urine. Patient suspicious about this but does not know what else to think. Patient shared about his more distant past, growing up in a very rough neighborhood, having to look over his shoulder just to make sure he was safe which was the norm for everybody he knew. Said otherwise only paranoia he can remembers when he was using cocaine. Currently patient denies feeling paranoid here on unit. 09/23 Patient open up more about paranoid thinking which is daily, throughout the day. On the unit today, a female peer was sharing something with him and patient had the thought that perhaps she was planted , not a real patient but but there just to mess with him. Other such instances on the unit. Patient said he often has the thought that he is in the [place] Show a movie where everyone in the protagonist life is a fake, and actor, in on joke with [place] being the only 1 unaware. He said this happens when he sees a person on the bus, if someone says something to him that he thinks might be too coincidental, he will become suspicious... He does not have an idea of who might be orchestrating this other than that everyone is aware and a part of it accept for him; does not necessarily think that people's intentions are nefarious but rather just to make fun of him. He says he trusts this consumer loan underwriter and social media strategist however and also is usually able to talk himself out of it, telling himself he is just miss-interpreting other people's actions or words... However the concern always lingers. Patient has wondered in the past if he has schizophrenia. Discussed diagnosis and that while part of this experiences could be due to history of trauma and subsequent hypervigilance, it may also be partly due to his mind playing tricks on him. Discussed medications, risks/side effects of antipsychotic medications, including Risperdal (including but not limited to hyperprolactinemia, galactorrhea, gynecomastia, TD, dystonia, metabolic syndrome..). Patient felt that the potential benefit was worth the potential risks and wanted to start a trial of Risperdal. 09/24 continue current dose for now; will consider increasing Risperdal 09/25 Increase to Risperdal 1 mg b.i.d. for continued paranoid delusional thinking; refusing to go back to [facility] at this time, did paranoid delusions, rendering himself homeless 09/26 tolerating increased Risperdal dose though a little tired in the morning; not sure if effective yet; good behavioral and impulse control and appropriate with peers and staff, attending groups and engaged in treatment 09/27 doing better, no paranoid thinking yesterday or today; moving Risperdal all to bedtime; wants to get on Sublocade Impression: In addition to history of depression and PTSD, patient is reporting frequent concerns throughout the day that everyone around him is part of a conspiratorially orchestrated attempt to mess with him... And thus he is being followed or spying on or interacted with specifically to make fun of him or make him fearful. Patient has some insight and says part of him realizes he is just over-reacting, misinterpreting other people and can talk himself out of feeling paranoid; however this concern always lingers. And while likely history of trauma, living in dangerous neighborhoods and subsequent hypervigilance is a component of the etiology, there seems to be an organic psychotic origin as well. -starting patient on low-dose Risperdal -understand the other medications he is on could possibly exacerbate this such as the stimulant medication and Wellbutrin, however he has a long history of ADHD with positive benefit from stimulant medication and Wellbutrin has significantly improved depression; there is no evidence that these medications are either causing or exacerbating psychotic symptoms so will leave for now PLAN: CV Q 15 minute checks Start Suboxone 4/1 mg daily until can get on subacute * wants Sublocade Continue Risperdal change to 2 mg q.h.s.. for continued paranoid delusional thinking Continue prazosin 4mg qhs Continue Amphetamine/Dextroamphetamine 20 mg PO DAILY [facility] Continue Sublocade Continue Bupropion XL 300 mg PO DAILY [facility] Continue Clonidine HCl 0.1 mg PO Q4H PRN; Protocol Continue Fluoxetine HCl 20 mg PO DAILY [facility] Continue Hydroxyzine HCl 50 mg PO TID PRNtient. Signing off at this time. Please re-consult if any acute complaints or issues Patient educated on: diagnosis, medication risk/benefits, substance abuse and therapeutic strategies Informed Consent: understands Reason for continued inpatient stay Substantial Risk for: stable for discharge Time Spent With Patient Time: Total time managing care of this patient today ____ minutes.
[2023-09-27] MEDS: Buprenorphine/Naloxone 4/1 mg FILM 1 FILM SUBLINGUAL (14:01)
[2023-09-27 18:00] VITALS: BP 129/61; PULSE 88; RESP 16
[2023-09-27] MEDS: Prazosin HCL 1 MG CAPSULE 4 MG PO (21:34)
[2023-09-28 08:15] VITALS: BP 100/62; PULSE 81; RESP 16; TEMP 36.4; O2SAT 97
[2023-09-28] MEDS: Dextroamphetamine/Amphetamine XR 10 MG CAP.ER.24H 30 MG PO (08:34)
[2023-09-28] MEDS: Nicotine 21 MG PATCH.TD24 TRANSDERMA (08:34)
[2023-09-28] MEDS: FLUoxetine HCl 10 MG CAPSULE 30 MG PO (08:34)
[2023-09-28] MEDS: Buprenorphine/Naloxone 4/1 mg FILM 1 FILM SUBLINGUAL ×2 (08:34→16:02)
[2023-09-28] MEDS: buPROPion HCl XL 300 MG TAB.ER.24H PO (08:34)
--- NOTE | 2023-09-28 13:34 | HO.PSYCHPN ---
Subjective Subjective Date of Service: 09/28/23 Reason For Visit: UNSPECIFIED DEPRESSIVE DISORDER Interim History: Met with patient; discussed with team Patient still with paranoid thinking; new patient on the unit talking to him, singing at him, patient initially very anxious and thought he was a can spiritual or but then talked himself out of it saying it is just a crazy old man. Overall, patient reports paranoid thinking is not as frequent and he is able to talk himself out of it more quickly however asks for increase in Risperdal. Mental Status Exam Mental Status Exam Narrative: Pt is alert and oriented; behavior is cooperative, friendly and calm; patient is not in distress; dressed in casual attire with unkempt hair but adequate hygiene; mood is described as good and affect congruent; eye contact appropriate; Speech is normal rate, volume and prosody and not pressured; no psychomotor agitation/retardation present; thought process is organized and goal directed; Thought content is still with paranoid thinking, but less so; otherwise pertinent to relevant topics; denies any SI/HI. There is no evidence of perceptual disturbance. Patients insight and judgment fair Diagnostics Vital Signs (24Hr): Vital Signs - 24 hr 09/27/23 18:00 09/28/23 08:15 Temperature 97.6 F Pulse Rate 88 81 Respiratory Rate 16 16 Blood Pressure 129/61 100/62 Pulse Oximetry 97 Oxygen Delivery Method Room Air BMI result Body Mass Index 20.0 Labs 09/20/23 07:15 Medications Medications Current Medications Acetaminophen (Acetaminophen 325 Mg Tablet) 650 mg PO Q6H PRN PRN Reason: Headache/Pain Mild Scale (1-3) Al Hydroxide/Mg Hydroxide (Magnesium Hydrox/Alum Hydrox 30 Ml Oral.Susp) 30 ml PO Q6H PRN PRN Reason: Heartburn/Nausea Amphetamine/Dextroamphetamine (Dextroamphetamine/Amphetamine Xr 10 Mg Cap.Er.24h) 30 mg PO DAILY ON LICENSE OF [facility] Last Admin: 09/28/23 08:34 Dose: 30 mg Buprenorphine/Naloxone (Buprenorphine/Naloxone 4/1 Mg Film) 1 film SUBLINGUAL DAILY@1600 ON LICENSE OF [facility] Stop: 09/28/23 21:00 Buprenorphine/Naloxone (Buprenorphine/Naloxone 8/2 Mg Film) 1 film SUBLINGUAL DAILY ON LICENSE OF [facility] Bupropion HCl (Bupropion Hcl Xl 300 Mg Tab.Er.24h) 300 mg PO DAILY ON LICENSE OF [facility] Last Admin: 09/28/23 08:34 Dose: 300 mg Clonidine HCl (Clonidine Hcl 0.1 Mg Tablet) 0.1 mg PO TID PRN; Protocol PRN Reason: anxiety Last Admin: 09/23/23 14:08 Dose: 0.1 mg Fluoxetine HCl (Fluoxetine Hcl 10 Mg Capsule) 30 mg PO DAILY [facility] Last Admin: 09/28/23 08:34 Dose: 30 mg Hydroxyzine HCl (Hydroxyzine Hcl 25 Mg Tablet) 25 mg PO Q6H PRN PRN Reason: Anxiety Magnesium Hydroxide (Milk Of Magnesia 30 Ml Oral.Susp) 30 ml PO DAILY PRN PRN Reason: Constipation Nicotine (Nicotine 21 Mg Patch.Td24) 21 mg TRANSDERMA DAILY [facility] Last Admin: 09/28/23 08:34 Dose: 21 mg Prazosin HCl (Prazosin Hcl 1 Mg Capsule) 4 mg PO BEDTIME [facility]; Protocol Last Admin: 09/27/23 21:34 Dose: 4 mg Risperidone (Risperidone 3 Mg Tablet) 3 mg PO BEDTIME [facility] Allergies Allergies Allergy/AdvReac Type Severity Reaction Status Date / Time No Known Allergies Allergy Verified 07/02/23 16:55 Assessment & Plan Assessment & Plan (1) Paranoid type delusional disorder: Status: Acute Code(s): F22 - Delusional disorders (2) PTSD (post-traumatic stress disorder): Status: Acute Code(s): F43.10 - Post-traumatic stress disorder, unspecified (3) MDD (major depressive disorder), recurrent severe, without psychosis: Status: Acute Code(s): F33.2 - Major depressive disorder, recurrent severe without psychotic features (4) Opioid use disorder: Status: Acute Code(s): F11.90 - Opioid use, unspecified, uncomplicated Plan Lonny is a 32-year-old white, single, unemployed, man who lives with 2 roommates. This is his 4th psychiatric hospitalization. He was discharged about a week ago and did not have any outpatient appointment scheduled and has historically not followed up with them. She states that he continued to be quite depressed and having suicidal ideations of wanting to hang himself. He has had an episode of hanging in 2021 when others found out and intervened. He denies any major precipitance or changes triggering the current episode. He does have history of opiate abuse/ dependence, clean for 2 years and is on Sublocade 300 mg monthly, last received 08/05/2023 and states that it usually lasts more than month for him and he has not having any cravings. He has been taking his medications though intermittently. Currently he is on Wellbutrin XL 300 mg, prazosin (recently started close) 4 mg. He does not use trazodone much, Adderall 30 mg daily. He denies any side effects. The prazosin has been moderately helpful with his nightmares with improved sleep but still not optimal. Past Psychiatric History: History of psychiatric admission; 3 prior admissions SA: hanging, 2021 outpt - did not F/U with referral at discharge from 07/12. currently no prescriber. h/o PTSD Dx Medication trials: Adderall, Strattera, Effexor ( at a low dose but made him feel weird ) Hospital course: 09/22 Patient shared again about recent history since M3 admission. He shared that while on M3, a patient was trying to get him to buy drugs after he discharged...on discharge, patient thought a car following him...next day at the [facility] where patient sometimes stays, there was a person who came up to him, talking about [place] and said something to the effect of if you want to check herself into a mental hospital... so can someone else... Since patient had recently discharged from a psychiatric hospital, he felt that this was very strange, became paranoid that this person new something about him, with suspicious, feeling threatened and had the thought to hurt him; instead, patient self presented Service Correspondent further inquired about history of such feelings. He said sometimes in the community if he starts talking with a stranger he might wonder if the person's following him... He shared of another incident back in July, when he had a Gatorade he was drinking, left it sitting out for a a little bit, came back and then finish the drink, soon after starting to feel very anxious... He went to ED and methamphetamines found in urine. Patient suspicious about this but does not know what else to think. Patient shared about his more distant past, growing up in a very rough neighborhood, having to look over his shoulder just to make sure he was safe which was the norm for everybody he knew. Said otherwise only paranoia he can remembers when he was using cocaine. Currently patient denies feeling paranoid here on unit. 09/23 Patient open up more about paranoid thinking which is daily, throughout the day. On the unit today, a female peer was sharing something with him and patient had the thought that perhaps she was planted , not a real patient but but there just to mess with him. Other such instances on the unit. Patient said he often has the thought that he is in the [employer] a movie where everyone in the protagonist life is a fake, and actor, in on joke with Los being the only 1 unaware. He said this happens when he sees a person on the bus, if someone says something to him that he thinks might be too coincidental, he will become suspicious... He does not have an idea of who might be orchestrating this other than that everyone is aware and a part of it accept for him; does not necessarily think that people's intentions are nefarious but rather just to make fun of him. He says he trusts this science writer and transition social worker however and also is usually able to talk himself out of it, telling himself he is just miss-interpreting other people's actions or words... However the concern always lingers. Patient has wondered in the past if he has schizophrenia. Discussed diagnosis and that while part of this experiences could be due to history of trauma and subsequent hypervigilance, it may also be partly due to his mind playing tricks on him. Discussed medications, risks/side effects of antipsychotic medications, including Risperdal (including but not limited to hyperprolactinemia, galactorrhea, gynecomastia, TD, dystonia, metabolic syndrome..). Patient felt that the potential benefit was worth the potential risks and wanted to start a trial of Risperdal. 09/24 continue current dose for now; will consider increasing Risperdal 09/25 Increase to Risperdal 1 mg b.i.d. for continued paranoid delusional thinking; refusing to go back to long term at this time, did paranoid delusions, rendering himself homeless 09/26 tolerating increased Risperdal dose though a little tired in the morning; not sure if effective yet; good behavioral and impulse control and appropriate with peers and staff, attending groups and engaged in treatment 09/27 doing better, no paranoid thinking yesterday or today; moving Risperdal all to bedtime; wants to get on Sublocade 09/28 still with paranoid thinking though less so; asked for increasing Risperdal. Impression: In addition to history of depression and PTSD, patient is reporting frequent concerns throughout the day that everyone around him is part of a conspiratorially orchestrated attempt to mess with him... And thus he is being followed or spying on or interacted with specifically to make fun of him or make him fearful. Patient has some insight and says part of him realizes he is just over-reacting, misinterpreting other people and can talk himself out of feeling paranoid; however this concern always lingers. And while likely history of trauma, living in dangerous neighborhoods and subsequent hypervigilance is a component of the etiology, there seems to be an organic psychotic origin as well. -starting patient on low-dose Risperdal -understand the other medications he is on could possibly exacerbate this such as the stimulant medication and Wellbutrin, however he has a long history of ADHD with positive benefit from stimulant medication and Wellbutrin has significantly improved depression; there is no evidence that these medications are either causing or exacerbating psychotic symptoms so will leave for now PLAN: CV Q 15 minute checks Increase to Suboxone 8/2 mg daily until can get on subacute * wants Sublocade Increase to Risperdal change to 3mg q.h.s.. for continued paranoid delusional thinking Continue prazosin 4mg qhs Continue Amphetamine/Dextroamphetamine 20 mg PO DAILY [facility] Continue Sublocade Continue Bupropion XL 300 mg PO DAILY [facility] Continue Clonidine HCl 0.1 mg PO Q4H PRN; Protocol Continue Fluoxetine HCl 20 mg PO DAILY [facility] Continue Hydroxyzine HCl 50 mg PO TID PRNtient. Signing off at this time. Please re-consult if any acute complaints or issues Patient educated on: diagnosis, medication risk/benefits and substance abuse Informed Consent: understands Reason for continued inpatient stay Substantial Risk for: rapid decompensation Time Spent With Patient Time: Total time managing care of this patient today ____ minutes.
[2023-09-28 20:00] VITALS: BP 101/72; PULSE 90; RESP 18; TEMP 36.5; O2SAT 97
[2023-09-28 22:02] VITALS: BP 120/71; PULSE 94; RESP 18
[2023-09-28] MEDS: risperiDONE 3 MG TABLET PO (22:03)
[2023-09-28] MEDS: Prazosin HCL 1 MG CAPSULE 4 MG PO (22:03)
[2023-09-29 08:48] VITALS: BP 110/52; PULSE 84; RESP 16; TEMP 36.2; O2SAT 96
[2023-09-29] MEDS: FLUoxetine HCl 10 MG CAPSULE 30 MG PO (08:49)
[2023-09-29] MEDS: Buprenorphine/Naloxone 8/2 mg FILM 1 FILM SUBLINGUAL (08:49)
[2023-09-29] MEDS: buPROPion HCl XL 300 MG TAB.ER.24H PO (08:49)
[2023-09-29] MEDS: Nicotine 21 MG PATCH.TD24 TRANSDERMA (08:49)
[2023-09-29] MEDS: Dextroamphetamine/Amphetamine XR 10 MG CAP.ER.24H 30 MG PO (08:49)
--- NOTE | 2023-09-29 09:05 | HO.PSYCHPN ---
Subjective Subjective Date of Service: 09/29/23 Reason For Visit: UNSPECIFIED DEPRESSIVE DISORDER Interim History: Met with patient; discussed with team Patient remains with significant paranoid delusions. Today a peer was talking to him about random things and patient began to get very paranoid that this particular peer was sent by a person in the community to watch him on the unit. Groover And Striper Operator inquired further and patient has never met this person in the community, just knows about him. He can not say why he thinks that this community individual would be interested in having patient followed and watched on the unit. He says a part of him knows that this is paranoia but he can not shake the feeling that it is also true. Today patient was not able to talk himself out of it and just went into his room and tried to sleep to avoid the thoughts. Patient shared that when he was 1st at admitted a few months ago, he was not ready to disclose these paranoid delusions, not yet trusting enough to do so. He said this time around they have become so bothersome and are affecting his life so completely that he felt he had no other choice. Groover And Striper Operator agrees that most every aspect of patient's life is being influenced by these paranoid delusions and they are interfering with where he lives, whom he talks to, provider follow-up, work... Patient agreed to go higher on Risperdal to see if it is going to be effective or not; otherwise agrees to changing medication Diagnostics Vital Signs (24Hr): Vital Signs - 24 hr 09/28/23 20:00 09/28/23 22:02 09/29/23 08:48 Temperature 97.7 F 97.2 F Pulse Rate 90 94 84 Respiratory Rate 18 18 16 Blood Pressure 101/72 120/71 110/52 L Pulse Oximetry 97 96 Oxygen Delivery Method Room Air Room Air BMI result Body Mass Index 20.0 Labs 09/20/23 07:15 Medications Medications Current Medications Acetaminophen (Acetaminophen 325 Mg Tablet) 650 mg PO Q6H PRN PRN Reason: Headache/Pain Mild Scale (1-3) Al Hydroxide/Mg Hydroxide (Magnesium Hydrox/Alum Hydrox 30 Ml Oral.Susp) 30 ml PO Q6H PRN PRN Reason: Heartburn/Nausea Amphetamine/Dextroamphetamine (Dextroamphetamine/Amphetamine Xr 10 Mg Cap.Er.24h) 30 mg PO DAILY [facility] Last Admin: 09/29/23 08:49 Dose: 30 mg Buprenorphine/Naloxone (Buprenorphine/Naloxone 8/2 Mg Film) 1 film SUBLINGUAL DAILY [facility] Last Admin: 09/29/23 08:49 Dose: 1 film Bupropion HCl (Bupropion Hcl Xl 300 Mg Tab.Er.24h) 300 mg PO DAILY [facility] Last Admin: 09/29/23 08:49 Dose: 300 mg Clonidine HCl (Clonidine Hcl 0.1 Mg Tablet) 0.1 mg PO TID PRN; Protocol PRN Reason: anxiety Last Admin: 09/23/23 14:08 Dose: 0.1 mg Fluoxetine HCl (Fluoxetine Hcl 10 Mg Capsule) 30 mg PO DAILY [facility] Last Admin: 09/29/23 08:49 Dose: 30 mg Hydroxyzine HCl (Hydroxyzine Hcl 25 Mg Tablet) 25 mg PO Q6H PRN PRN Reason: Anxiety Magnesium Hydroxide (Milk Of Magnesia 30 Ml Oral.Susp) 30 ml PO DAILY PRN PRN Reason: Constipation Nicotine (Nicotine 21 Mg Patch.Td24) 21 mg TRANSDERMA DAILY [facility] Last Admin: 09/29/23 08:49 Dose: 21 mg Prazosin HCl (Prazosin Hcl 1 Mg Capsule) 4 mg PO BEDTIME [facility]; Protocol Last Admin: 09/28/23 22:03 Dose: 4 mg Risperidone (Risperidone 3 Mg Tablet) 3 mg PO BEDTIME [facility] Last Admin: 09/28/23 22:03 Dose: 3 mg Allergies Allergies Allergy/AdvReac Type Severity Reaction Status Date / Time No Known Allergies Allergy Verified 07/02/23 16:55 Assessment & Plan Assessment & Plan (1) Paranoid type delusional disorder: Status: Acute Code(s): F22 - Delusional disorders (2) PTSD (post-traumatic stress disorder): Status: Acute Code(s): F43.10 - Post-traumatic stress disorder, unspecified (3) MDD (major depressive disorder), recurrent severe, without psychosis: Status: Acute Code(s): F33.2 - Major depressive disorder, recurrent severe without psychotic features (4) Opioid use disorder: Status: Acute Code(s): F11.90 - Opioid use, unspecified, uncomplicated Plan Lonny is a 32-year-old white, single, unemployed, man who lives with 2 roommates. This is his 4th psychiatric hospitalization. He was discharged about a week ago and did not have any outpatient appointment scheduled and has historically not followed up with them. She states that he continued to be quite depressed and having suicidal ideations of wanting to hang himself. He has had an episode of hanging in 2021 when others found out and intervened. He denies any major precipitance or changes triggering the current episode. He does have history of opiate abuse/ dependence, clean for 2 years and is on Sublocade 300 mg monthly, last received 08/05/2023 and states that it usually lasts more than month for him and he has not having any cravings. He has been taking his medications though intermittently. Currently he is on Wellbutrin XL 300 mg, prazosin (recently started close) 4 mg. He does not use trazodone much, Adderall 30 mg daily. He denies any side effects. The prazosin has been moderately helpful with his nightmares with improved sleep but still not optimal. Past Psychiatric History: History of psychiatric admission; 3 prior admissions SA: hanging, 2021 outpt - did not F/U with referral at discharge from 07/12. currently no prescriber. h/o PTSD Dx Medication trials: Adderall, Strattera, Effexor ( at a low dose but made him feel weird ) Hospital course: 09/22 Patient shared again about recent history since M3 admission. He shared that while on M3, a patient was trying to get him to buy drugs after he discharged...on discharge, patient thought a car following him...next day at the [facility] where patient sometimes stays, there was a person who came up to him, talking about [place] and said something to the effect of if you want to check herself into a mental hospital... so can someone else... Since patient had recently discharged from a psychiatric hospital, he felt that this was very strange, became paranoid that this person new something about him, with suspicious, feeling threatened and had the thought to hurt him; instead, patient self presented Groover And Striper Operator further inquired about history of such feelings. He said sometimes in the community if he starts talking with a stranger he might wonder if the person's following him... He shared of another incident back in July, when he had a Gatorade he was drinking, left it sitting out for a a little bit, came back and then finish the drink, soon after starting to feel very anxious... He went to ED and methamphetamines found in urine. Patient suspicious about this but does not know what else to think. Patient shared about his more distant past, growing up in a very rough neighborhood, having to look over his shoulder just to make sure he was safe which was the norm for everybody he knew. Said otherwise only paranoia he can remembers when he was using cocaine. Currently patient denies feeling paranoid here on unit. 09/23 Patient open up more about paranoid thinking which is daily, throughout the day. On the unit today, a female peer was sharing something with him and patient had the thought that perhaps she was planted , not a real patient but but there just to mess with him. Other such instances on the unit. Patient said he often has the thought that he is in the [employer] a movie where everyone in the protagonist life is a fake, and actor, in on joke with [place] being the only 1 unaware. He said this happens when he sees a person on the bus, if someone says something to him that he thinks might be too coincidental, he will become suspicious... He does not have an idea of who might be orchestrating this other than that everyone is aware and a part of it accept for him; does not necessarily think that people's intentions are nefarious but rather just to make fun of him. He says he trusts this physician underwriter and social work associate however and also is usually able to talk himself out of it, telling himself he is just miss-interpreting other people's actions or words... However the concern always lingers. Patient has wondered in the past if he has schizophrenia. Discussed diagnosis and that while part of this experiences could be due to history of trauma and subsequent hypervigilance, it may also be partly due to his mind playing tricks on him. Discussed medications, risks/side effects of antipsychotic medications, including Risperdal (including but not limited to hyperprolactinemia, galactorrhea, gynecomastia, TD, dystonia, metabolic syndrome..). Patient felt that the potential benefit was worth the potential risks and wanted to start a trial of Risperdal. 09/24 continue current dose for now; will consider increasing Risperdal 09/25 Increase to Risperdal 1 mg b.i.d. for continued paranoid delusional thinking; refusing to go back to prison at this time, did paranoid delusions, rendering himself homeless 09/26 tolerating increased Risperdal dose though a little tired in the morning; not sure if effective yet; good behavioral and impulse control and appropriate with peers and staff, attending groups and engaged in treatment 09/27 doing better, no paranoid thinking yesterday or today; moving Risperdal all to bedtime; wants to get on Sublocade 09/28 still with paranoid thinking though less so; asked for increasing Risperdal. 09/29Patient remains with significant paranoid delusions. Today a peer was talking to him about random things and patient began to get very paranoid that this particular peer was sent by a person in the community to watch him on the unit. Groover And Striper Operator inquired further and patient has never met this person in the community, just knows about him. He can not say why he thinks that this community individual would be interested in having patient followed and watched on the unit. He says a part of him knows that this is paranoia but he can not shake the feeling that it is also true. Today patient was not able to talk himself out of it and just went into his room and tried to sleep to avoid the thoughts. Patient shared that when he was 1st at admitted a few months ago, he was not ready to disclose these paranoid delusions, not yet trusting enough to do so. He said this time around they have become so bothersome and are affecting his life so completely that he felt he had no other choice. Groover And Striper Operator agrees that most every aspect of patient's life is being influenced by these paranoid delusions and they are interfering with where he lives, whom he talks to, provider follow-up, work... Patient agreed to go higher on Risperdal to see if it is going to be effective or not; otherwise agrees to changing medication Impression: In addition to history of depression and PTSD, patient is reporting frequent concerns throughout the day that everyone around him is part of a conspiratorially orchestrated attempt to mess with him... And thus he is being followed or spying on or interacted with specifically to make fun of him or make him fearful. Patient has some insight and says part of him realizes he is just over-reacting, misinterpreting other people and can talk himself out of feeling paranoid; however this concern always lingers. And while likely history of trauma, living in dangerous neighborhoods and subsequent hypervigilance is a component of the etiology, there seems to be an organic psychotic origin as well. -starting patient on low-dose Risperdal -understand the other medications he is on could possibly exacerbate this such as the stimulant medication and Wellbutrin, however he has a long history of ADHD with positive benefit from stimulant medication and Wellbutrin has significantly improved depression; there is no evidence that these medications are either causing or exacerbating psychotic symptoms so will leave for now PLAN: CV Q 15 minute checks Continue Suboxone 8/2 mg daily until Sublocade Increase to Risperdal change to 4mg q.h.s.. and 1mg Daily Continue prazosin 4mg qhs Continue Amphetamine/Dextroamphetamine 20 mg PO DAILY [facility] Continue Sublocade Continue Bupropion XL 300 mg PO DAILY [facility] Continue Clonidine HCl 0.1 mg PO Q4H PRN; Protocol Continue Fluoxetine HCl 20 mg PO DAILY [facility] Continue Hydroxyzine HCl 50 mg PO TID PRNtient. Signing off at this time. Please re-consult if any acute complaints or issues Patient educated on: diagnosis and medication risk/benefits Informed Consent: understands Reason for continued inpatient stay Substantial Risk for: inability to function Time Spent With Patient Time: Total time managing care of this patient today ____ minutes.
[2023-09-29 18:00] VITALS: BP 115/68; PULSE 84; TEMP 36.9; O2SAT 98
[2023-09-29] MEDS: Prazosin HCL 1 MG CAPSULE 4 MG PO (20:28)
[2023-09-29] MEDS: risperiDONE 2 MG TABLET 4 MG PO (20:28)
[2023-09-29] MEDS: cloNIDine HCL 0.1 MG TABLET PO (20:31)
[2023-09-30 08:10] VITALS: BP 99/54; PULSE 73; RESP 18; TEMP 36.8; O2SAT 97
[2023-09-30] MEDS: FLUoxetine HCl 10 MG CAPSULE 30 MG PO (08:54)
[2023-09-30] MEDS: buPROPion HCl XL 300 MG TAB.ER.24H PO (08:54)
[2023-09-30] MEDS: risperiDONE 1 MG TABLET PO (08:54)
[2023-09-30] MEDS: Dextroamphetamine/Amphetamine XR 10 MG CAP.ER.24H 30 MG PO (08:55)
[2023-09-30] MEDS: Buprenorphine/Naloxone 8/2 mg FILM 1 FILM SUBLINGUAL (08:55)
[2023-09-30] MEDS: Nicotine 21 MG PATCH.TD24 TRANSDERMA (08:55)
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
[2023-09-30] MEDS: OLANZapine 2.5 MG TABLET PO (12:57)
[2023-09-30 22:05] VITALS: BP 112/55; PULSE 83
[2023-09-30] MEDS: Prazosin HCL 1 MG CAPSULE 4 MG PO (22:14)
[2023-09-30] MEDS: cloNIDine HCL 0.1 MG TABLET PO (22:16)
[2023-09-30] MEDS: OLANZapine 5 MG TABLET PO (22:16)
[2023-10-01 08:12] VITALS: BP 98/54; PULSE 76; RESP 16; TEMP 37; O2SAT 97
[2023-10-01] MEDS: FLUoxetine HCl 10 MG CAPSULE 30 MG PO (08:36)
[2023-10-01] MEDS: Buprenorphine/Naloxone 8/2 mg FILM 1 FILM SUBLINGUAL (08:36)
[2023-10-01] MEDS: Dextroamphetamine/Amphetamine XR 10 MG CAP.ER.24H 30 MG PO (08:36)
[2023-10-01] MEDS: buPROPion HCl XL 300 MG TAB.ER.24H PO (08:36)
[2023-10-01] MEDS: Nicotine 21 MG PATCH.TD24 TRANSDERMA (08:36)
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
[2023-10-01 18:00] VITALS: BP 117/70; PULSE 83; TEMP 36.1; O2SAT 98
[2023-10-01] MEDS: OLANZapine 10 MG TABLET PO (22:26)
[2023-10-01] MEDS: Prazosin HCL 1 MG CAPSULE 4 MG PO (22:26)
[2023-10-02 07:00] VITALS: BMI 21.1
[2023-10-02 08:12] VITALS: BP 106/57; PULSE 74; RESP 16; TEMP 37.1; O2SAT 96
[2023-10-02] MEDS: FLUoxetine HCl 10 MG CAPSULE 30 MG PO (08:35)
[2023-10-02] MEDS: Buprenorphine/Naloxone 8/2 mg FILM 1 FILM SUBLINGUAL (08:35)
[2023-10-02] MEDS: buPROPion HCl XL 300 MG TAB.ER.24H PO (08:35)
[2023-10-02] MEDS: Nicotine 21 MG PATCH.TD24 TRANSDERMA (08:35)
[2023-10-02] MEDS: Dextroamphetamine/Amphetamine XR 10 MG CAP.ER.24H 30 MG PO (08:35)
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
[2023-10-02] MEDS: OLANZapine 2.5 MG TABLET PO (12:54)
[2023-10-02 19:20] VITALS: BP 98/63; PULSE 86; RESP 18; TEMP 36.7; O2SAT 95
[2023-10-02] MEDS: Prazosin HCL 1 MG CAPSULE 4 MG PO (20:20)
[2023-10-02] MEDS: OLANZapine 10 MG TABLET PO (20:20)
[2023-10-03 08:15] VITALS: BP 116/55; PULSE 70; RESP 16; TEMP 36.4; O2SAT 97
[2023-10-03] MEDS: buPROPion HCl XL 300 MG TAB.ER.24H PO (08:45)
[2023-10-03] MEDS: FLUoxetine HCl 10 MG CAPSULE 30 MG PO (08:45)
[2023-10-03] MEDS: Dextroamphetamine/Amphetamine XR 10 MG CAP.ER.24H 30 MG PO (08:46)
[2023-10-03] MEDS: Nicotine 21 MG PATCH.TD24 TRANSDERMA (08:46)
[2023-10-03] MEDS: Buprenorphine/Naloxone 8/2 mg FILM 1 FILM SUBLINGUAL (08:46)
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
[2023-10-03] MEDS: OLANZapine 2.5 MG TABLET PO (18:50)
[2023-10-03 20:10] VITALS: BP 117/65; PULSE 88; TEMP 37
[2023-10-03] MEDS: cloNIDine HCL 0.1 MG TABLET PO (20:29)
[2023-10-03] MEDS: Prazosin HCL 1 MG CAPSULE 4 MG PO (20:30)
[2023-10-03] MEDS: OLANZapine 10 MG TABLET PO (20:31)
[2023-10-04 06:00] VITALS: BP 108/58; PULSE 79; RESP 18; TEMP 36.7; O2SAT 96
[2023-10-04] MEDS: buPROPion HCl XL 300 MG TAB.ER.24H PO (08:51)
[2023-10-04] MEDS: FLUoxetine HCl 10 MG CAPSULE 30 MG PO (08:51)
[2023-10-04] MEDS: Nicotine 21 MG PATCH.TD24 TRANSDERMA (08:53)
[2023-10-04] MEDS: Dextroamphetamine/Amphetamine XR 10 MG CAP.ER.24H 30 MG PO (08:54)
[2023-10-04] MEDS: Buprenorphine/Naloxone 8/2 mg FILM 1 FILM SUBLINGUAL (09:12)
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
[2023-10-04 18:00] VITALS: BP 111/58; PULSE 86; RESP 18; TEMP 36.3; O2SAT 96
[2023-10-04] MEDS: Prazosin HCL 1 MG CAPSULE 4 MG PO (22:10)
[2023-10-04] MEDS: OLANZapine 10 MG TABLET PO (22:10)
[2023-10-05] MEDS: Dextroamphetamine/Amphetamine XR 10 MG CAP.ER.24H 30 MG PO (08:34)
[2023-10-05] MEDS: FLUoxetine HCl 10 MG CAPSULE 30 MG PO (08:34)
[2023-10-05] MEDS: buPROPion HCl XL 300 MG TAB.ER.24H PO (08:34)
[2023-10-05] MEDS: Nicotine 21 MG PATCH.TD24 TRANSDERMA (08:41)
[2023-10-05] MEDS: Buprenorphine/Naloxone 8/2 mg FILM 1 FILM SUBLINGUAL (08:58)
[2023-10-05 09:31] VITALS: BP 112/62; PULSE 83; RESP 16; TEMP 36.9; O2SAT 97
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
[2023-10-05 18:00] VITALS: BP 115/73; PULSE 79; RESP 18; TEMP 36; O2SAT 98
[2023-10-05] MEDS: Prazosin HCL 1 MG CAPSULE 4 MG PO (21:26)
[2023-10-05] MEDS: OLANZapine 10 MG TABLET PO (21:27)
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
[2023-10-06 08:07] VITALS: BP 93/63; PULSE 79; RESP 16; TEMP 36.6; O2SAT 97
[2023-10-06] MEDS: Dextroamphetamine/Amphetamine XR 10 MG CAP.ER.24H 30 MG PO (08:58)
[2023-10-06] MEDS: buPROPion HCl XL 300 MG TAB.ER.24H PO (08:59)
[2023-10-06] MEDS: FLUoxetine HCl 10 MG CAPSULE 30 MG PO (08:59)
[2023-10-06] MEDS: Buprenorphine/Naloxone 8/2 mg FILM 1 FILM SUBLINGUAL (08:59)
[2023-10-06] MEDS: Nicotine 21 MG PATCH.TD24 TRANSDERMA (08:59)
[2023-10-06 21:35] VITALS: BP 119/67; PULSE 82; TEMP 36.7
[2023-10-06] MEDS: OLANZapine 10 MG TABLET PO (21:38)
[2023-10-06] MEDS: Prazosin HCL 1 MG CAPSULE 4 MG PO (21:38)
--- NOTE | 2023-10-07 | ECG_ITS ---
Test Reason : QTC Blood Pressure : / mmHG Vent. Rate : 080 BPM Atrial Rate : 080 BPM P-R Int : 152 ms QRS Dur : 102 ms QT Int : 376 ms P-R-T Axes : 062 021 032 degrees QTc Int : 433 ms Normal sinus rhythm Normal ECG When compared with ECG of 06-SEP-2023 23:50, No significant change was found Referred By: Yonatan Fonseca Electronically Signed By:MACKENZIE SIMON MD
[2023-10-07 08:10] VITALS: BP 112/61; PULSE 76; RESP 16; TEMP 36.8; O2SAT 97
[2023-10-07] MEDS: Dextroamphetamine/Amphetamine XR 10 MG CAP.ER.24H 30 MG PO (08:39)
[2023-10-07] MEDS: Nicotine 21 MG PATCH.TD24 TRANSDERMA (08:39)
[2023-10-07] MEDS: buPROPion HCl XL 300 MG TAB.ER.24H PO (08:40)
[2023-10-07] MEDS: FLUoxetine HCl 10 MG CAPSULE 30 MG PO (08:40)
[2023-10-07] MEDS: Buprenorphine/Naloxone 8/2 mg FILM 1 FILM SUBLINGUAL (08:59)
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
--- NOTE | 2023-10-07 18:34 | PC.ADMIT ---
Assumed care of pt at 18:30. PT in kitchen and socializing with peers. Offers no complaints @ this time.
[2023-10-07 18:37] VITALS: BP 129/77; PULSE 83; RESP 16; TEMP 36.9; O2SAT 98
--- NOTE | 2023-10-07 21:55 | P.DS_ITS ---
DS: Providers Provider Date of Service: 10/08/23 Date of admission: 09/19/23 22:00 Date of discharge: 10/08/23 Primary care physician: None Physician Consults: 09/19/23 22:25 Consult to Hospitalist Routine Comment: Consulting Provider: Hospitalist Reason For Exam: Direct admission DS: Diagnosis Discharge Diagnosis (1) Paranoid type delusional disorder: Status: Acute (2) PTSD (post-traumatic stress disorder): Status: Acute (3) MDD (major depressive disorder), recurrent severe, without psychosis: Status: Acute (4) Opioid use disorder: Status: Acute DS: Medications Discharge Medications Home Medications: Home Medications Medication Instructions Recorded Confirmed buprenorphine 300 mg/1.5 mL 300 mg subcut QMONTH 09/07/23 09/20/23 solution,exten.rel.subcutaneous syringe (Sublocade) Previous Rx's Medication Instructions Recorded buprenorphine 8 mg-naloxone 2 mg 1 film sublingual DAILY 1 day #1 ea 10/07/23 sublingual film (Suboxone) bupropion HCl 300 mg 24 hr tablet, 300 mg PO DAILY 30 days #30 tabs 10/07/23 extended release clonidine HCl 0.1 mg tablet 0.1 mg PO TID PRN anxiety 30 days 10/07/23 #90 tabs dextroamphetamine-amphetamine ER 30 mg PO DAILY 30 days #30 caps 10/07/23 30 mg 24hr capsule,extend release fluoxetine 10 mg capsule 30 mg (3 x 10 mg) PO DAILY 30 days 10/07/23 #90 caps nicotine 21 mg/24 hr daily 21 mg transdermal DAILY PRN 10/07/23 transdermal patch smoking cessation 28 days #28 ea olanzapine 10 mg tablet 10 mg PO BEDTIME 30 days #30 tabs 10/07/23 olanzapine 2.5 mg tablet 2.5 mg PO Q4H PRN paranoia 30 days 10/07/23 #60 tabs prazosin 2 mg capsule 4 mg (2 x 2 mg) PO BEDTIME 30 days 10/07/23 #60 caps Mental Status Exam Mental Status Exam Narrative: Pt is alert and oriented; behavior is cooperative, more calm, friendly, patient is not in distress; dressed in casual attire adequately groomed; mood is described as good and affect congruent, calm; eye contact appropriate; Speech is normal rate, volume and prosody and not pressured; no psychomotor agitation/ retardation present; thought process is organized and goal directed; Thought content with being able to challenge paranoid thinking; otherwise pertinent to relevant topics; denies any SI/HI. There is no evidence of perceptual disturbance and denies AVH. Patients insight and judgment fair. DS: Summary Hospital Course Hospital Course: Lonny is a 32-year-old white, single, male with hx of delusional disorder, PtSD, depression, opioid use disorder (in sustained remission), ADHD who presents for worsening paranoid delusions. This is his 4th psychiatric hospitalization. He was discharged about a week ago and did not have any outpatient appointment scheduled and has historically not followed up with them. She states that he continued to be quite depressed and having suicidal ideations of wanting to hang himself. Hx: He has had an episode of hanging in 2021 when others found out and intervened. He denies any major precipitance or changes triggering the current episode. He does have history of opiate abuse/ dependence, clean for 2 years and is on Sublocade 300 mg monthly, last received 08/05/2023 and states that it usually lasts more than month for him and he has not having any cravings. He has been taking his medications though intermittently. Currently he is on Wellbutrin XL 300 mg, prazosin (recently started close) 4 mg. He does not use trazodone much, Adderall 30 mg daily. He denies any side effects. The prazosin has been moderately helpful with his nightmares with improved sleep but still not optimal. Past Psychiatric History: History of psychiatric admission; 3 prior admissions SA: hanging, 2021 outpt - did not F/U with referral at discharge from 07/12. currently no prescriber. h/o PTSD Dx Medication trials: Adderall, Strattera, Effexor ( at a low dose but made him feel weird ) Impression: In addition to history of depression and PTSD, patient is reporting frequent concerns throughout the day that everyone around him is part of a conspiratorially orchestrated attempt to mess with him... And thus he is being followed or spying on or interacted with specifically to make fun of him or make him fearful. Patient has some insight and says part of him realizes he is just over-reacting, misinterpreting other people and can talk himself out of feeling paranoid; however this concern always lingers. And while it is likely that his history of trauma, living in dangerous neighborhoods and subsequent hypervigilance is a component of the etiology, his paranoid delusions seem to be independent. No AVH and behavior and speech remained fully organized so will diagnose with delusional disorder. Hospital course: 09/22 Patient shared again about recent history since M3 admission. He shared that while on M3, a patient was trying to get him to buy drugs after he discharged...on discharge, patient thought a car following him...next day at the [facility] where patient sometimes stays, there was a person who came up to him, talking about [place] and said something to the effect of if you want to check herself into a mental hospital... so can someone else... Since patient had recently discharged from a psychiatric hospital, he felt that this was very strange, became paranoid that this person new something about him, with suspicious, feeling threatened and had the thought to hurt him; instead, patient self presented Human Resource Analyst further inquired about history of such feelings. He said sometimes in the community if he starts talking with a stranger he might wonder if the person's following him... He shared of another incident back in July, when he had a Gatorade he was drinking, left it sitting out for a a little bit, came back and then finish the drink, soon after starting to feel very anxious... He went to ED and methamphetamines found in urine. Patient suspicious about this but does not know what else to think. Patient shared about his more distant past, growing up in a very rough neighborhood, having to look over his shoulder just to make sure he was safe which was the norm for everybody he knew. Said otherwise only paranoia he can remembers when he was using cocaine. Currently patient denies feeling paranoid here on unit. Trial of Risperdal: 09/23 Patient open up more about paranoid thinking which is daily, throughout the day. On the unit today, a female peer was sharing something with him and patient had the thought that perhaps she was planted , not a real patient but but there just to mess with him. Other such instances on the unit. Patient said he often has the thought that he is in the [employer] a movie where everyone in the protagonist life is a fake, and actor, in on joke with [place] being the only 1 unaware. He said this happens when he sees a person on the bus, if someone says something to him that he thinks might be too coincidental, he will become suspicious... He does not have an idea of who might be orchestrating this other than that everyone is aware and a part of it accept for him; does not necessarily think that people's intentions are nefarious but rather just to make fun of him. He says he trusts this engineering writer and social work instructor however and also is usually able to talk himself out of it, telling himself he is just miss-interpreting other people's actions or words... However the concern always lingers. Patient has wondered in the past if he has schizophrenia. Discussed diagnosis and that while part of this experiences could be due to history of trauma and subsequent hypervigilance, it may also be partly due to his mind playing tricks on him. Discussed medications, risks/side effects of antipsychotic medications, including Risperdal (including but not limited to hyperprolactinemia, galactorrhea, gynecomastia, TD, dystonia, metabolic syndrome..). Patient felt that the potential benefit was worth the potential risks and wanted to start a trial of Risperdal. 09/25 Increase to Risperdal however intense paranoid delusions remained, even at higher doses 09/29Patient remains with significant paranoid delusions. Today a peer was talking to him about random things and patient began to get very paranoid that this particular peer was sent by a person in the community to watch him on the unit. Human Resource Analyst inquired further and patient has never met this person in the community, just knows about him. He can not say why he thinks that this community individual would be interested in having patient followed and watched on the unit. He says a part of him knows that this is paranoia but he can not shake the feeling that it is also true. Today patient was not able to talk himself out of it and just went into his room and tried to sleep to avoid the thoughts. Patient shared that when he was 1st at admitted a few months ago, he was not ready to disclose these paranoid delusions, not yet trusting enough to do so. He said this time around they have become so bothersome and are affecting his life so completely that he felt he had no other choice. Human Resource Analyst agrees that most every aspect of patient's life is being influenced by these paranoid delusions and they are interfering with where he lives, whom he talks to, provider follow-up, work... Trial of Zyprexa (Risperdal discontinued) 09/30 Patient remains severely paranoid. Patient explained that later on yesterday evening, he was so scared he would not come out his room and even asked his roommate to keep an eye out to see if anyone was going to come in after him. Patient said he stayed up to 01:00 worried about his safety; he said he thought he saw someone on the roof and wondered if they could get into the unit... Patient said he was about as paranoid as he was just prior to admission. He asked if medications were sufficient and after discussing medication regimen, options agreed to switch to Zyprexa. Human Resource Analyst agrees with plan zyprexa titrated and proved effective, no paranoid thinking With Zyprexa 10 mg q.h.s. patient remained without any paranoid delusions. Sometimes when he would think about discharge a delusional worry would return however he was able to talk himself out of it and it remained resolved. Patient's mood was good and he was without any SI at all. Future oriented and hopeful about continuing his stability. Tolerating Suboxone and plans to get on Sublocade with his pending appointment, the day after discharge. Patient remained in good behavioral and impulse control in the unit, appropriate with peers and staff and engaged in treatment. He is not in imminent risk for harm to self or others and appropriate to return to the community for treatment. Time spent discussing smoking cessation with patient: 3 to 10 minutes Status at Discharge Functional status at discharge: independent ambulation Overall status at discharge: patient is back to baseline Time Spent with Patient Time attestation: Total time managing care of this patient today ____ minutes. Time spent: Less than 30 minutes Discharge Plan Discharge Anticipated Discharge Date/Time: 10/08/23 11:30 Patient Disposition: Home, Self-Care Discharge Diagnosis: Delusional disorder Referrals: [facility] [Other] - 10/08/23 1:00 pm (Walk in for same day appointment. Please bring your discharge paperwork and let them know you have recently discharged from an in patient admission. ) [facility] Sublocade Appt [Other] - 10/09/23 11:00 am [facility] [Other] - 1 Week Suspect Artist Jeff Lainez [Other] - 1 Week Ebenezer Amin MD [Physician] - 1 Week (office will call pt. with follow-up appointment.) Discharge Medications: New olanzapine 10 mg Tablet 10 mg PO BEDTIME 30 Days Qty: 30 0RF olanzapine 2.5 mg Tablet 2.5 mg PO Q4H PRN (Reason: paranoia) 30 Days Qty: 60 0RF buprenorphine-naloxone [Suboxone] 8-2 mg Film 1 film sublingual DAILY 1 Days Qty: 1 0RF Continued Sublocade 300 mg/1.5 mL Solution, Extended Rel Syringe 300 mg SUBCUT QMONTH clonidine HCl 0.1 mg tablet 0.1 mg PO TID PRN (Reason: anxiety) 30 Days Qty: 90 0RF nicotine 21 mg/24 hr Patch 24 Hour 21 mg transdermal DAILY PRN (Reason: smoking cessation) 28 Days Qty: 28 0RF fluoxetine 10 mg Capsule 30 mg PO DAILY 30 Days Qty: 90 0RF dextroamphetamine-amphetamine 30 mg capsule,extended release 24hr 30 mg PO DAILY 30 Days Qty: 30 0RF Rx Instructions: Partial Fill upon patient request. prazosin 2 mg capsule 4 mg PO BEDTIME 30 Days Qty: 60 0RF bupropion HCl 300 mg Tablet Extended Release 24 Hr 300 mg PO DAILY 30 Days Qty: 30 0RF Discontinued hydroxyzine pamoate 50 mg Capsule 50 mg PO TID PRN (Reason: Anxiety) 30 Days Qty: 60 1RF trazodone 50 mg Tablet 50 mg PO BEDTIME PRN (Reason: Insomnia) omeprazole 20 mg Capsule,Delayed Release(Dr/Ec) 20 mg PO DAILY@0630 Discharge Orders: Discharge Order (Routine); Ordered 10/08/23 Ordered By: Yonatan Fonseca Diet: Regular diet Activity on Discharge: As tolerated Stand Alone Forms: Patient Portal Discharge page, Community Support Care Plan Goals: Maintain mood and safe behaviors Take medications as prescribed Continue to pursue sobriety Practice coping skills Continue with outpatient providers and reach out to them as needed Health Concerns: Mood stability and behaviors Sobriety Plan of Treatment: Follow up with your PCP, psychiatric provider and other outpatient providers regarding above concerns Take medications as prescribed Assessment: Risk assessment at time of discharge:? Patient was interviewed prior to discharge and found to be fully oriented and without any SI or HI. Patient has improved insight and judgment and wants to continue treatment. Patient is not in imminent risk of harm to self or others and has a safety plan that includes presenting to the closest ER or calling 911 if feeling unsafe.? Patient has been observed closely by nursing and unit staff throughout admission; patient has not engaged in any behaviors that suggest dangerousness to self or others and has demonstrated appropriate behaviors and impulse control Discharge Date/Time: 10/08/23 11:25
[2023-10-07] MEDS: OLANZapine 10 MG TABLET PO (22:19)
[2023-10-07] MEDS: Prazosin HCL 1 MG CAPSULE 4 MG PO (22:19)
[2023-10-08 08:01] VITALS: BP 112/60; PULSE 64; RESP 16; TEMP 36.4; O2SAT 97
[2023-10-08] MEDS: Nicotine 21 MG PATCH.TD24 TRANSDERMA (08:48)
[2023-10-08] MEDS: Dextroamphetamine/Amphetamine XR 10 MG CAP.ER.24H 30 MG PO (08:48)
[2023-10-08] MEDS: buPROPion HCl XL 300 MG TAB.ER.24H PO (08:48)
[2023-10-08] MEDS: FLUoxetine HCl 10 MG CAPSULE 30 MG PO (08:49)
[2023-10-08] MEDS: Buprenorphine/Naloxone 8/2 mg FILM 1 FILM SUBLINGUAL (09:14)
[2023-10-08] MEDS: cloNIDine HCL 0.1 MG TABLET PO (09:16)
[2023-10-08] MEDS: Naloxone HCl Nasal TAKE HOME 4 MG SPRAY 8 MG NOSTRILALT (09:40)
== END 2023-10-08 11:25 | disposition home or self-care (01) | DRG 751 ==
PROVIDERS: Psychiatry & Neurology Psychiatry; Admitting Provider Psychiatry & Neurology Psychiatry; Visit Provider Psychiatry & Neurology Psychiatry
DX: F33.2 Major depressive disorder, recurrent severe without psychotic features (principal); R45.851 Suicidal ideations; F22 Delusional disorders; F90.9 Attention-deficit hyperactivity disorder, unspecified type; F11.20 Opioid dependence, uncomplicated; F17.210 Nicotine dependence, cigarettes, uncomplicated; F43.10 Post-traumatic stress disorder, unspecified; Z71.6 Tobacco abuse counseling; Z91.51 Personal history of suicidal behavior; Z79.899 Other long term (current) drug therapy
CPT/HCPCS: 36415; 80053; 80061; 93005

== ENCOUNTER 2023-09-19 22:00 | Outpatient (BNV) | payer OTHER, SELFPAY | END 2023-10-07 13:02 | PROVIDERS: Admitting Provider Psychiatry & Neurology Psychiatry; Visit Provider Internal Medicine Cardiovascular Disease | DX: I45.81 Long QT syndrome (principal) | CPT/HCPCS: 93010 ==

== ENCOUNTER → 2023-09-19 22:00 | Outpatient (BNV) | payer MEDICAID, SELFPAY | PROVIDERS: Admitting Provider Psychiatry & Neurology Psychiatry; Visit Provider Student in an Organized Health Care Education/Training Program | DX: Z00.8 Encounter for other general examination (principal) | CPT/HCPCS: 99222 ==

== ENCOUNTER → 2023-09-19 22:00 | Outpatient (BNV) | payer OTHER, SELFPAY | PROVIDERS: Admitting Provider Psychiatry & Neurology Psychiatry; Visit Provider Psychiatry & Neurology Psychiatry | DX: F22 Delusional disorders (principal); F33.2 Major depressive disorder, recurrent severe without psychotic features; F11.90 Opioid use, unspecified, uncomplicated; F43.11 Post-traumatic stress disorder, acute | CPT/HCPCS: 99231; 99232 ==

== ENCOUNTER 2023-11-08 20:12 | Inpatient (IN) | payer OTHER, SELFPAY ==
[2023-11-08 20:24] VITALS: BP 106/60; BP 118/76; PULSE 65; PULSE 82; RESP 18; TEMP 37.3; O2SAT 98; O2SAT 99; BMI 22.4
[2023-11-08 20:34] LABS: MANUAL DIFF FLAG NO
[2023-11-08 20:37] LABS: Basophils Absolute Auto 0.1 X10*3/uL (0.0-0.2); Basophils Percent Auto 0.6 % (0-2); Eosinophils Absolute Auto 0.3 X10*3/uL (0.0-0.4); Eosinophils Percent Auto 3.2 % (0-4); Hematocrit 39.8 % (42.0-52.0); Hemoglobin 13.3 g/dl (14.0-18.0); Imm Gran Abs Auto 0.02 X10*3/uL (0.00-0.03); Imm Gran Pct Auto 0.2 % (0.0-0.4); Lymphocytes Absolute Auto 1.9 X10*3/uL (1.2-4.9); Lymphocytes Percent Auto 19.5 % (20-40); Mean Corpuscular HGB Conc 33.4 g/dl (31.0-36.0); Mean Corpuscular Hemoglobin 29.4 pg (27.0-33.0); Mean Corpuscular Volume 87.9 fL (80.0-98.0); Monocytes Absolute Auto 0.5 X10*3/uL (0.1-1.2); Monocytes Percent Auto 5.2 % (2-11); Neutrophils Absolute Auto 6.8 x10*3/uL (2.0-8.3); Neutrophils Percent Auto 71.3 % (45-73); Platelet Count 329 X10*3/uL (160-400); Red Blood Count 4.53 X10*6/uL (4.60-5.80); Red Cell Distribution Width 13.7 % (11.0-16.0); White Blood Count 9.6 X10*3/uL (4.8-10.8)
[2023-11-08 21:00] LABS: Alanine Aminotransferase 34 U/L (0-40); Albumin Level 4.2 g/dL (3.5-5.0); Alkaline Phosphatase 92 U/L (39-117); Anion Gap 16 (12-20); Aspartate Amino Transferase 25 U/L (5-37); Bilirubin Total 0.3 mg/dL (0.0-1.0); Blood Urea Nitrogen 14 mg/dL (9-16); Calcium 9.6 mg/dL (8.4-10.2); Carbon Dioxide 31 mmol/L (22-29); Chloride 103 mmol/L (96-108); Creatinine Clr Calc Pharmacy 111.1; Estimated Glomerular Filt Rate > 60; Ethanol < 10 mg/dL; Glucose Random 96 mg/dL (60-115); Potassium 4.5 mmol/L (3.3-5.1); Sodium 145 mmol/L (135-145); Total Protein 7.7 g/dL (6.5-8.0)
[2023-11-08 21:03] LABS: Amphetamine Screen Urine Not Detected (Not Detect); Barbiturates, Urine Not Detected (Not Detect); Benzodiazepines Screen Urine Not Detected (Not Detect); Cannabinoid Screen Urine POSITIVE (Not Detect); Cocaine Screen Urine POSITIVE (Not Detect); Fentanyl, urine POSITIVE (Not Detect); Opiate Screen Urine POSITIVE (Not Detect); Phencyclidine Screen Urine Not Detected (Not Detect)
[2023-11-08 21:12] LABS: Acetaminophen LAB < 3 mcg/mL (<30); Salicylate < 5.0 mg/dL (15-30)
--- NOTE | 2023-11-08 23:03 | ED_ITS ---
HPI - Psych General Chief Complaint: Psychiatric Symptoms Stated Complaint: crises Time Seen by Provider: 11/08/23 22:22 Source: patient Mode of arrival: ambulatory Limitations: no limitations History of Present Illness HPI Narrative: Patient with paranoid delusional disorder PTSD depression patient was at friend's house got verbal conflict with the person started feeling homicidal still feels same history of same in the past with admissions Related Data Home Medications Medication Instructions Recorded Confirmed buprenorphine 300 mg/1.5 mL 300 mg subcut QMONTH 09/07/23 09/20/23 solution,exten.rel.subcutaneous syringe (Sublocade) Previous Rx's Medication Instructions Recorded buprenorphine 8 mg-naloxone 2 mg 1 film sublingual DAILY 1 day #1 ea 10/07/23 sublingual film (Suboxone) bupropion HCl 300 mg 24 hr tablet, 300 mg PO DAILY 30 days #30 tabs 10/07/23 extended release clonidine HCl 0.1 mg tablet 0.1 mg PO TID PRN anxiety 30 days 10/07/23 #90 tabs dextroamphetamine-amphetamine ER 30 mg PO DAILY 30 days #30 caps 10/07/23 30 mg 24hr capsule,extend release fluoxetine 10 mg capsule 30 mg (3 x 10 mg) PO DAILY 30 days 10/07/23 #90 caps nicotine 21 mg/24 hr daily 21 mg transdermal DAILY PRN 10/07/23 transdermal patch smoking cessation 28 days #28 ea olanzapine 10 mg tablet 10 mg PO BEDTIME 30 days #30 tabs 10/07/23 olanzapine 2.5 mg tablet 2.5 mg PO Q4H PRN paranoia 30 days 10/07/23 #60 tabs prazosin 2 mg capsule 4 mg (2 x 2 mg) PO BEDTIME 30 days 10/07/23 #60 caps Allergies Allergy/AdvReac Type Severity Reaction Status Date / Time No Known Allergies Allergy Verified 07/02/23 16:55 Review of Systems 2 Review of Systems: Yes all other systems are reviewed and are negative PMFSH Past Medical History Medical History Paranoid type delusional disorder Opioid use disorder PTSD (post-traumatic stress disorder) MDD (major depressive disorder), recurrent severe, without psychosis Social History Social History Household Members: Other Household Members Other:: two room mates Housing: Apartment Do you presently have visiting nurse or other home services: No Patient Tobacco Use Status: Current everyday Tobacco user Tobacco use type: Cigarette Cigarette Packs Per Day: 0.25 Cigarettes Per Day: 1 e-Cigarette/Vaping Use: Currently Using Second Hand Smoke Exposure: No Substance Use Type: Crack/Cocaine, Marijuana and Opiates Advance Directives: No Advance Directives Information Provided: No service: No Sexual orientation: Straight/Heterosexual Physical Exam 2 Vital Signs: Vital Signs: Last Vital Signs Temp 99.1 F 11/08/23 20:24 Pulse 65 11/08/23 20:24 Resp 18 11/08/23 20:24 BP 106/60 11/08/23 20:24 Pulse Ox 99 11/08/23 20:24 O2 Del Method Room Air 11/08/23 20:24 BMI result Body Mass Index 22.4 Appearance: Alert. Oriented X3. No acute distress. Eyes: PERRLA, No Nystagmus ENT: Pharynx normal. Oral Mucosa moist Neck: Normal inspection. Neck supple. CVS: Normal heart rate and rhythm. Pulses normal. Respiratory: No respiratory distress. Equal air entry bilateral, Abdomen: Soft and nontender. Bowel sounds are present, Skin: Skin warm and dry. Normal skin color. Normal skin turgor. psych: Feels homicidal no SI no delusions or hallucination Extremities: No lower extremity edema. No calf tenderness Neuro: Oriented X 3. No motor deficit. No sensory deficit.No cerebellar signs , cranial nerves II-XII intact Medical Decision Making Medical Decision Making [facility] Narrative: Patient with paranoid type delusional disorder PTSD depression with homicidal ideation pending care team evaluation Lab Data [facility] Lab Attestation statement: I reviewed the patient's lab results. 11/08/23 20:29 11/08/23 20:29 Labs: Lab Results 11/08/23 11/08/23 Range/Units 20:29 20:36 WBC 9.6 (4.8-10.8) X10*3/uL RBC 4.53 L (4.60-5.80) X10*6/uL Hgb 13.3 L (14.0-18.0) g/dl Hct 39.8 L (42.0-52.0) % MCV 87.9 (80.0-98.0) fL MCH 29.4 (27.0-33.0) pg MCHC 33.4 (31.0-36.0) g/dl RDW 13.7 (11.0-16.0) % Plt Count 329 (160-400) X10*3/uL MPV 9.0 L (9.4-12.4) fL Immature Gran % (Auto) 0.2 (0.0-0.4) % Neut % (Auto) 71.3 (45-73) % Lymph % (Auto) 19.5 L (20-40) % [place] % (Auto) 5.2 (2-11) % Eos % (Auto) 3.2 (0-4) % Baso % (Auto) 0.6 (0-2) % Lymph # (Auto) 1.9 (1.2-4.9) X10*3/uL [place] # (Auto) 0.5 (0.1-1.2) X10*3/uL Eos # (Auto) 0.3 (0.0-0.4) X10*3/uL Baso # (Auto) 0.1 (0.0-0.2) X10*3/uL Abs Immat Gran (auto) 0.02 (0.00-0.03) X10*3/uL Absolute Neuts (auto) 6.8 (2.0-8.3) x10*3/uL Absolute Nucleated RBC 0.000 (0.0-0.012) X10*3/uL Nucleated RBC % (auto) 0.0 (0.0-0.2) /100WBC Sodium 145 (135-145) mmol/L Potassium 4.5 (3.3-5.1) mmol/L Chloride 103 (96-108) mmol/L Carbon Dioxide 31 H (22-29) mmol/L Anion Gap 16 (12-20) BUN 14 (9-16) mg/dL Creatinine 1.05 (0.5-1.4) mg/dL Estim Creat Clear Calc 111.1 Estimated GFR > 60 Random Glucose 96 (60-115) mg/dL Calcium 9.6 (8.4-10.2) mg/dL Total Bilirubin 0.3 (0.0-1.0) mg/dL AST 25 (5-37) U/L ALT 34 (0-40) U/L Alkaline Phosphatase 92 (39-117) U/L Total Protein 7.7 (6.5-8.0) g/dL Albumin 4.2 (3.5-5.0) g/dL Salicylates < 5.0 L (15-30) mg/dL Urine Opiates Screen POSITIVE H (Not Detect) Urine Fentanyl Screen POSITIVE H (Not Detect) Acetaminophen < 3 (<30) mcg/mL Ur Barbiturates Screen Not Detected (Not Detect) Ur Phencyclidine Scrn Not Detected (Not Detect) Ur Amphetamines Screen Not Detected (Not Detect) U Benzodiazepines Scrn Not Detected (Not Detect) Urine Cocaine Screen POSITIVE H (Not Detect) U Marijuana (THC) Screen POSITIVE H (Not Detect) Ethyl Alcohol < 10 mg/dL Discharge Plan Discharge Clinical Impression: MDD (major depressive disorder), recurrent severe, without psychosis, Paranoid type delusional disorder, Homicidal behavior Patient Disposition: Still a Patient Prescriptions: No Action Sublocade 300 mg/1.5 mL Solution, Extended Rel Syringe 300 mg SUBCUT QMONTH olanzapine 10 mg Tablet 10 mg PO BEDTIME 30 Days Qty: 30 0RF clonidine HCl 0.1 mg tablet 0.1 mg PO TID PRN (Reason: anxiety) 30 Days Qty: 90 0RF nicotine 21 mg/24 hr Patch 24 Hour 21 mg transdermal DAILY PRN (Reason: smoking cessation) 28 Days Qty: 28 0RF fluoxetine 10 mg Capsule 30 mg PO DAILY 30 Days Qty: 90 0RF dextroamphetamine-amphetamine 30 mg capsule,extended release 24hr 30 mg PO DAILY 30 Days Qty: 30 0RF Rx Instructions: Partial Fill upon patient request. prazosin 2 mg capsule 4 mg PO BEDTIME 30 Days Qty: 60 0RF bupropion HCl 300 mg Tablet Extended Release 24 Hr 300 mg PO DAILY 30 Days Qty: 30 0RF olanzapine 2.5 mg Tablet 2.5 mg PO Q4H PRN (Reason: paranoia) 30 Days Qty: 60 0RF buprenorphine-naloxone [Suboxone] 8-2 mg Film 1 film sublingual DAILY 1 Days Qty: 1 0RF Interventions: [place]-Suicide Risk Severity Scale Last Done: 11/09/23 03:18
[2023-11-09 17:22] VITALS: BP 94/56; PULSE 65; RESP 17; TEMP 36.5; O2SAT 97
--- NOTE | 2023-11-09 18:41 | PC.NURSE ---
Patient has been calm quiet and cooperative all day. Patient is an every day smoker requested a nicotine patch Tank [facility] notified. Awaiting order.
--- NOTE | 2023-11-09 20:46 | MHC.EDTECH ---
this tech resumed care at 1900. PT given some snacks and is resting quietly in bed.
[2023-11-09 22:00] VITALS: BP 95/60; PULSE 61; RESP 16; TEMP 36.8; O2SAT 98
--- NOTE | 2023-11-09 22:01 | PHA.MEDREC ---
Pharmacy Consult ? Medication Reconciliation Pharmacy has completed the medication reconciliation. List sent from [facility]
[2023-11-09] MEDS: risperiDONE 2 MG TABLET PO (22:32)
[2023-11-09] MEDS: Prazosin HCL 1 MG CAPSULE 4 MG PO (22:32)
[2023-11-09] MEDS: cloNIDine HCL 0.1 MG TABLET PO (22:32)
--- NOTE | 2023-11-10 | ECG_ITS ---
Test Reason : MEDICAL CLEARANCE Blood Pressure : / mmHG Vent. Rate : 067 BPM Atrial Rate : 067 BPM P-R Int : 150 ms QRS Dur : 100 ms QT Int : 402 ms P-R-T Axes : 045 027 032 degrees QTc Int : 424 ms Normal sinus rhythm RSR' or QR pattern in V1 suggests right ventricular conduction delay Borderline ECG When compared with ECG of 07-OCT-2023 13:02, RSR' pattern in V1 is now Present Referred By: Generic ED Physician Electronically Signed By:Maldonado Rojas
--- NOTE | 2023-11-10 04:29 | PC.NURSE ---
Pt has been asleep for the majority of the night. No complaints at this time. Plan is for pt to be admitted inpatient.
[2023-11-10 08:12] VITALS: BP 85/50; PULSE 65; RESP 18; TEMP 36.7; O2SAT 98
[2023-11-10] MEDS: risperiDONE 1 MG TABLET PO (08:25)
[2023-11-10] MEDS: FLUoxetine HCl 20 MG CAPSULE PO (08:25)
[2023-11-10] MEDS: Dextroamphetamine/Amphetamine XR 10 MG CAP.ER.24H 30 MG PO (08:25)
[2023-11-10] MEDS: buPROPion HCl XL 150 MG TAB.ER.24H 450 MG PO (08:25)
--- NOTE | 2023-11-10 08:42 | PC.NURSE ---
pt resting comfortably in no apparent distress at this time. vss and up to date aside from being slightly hypotensive. according to pt's past vitals, pt seems to remain in the same BP range since coming to the ED. patient medicated per provider order. ekg performed by tech. pt aware he needs urine in order to be medically cleared prior to being admitted to psychiatric unit. pt provided w/ coffee per pt's request. plan of care ongoing.
[2023-11-10 09:14] LABS: Appearance Urine Clear; Color Urine Dark Yellow; Glucose Urine UA Negative (Negative); Leukocyte Esterase Urine Negative (Negative); Nitrite Urine Negative (Negative); Urine Blood Negative (Negative); Urine Ketones Trace mg/dL (Negative); Urine Protein Negative (Neg-Trace)
--- NOTE | 2023-11-10 09:33 | PC.NURSE ---
covid swab obtained/sent to lab.
[2023-11-10 09:49] LABS: COVID-19 Test Negative (Negative); IDNOW Serial# 08D9AD1C
--- NOTE | 2023-11-10 13:50 | PC.NURSE ---
report given to VANESSA Wheeler on M3 at this time.
--- NOTE | 2023-11-10 14:01 | PC.NURSE ---
pt being transported to w/ tech and security at this time. pt's belongings returned to pt.
[2023-11-10 14:14] VITALS: BMI 22.3
[2023-11-10] MEDS: Nicotine 21 MG PATCH.TD24 TRANSDERMA (15:56)
--- NOTE | 2023-11-10 18:50 | PC.NURSE ---
Lonny was admitted to [facility] at 1400 [facility] [place] for treatment of MDD and Anxiety disorder Pt reports he found out today that his roommate is a pedophile and he became homicidal toward the roommate, On arrival to M3 pt is alert, fully oriented, cooperative with safety search and admission process. Mood is depressed. Affect is anxious. He denies hallucinations of any kind and does not appear overtly psychotic. Thought process is organized. Speech is normal rate, rhythm and prosody Thought Process linear. He denies ideation, plan or intent to harm self. He confirms that he is homicidal toward his roommate. Appetite is good. Sleep is good. Focus is fair. He denies using substances but his tox screen is positive for fentanyl, opiates and THC. He denies medical issues and denies physical complaint. He is on q 15 minute safety checks.
[2023-11-10] MEDS: risperiDONE 2 MG TABLET PO (22:24)
[2023-11-10] MEDS: Prazosin HCL 1 MG CAPSULE 4 MG PO (22:24)
[2023-11-10 22:27] VITALS: BP 106/66; PULSE 73; RESP 16; TEMP 36.4; O2SAT 97
[2023-11-11 08:12] VITALS: BP 99/55; PULSE 73; RESP 18; TEMP 35.3; O2SAT 96
[2023-11-11] MEDS: buPROPion HCl XL 150 MG TAB.ER.24H 450 MG PO (08:29)
[2023-11-11] MEDS: Nicotine 21 MG PATCH.TD24 TRANSDERMA (08:29)
[2023-11-11] MEDS: FLUoxetine HCl 20 MG CAPSULE PO (08:29)
[2023-11-11] MEDS: risperiDONE 1 MG TABLET PO (08:29)
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
[2023-11-11] MEDS: Buprenorphine/Naloxone 8/2 mg FILM 1 FILM SUBLINGUAL (12:04)
[2023-11-11] MEDS: Acetaminophen 325 MG TABLET 650 MG PO (18:36)
[2023-11-11] MEDS: risperiDONE 2 MG TABLET PO (21:49)
[2023-11-11] MEDS: Prazosin HCL 1 MG CAPSULE 4 MG PO (21:49)
[2023-11-11 21:52] VITALS: BP 121/72; PULSE 79; RESP 14; TEMP 37; O2SAT 98
[2023-11-12 07:38] VITALS: BP 102/66; PULSE 79; RESP 16; TEMP 36.1; O2SAT 97
[2023-11-12] MEDS: risperiDONE 1 MG TABLET PO (08:47)
[2023-11-12] MEDS: buPROPion HCl XL 150 MG TAB.ER.24H 450 MG PO (08:47)
[2023-11-12] MEDS: Nicotine 21 MG PATCH.TD24 TRANSDERMA (08:48)
[2023-11-12] MEDS: Buprenorphine/Naloxone 8/2 mg FILM 1 FILM SUBLINGUAL (08:48)
[2023-11-12] MEDS: FLUoxetine HCl 20 MG CAPSULE PO (08:48)
--- NOTE | 2023-11-12 13:49 | HO.PSYCHPN ---
Subjective Subjective Date of Service: 11/12/23 Reason For Visit: HI Interim History: sleeping. states he can return to his apartment this week. no complaints or requests otherwise. per staff, denies dep/anx. taking suboxone. decreased HI. can return to apartment soon. attended 1 group. slept 7 hours. Mental Status Exam Mental Status Exam Narrative: thin, calm, cooperative, engaged. adequately dressed and disheveled in street clothes. no PMA/PMR. speech nml amount, nml rate, loudness, tone, latency. thoughts linear and logical. affect constricted, normo-intense, non-labile. mood good. no SI/HI/AVH expressed. Diagnostics Vital Signs (24Hr): Vital Signs - 24 hr 11/11/23 21:52 11/12/23 07:38 Temperature 98.6 F 96.9 F Pulse Rate 79 79 Respiratory Rate 14 16 Blood Pressure 121/72 102/66 Pulse Oximetry 98 97 Oxygen Delivery Method Room Air Room Air BMI result Body Mass Index 22.3 Labs 11/08/23 20:29 11/08/23 20:29 Medications Medications Current Medications Acetaminophen (Acetaminophen 325 Mg Tablet) 650 mg PO Q6H PRN PRN Reason: Headache/Pain Mild Scale (1-3) Last Admin: 11/11/23 18:36 Dose: 650 mg Al Hydroxide/Mg Hydroxide (Magnesium Hydrox/Alum Hydrox 30 Ml Oral.Susp) 30 ml PO Q6H PRN PRN Reason: Heartburn/Nausea Buprenorphine/Naloxone (Buprenorphine/Naloxone 8/2 Mg Film) 1 film SUBLINGUAL DAILY [facility] Last Admin: 11/12/23 08:48 Dose: 1 film Bupropion HCl (Bupropion Hcl Xl 150 Mg Tab.Er.24h) 450 mg PO DAILY [facility] Last Admin: 11/12/23 08:47 Dose: 450 mg Clonidine HCl (Clonidine Hcl 0.1 Mg Tablet) 0.1 mg PO TID PRN; Protocol PRN Reason: anxiety Last Admin: 11/09/23 22:32 Dose: 0.1 mg Fluoxetine HCl (Fluoxetine Hcl 20 Mg Capsule) 20 mg PO DAILY [facility] Last Admin: 11/12/23 08:48 Dose: 20 mg Hydroxyzine HCl (Hydroxyzine Hcl 25 Mg Tablet) 25 mg PO Q6H PRN PRN Reason: Anxiety Magnesium Hydroxide (Milk Of Magnesia 30 Ml Oral.Susp) 30 ml PO DAILY PRN PRN Reason: Constipation Nicotine (Nicotine 21 Mg Patch.Td24) 21 mg TRANSDERMA DAILY [facility] Last Admin: 11/12/23 08:48 Dose: 21 mg Nicotine Polacrilex (Nicotine Polacrilex 2 Mg Gum) 4 mg BUCCAL Q2H PRN PRN Reason: Nicotine Cravings Prazosin HCl (Prazosin Hcl 1 Mg Capsule) 4 mg PO BEDTIME [facility]; Protocol Last Admin: 11/11/23 21:49 Dose: 4 mg Risperidone (Risperidone 1 Mg Tablet) 1 mg PO DAILY [facility] Last Admin: 11/12/23 08:47 Dose: 1 mg Risperidone (Risperidone 2 Mg Tablet) 2 mg PO BEDTIME [facility] Last Admin: 11/11/23 21:49 Dose: 2 mg Trazodone HCl (Trazodone Hcl 50 Mg Tablet) 50 mg PO BEDTIME MRX1 PRN PRN Reason: Insomnia Allergies Allergies Allergy/AdvReac Type Severity Reaction Status Date / Time No Known Allergies Allergy Verified 07/02/23 16:55 Assessment & Plan Assessment & Plan (1) Opioid use disorder: Status: Acute Code(s): F11.90 - Opioid use, unspecified, uncomplicated (2) PTSD (post-traumatic stress disorder): Status: Acute Code(s): F43.10 - Post-traumatic stress disorder, unspecified (3) Cocaine use disorder: Status: Acute Code(s): F14.10 - Cocaine abuse, uncomplicated Plan 11/10: restart home meds aside from stimulant (utox stimulant neg, h/o psychotic Sx and on anti-psychotic, utox cocaine POS). SL suboxone until discharge when pt can get sublocade shot. referral for CSS versus return to own apartment in short order. 11/11: stable, euthymic, no HI. can return to apartment this week. plan for friday discharge. Reason for continued inpatient stay Substantial Risk for: inability to function and rapid decompensation Time Spent With Patient Time: Total time managing care of this patient today ____ minutes.
[2023-11-12] MEDS: Acetaminophen 325 MG TABLET 650 MG PO (15:40)
[2023-11-12 19:50] VITALS: BP 120/64; PULSE 77; TEMP 36.1; O2SAT 96
[2023-11-12] MEDS: risperiDONE 2 MG TABLET PO (21:12)
[2023-11-12] MEDS: Ibuprofen 600 MG TABLET PO (21:12)
[2023-11-12] MEDS: Prazosin HCL 1 MG CAPSULE 4 MG PO (21:12)
[2023-11-13 08:36] VITALS: BP 109/64; PULSE 67; RESP 18; TEMP 36.1; O2SAT 98
[2023-11-13] MEDS: FLUoxetine HCl 20 MG CAPSULE PO (08:48)
[2023-11-13] MEDS: risperiDONE 1 MG TABLET PO (08:48)
[2023-11-13] MEDS: buPROPion HCl XL 150 MG TAB.ER.24H 450 MG PO (08:48)
[2023-11-13] MEDS: Buprenorphine/Naloxone 8/2 mg FILM 1 FILM SUBLINGUAL (08:48)
[2023-11-13] MEDS: Nicotine 21 MG PATCH.TD24 TRANSDERMA (08:48)
--- NOTE | 2023-11-13 09:16 | HO.PSYCHPN ---
Subjective Subjective Date of Service: 11/13/23 Reason For Visit: HI Subjective Notes: Conditional Voluntary Interim History: Reviewed with Dr. Mendez. Keeping to self. guarded. pt reports feeling okay today; pt stated, I'm not depressed or anxious. I'm going to go back to my apartment and following up with outpatient people . pt denies SI/HI/VH/AH. Medication Compliance: Yes Side effects from medications: No Attending Groups: No Review of Systems Constitutional: Reports as per HPI Eyes: Reports as per HPI Reports as per HPI Cardiovascular: Reports as per HPI Respiratory: Reports as per HPI Gastrointestinal: Reports as per HPI Genitourinary: Reports as per HPI Musculoskeletal: Reports as per HPI Skin/Breast: Reports as per HPI Reports as per HPI Psychiatric: Reports as per HPI Endocrine: Reports as per HPI Hematologic/Lymphatic: Reports as per HPI Allergic/Immunologic: Reports as per HPI Mental Status Exam Mental Status Exam Narrative: Pt is alert and oriented; behavior guarded, calm; dressed in casual attire; mood is described as good ; eye contact appropriate; Speech is normal rate, volume and prosody and not pressured; thought process is organized; Thought content is on discharge; denies SI/HI/VH/AH. Diagnostics Vital Signs (24Hr): Vital Signs - 24 hr 11/12/23 19:50 11/13/23 08:36 Temperature 96.9 F 96.9 F Pulse Rate 77 67 Respiratory Rate 18 Blood Pressure 120/64 109/64 Pulse Oximetry 96 98 Oxygen Delivery Method Room Air Room Air BMI result Body Mass Index 22.3 Labs 11/08/23 20:29 11/08/23 20:29 Medications Medications Current Medications Acetaminophen (Acetaminophen 325 Mg Tablet) 650 mg PO Q6H PRN PRN Reason: Headache/Pain Mild Scale (1-3) Last Admin: 11/12/23 15:40 Dose: 650 mg Al Hydroxide/Mg Hydroxide (Magnesium Hydrox/Alum Hydrox 30 Ml Oral.Susp) 30 ml PO Q6H PRN PRN Reason: Heartburn/Nausea Buprenorphine/Naloxone (Buprenorphine/Naloxone 8/2 Mg Film) 1 film SUBLINGUAL DAILY [facility] Last Admin: 11/13/23 08:48 Dose: 1 film Bupropion HCl (Bupropion Hcl Xl 150 Mg Tab.Er.24h) 450 mg PO DAILY [facility] Last Admin: 03/07/24 08:48 Dose: 450 mg Clonidine HCl (Clonidine Hcl 0.1 Mg Tablet) 0.1 mg PO TID PRN; Protocol PRN Reason: anxiety Last Admin: 11/09/23 22:32 Dose: 0.1 mg Fluoxetine HCl (Fluoxetine Hcl 20 Mg Capsule) 20 mg PO DAILY [facility] Last Admin: 11/13/23 08:48 Dose: 20 mg Hydroxyzine HCl (Hydroxyzine Hcl 25 Mg Tablet) 25 mg PO Q6H PRN PRN Reason: Anxiety Ibuprofen (Ibuprofen 600 Mg Tablet) 600 mg PO Q6H PRN PRN Reason: Pain, Moderate(Pain Scale 4-6) Last Admin: 11/12/23 21:12 Dose: 600 mg Magnesium Hydroxide (Milk Of Magnesia 30 Ml Oral.Susp) 30 ml PO DAILY PRN PRN Reason: Constipation Nicotine (Nicotine 21 Mg Patch.Td24) 21 mg TRANSDERMA DAILY [facility] Last Admin: 11/13/23 08:48 Dose: 21 mg Nicotine Polacrilex (Nicotine Polacrilex 2 Mg Gum) 4 mg BUCCAL Q2H PRN PRN Reason: Nicotine Cravings Prazosin HCl (Prazosin Hcl 1 Mg Capsule) 4 mg PO BEDTIME [facility]; Protocol Last Admin: 11/12/23 21:12 Dose: 4 mg Risperidone (Risperidone 1 Mg Tablet) 1 mg PO DAILY [facility] Last Admin: 11/13/23 08:48 Dose: 1 mg Risperidone (Risperidone 2 Mg Tablet) 2 mg PO BEDTIME [facility] Last Admin: 11/12/23 21:12 Dose: 2 mg Trazodone HCl (Trazodone Hcl 50 Mg Tablet) 50 mg PO BEDTIME MRX1 PRN PRN Reason: Insomnia Allergies Allergies Allergy/AdvReac Type Severity Reaction Status Date / Time No Known Allergies Allergy Verified 07/02/23 16:55 Assessment & Plan Assessment & Plan (1) Opioid use disorder: Status: Acute Code(s): F11.90 - Opioid use, unspecified, uncomplicated (2) PTSD (post-traumatic stress disorder): Status: Acute Code(s): F43.10 - Post-traumatic stress disorder, unspecified (3) Cocaine use disorder: Status: Acute Code(s): F14.10 - Cocaine abuse, uncomplicated Plan /5: restart home meds aside from stimulant (utox stimulant neg, h/o psychotic Sx and on anti-psychotic, utox cocaine POS). SL suboxone until discharge when pt can get sublocade shot. referral for CSS versus return to own apartment in short order. 11/11: stable, euthymic, no HI. can return to apartment this week. plan for friday discharge. 11/12: continue current tx plan. Patient educated on: diagnosis and medication risk/benefits Informed Consent: understands Reason for continued inpatient stay Substantial Risk for: med/psych decompensation Time Spent With Patient Time: Total time managing care of this patient today _20___ minutes.
[2023-11-13] MEDS: Ibuprofen 600 MG TABLET PO (17:18)
[2023-11-13 22:40] VITALS: BP 128/78; PULSE 72; RESP 18; TEMP 36.6; O2SAT 98
[2023-11-13] MEDS: Prazosin HCL 1 MG CAPSULE 4 MG PO (22:41)
[2023-11-13] MEDS: risperiDONE 2 MG TABLET PO (22:41)
[2023-11-14 06:00] VITALS: BP 121/76; PULSE 64; RESP 14; TEMP 36.6; O2SAT 95
[2023-11-14] MEDS: Nicotine 21 MG PATCH.TD24 TRANSDERMA (08:38)
[2023-11-14] MEDS: Buprenorphine/Naloxone 8/2 mg FILM 1 FILM SUBLINGUAL (08:39)
[2023-11-14] MEDS: buPROPion HCl XL 150 MG TAB.ER.24H 450 MG PO (08:39)
[2023-11-14] MEDS: risperiDONE 1 MG TABLET PO (08:40)
[2023-11-14] MEDS: FLUoxetine HCl 20 MG CAPSULE PO (08:40)
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
[2023-11-14] MEDS: Ibuprofen 600 MG TABLET PO (11:17)
== END 2023-11-14 11:39 | disposition home or self-care (01) | DRG 755 ==
LOC: HO.ED 11-09 07:42 → HO.PADLT16 11-10 13:25
PROVIDERS: Emergency Medicine; Admitting Provider Psychiatry & Neurology Psychiatry; Emergency Provider Internal Medicine; Visit Provider Psychiatry & Neurology Psychiatry
DX: F43.10 Post-traumatic stress disorder, unspecified (principal); R45.850 Homicidal ideations; F11.20 Opioid dependence, uncomplicated; F17.210 Nicotine dependence, cigarettes, uncomplicated; F14.10 Cocaine abuse, uncomplicated; Z71.6 Tobacco abuse counseling; Z20.822 Contact with and (suspected) exposure to COVID-19; Z91.51 Personal history of suicidal behavior; Z62.810 Personal history of physical and sexual abuse in childhood; Z79.899 Other long term (current) drug therapy
CPT/HCPCS: 36415; 80053; 80143; 80179; 80307; 81003; 85025; 87635; 93005; 99285; S9485

== ENCOUNTER → 2023-11-10 08:24 | Outpatient (BNV) | payer OTHER, SELFPAY | PROVIDERS: Admitting Provider Psychiatry & Neurology Psychiatry; Emergency Provider Internal Medicine; Visit Provider Internal Medicine Cardiovascular Disease | DX: R45.850 Homicidal ideations (principal) | CPT/HCPCS: 93010 ==

== ENCOUNTER → 2023-11-10 13:17 | Outpatient (BNV) | payer OTHER, SELFPAY | PROVIDERS: Admitting Provider Psychiatry & Neurology Psychiatry; Emergency Provider Internal Medicine; Visit Provider Psychiatry & Neurology Psychiatry | DX: F14.10 Cocaine abuse, uncomplicated (principal); F11.90 Opioid use, unspecified, uncomplicated; F43.11 Post-traumatic stress disorder, acute | CPT/HCPCS: 99231; 99233 ==

== ENCOUNTER 2023-12-06 00:51 | Emergency (ER) | payer OTHER, SELFPAY ==
[2023-12-06 01:09] VITALS: BP 140/93; BP 142/90; PULSE 105; PULSE 106; RESP 18; TEMP 36.5; O2SAT 97; BMI 21.8
--- NOTE | 2023-12-06 01:48 | ED_ITS ---
HPI - Psych General Chief Complaint: Psychiatric Symptoms Stated Complaint: si/substance abuse Time Seen by Provider: 12/06/23 01:15 Source: patient Mode of arrival: ambulatory Limitations: no limitations History of Present Illness HPI Narrative: Patient's history of substance abuse IV cocaine and heroin with history of bipolar PTSD and major depression comes here as increased paranoid feeling incongruent SI and HI presentation with no plan was admitted to psych floor last month and would like to go there again Related Data Home Medications Medication Instructions Recorded Confirmed bupropion HCl 300 mg 24 hr tablet, 450 mg PO DAILY 11/09/23 11/09/23 extended release fluoxetine 10 mg capsule 20 mg PO DAILY 11/09/23 11/09/23 risperidone 1 mg tablet 2 mg PO BEDTIME 11/09/23 11/09/23 risperidone 1 mg tablet (Risperdal) 1 mg PO DAILY 11/09/23 11/09/23 Previous Rx's Medication Instructions Recorded clonidine HCl 0.1 mg tablet 0.1 mg PO TID PRN anxiety 30 days 10/07/23 #90 tabs dextroamphetamine-amphetamine ER 30 mg PO DAILY 30 days #30 caps 10/07/23 30 mg 24hr capsule,extend release prazosin 2 mg capsule 4 mg (2 x 2 mg) PO BEDTIME 30 days 10/07/23 #60 caps buprenorphine 8 mg-naloxone 2 mg 1 film sublingual DAILY #0 ea 11/14/23 sublingual film (Suboxone) Allergies Allergy/AdvReac Type Severity Reaction Status Date / Time No Known Allergies Allergy Verified 07/02/23 16:55 Review of Systems 2 Review of Systems: Yes all other systems are reviewed and are negative PMFSH Past Medical History Medical History Paranoid type delusional disorder Opioid use disorder PTSD (post-traumatic stress disorder) MDD (major depressive disorder), recurrent severe, without psychosis Social History Social History Household Members: Friend(s) Household Members Other:: two room mates Housing: Other Housing Other:: rent a room Do you presently have visiting nurse or other home services: No Patient Tobacco Use Status: Current everyday Tobacco user Tobacco use type: Cigarette Cigarette Packs Per Day: 1 Cigarettes Per Day: 20.0 Years Smoked: 20 e-Cigarette/Vaping Use: Currently Using Second Hand Smoke Exposure: No Substance Use Type: Crack/Cocaine, Marijuana and Opiates Advance Directives: No Advance Directives Information Provided: No service: No Sexual orientation: Straight/Heterosexual Physical Exam 2 Vital Signs: Vital Signs: Last Vital Signs Temp 97.7 F 12/06/23 01:09 Pulse 105 H 12/06/23 01:09 Resp 18 12/06/23 01:09 BP 140/93 H 12/06/23 01:09 Pulse Ox 97 12/06/23 01:09 O2 Del Method Room Air 12/06/23 01:09 BMI result Body Mass Index 21.8 Appearance: Alert. Oriented X3. No acute distress. Eyes: PERRLA, No Nystagmus ENT: Pharynx normal. Oral Mucosa moist Neck: Normal inspection. Neck supple. CVS: Normal heart rate and rhythm. Pulses normal. Respiratory: No respiratory distress. Equal air entry bilateral, no wheezing/rales/rhonchi Abdomen: Soft and nontender. Bowel sounds are present, no mass palpable, no CVA tenderness Skin: Skin warm and dry. Normal skin color. Normal skin turgor. Extremities: No lower extremity edema. No calf tenderness psych: Feel depressed SI and HI with no plan Neuro: Oriented X 3. No motor deficit. No sensory deficit.No cerebellar signs , cranial nerves II-XII intact Medical Decision Making Medical Decision Making MDM Narrative: Patient with psychotic history with history of PTSD and depression with history of substance abuse will get care team involved for patient having SI and HI feeling Lab Data 12/06/23 01:46 12/06/23 01:46 Labs: Lab Results 12/06/23 Range/Units 01:46 WBC 9.1 (4.8-10.8) X10*3/uL RBC 4.55 L (4.60-5.80) X10*6/uL Hgb 13.4 L (14.0-18.0) g/dl Hct 39.5 L (42.0-52.0) % MCV 86.8 (80.0-98.0) fL MCH 29.5 (27.0-33.0) pg MCHC 33.9 (31.0-36.0) g/dl RDW 13.2 (11.0-16.0) % Plt Count 348 (160-400) X10*3/uL MPV 8.6 L (9.4-12.4) fL Immature Gran % (Auto) 0.3 (0.0-0.4) % Neut % (Auto) 73.6 H (45-73) % Lymph % (Auto) 17.0 L (20-40) % Hawkins % (Auto) 6.1 (2-11) % Eos % (Auto) 2.3 (0-4) % Baso % (Auto) 0.7 (0-2) % Lymph # (Auto) 1.5 (1.2-4.9) X10*3/uL Hawkins # (Auto) 0.6 (0.1-1.2) X10*3/uL Eos # (Auto) 0.2 (0.0-0.4) X10*3/uL Baso # (Auto) 0.1 (0.0-0.2) X10*3/uL Abs Immat Gran (auto) 0.03 (0.00-0.03) X10*3/uL Absolute Neuts (auto) 6.7 (2.0-8.3) x10*3/uL Absolute Nucleated RBC 0.000 (0.0-0.012) X10*3/uL Nucleated RBC % (auto) 0.0 (0.0-0.2) /100WBC Discharge Plan Discharge Clinical Impression: Homicidal behavior, Cocaine use disorder, PTSD (post-traumatic stress disorder), Paranoid type delusional disorder Patient Disposition: Home, Self-Care Prescriptions: No Action clonidine HCl 0.1 mg tablet 0.1 mg PO TID PRN (Reason: anxiety) 30 Days Qty: 90 0RF dextroamphetamine-amphetamine 30 mg capsule,extended release 24hr 30 mg PO DAILY 30 Days Qty: 30 0RF Rx Instructions: Partial Fill upon patient request. prazosin 2 mg capsule 4 mg PO BEDTIME 30 Days Qty: 60 0RF fluoxetine 10 mg capsule 20 mg PO DAILY bupropion HCl 300 mg tablet extended release 24 hr 450 mg PO DAILY risperidone 1 mg Tablet 2 mg PO BEDTIME risperidone [Risperdal] 1 mg Tablet 1 mg PO DAILY buprenorphine-naloxone [Suboxone] 8-2 mg Film 1 film sublingual DAILY Qty: 0 0RF Interventions: [place]-Suicide Risk Severity Scale Last Done: 12/06/23 01:16
--- NOTE | 2023-12-06 01:50 | MHC.EDTECH ---
pt paranoid about being near windows. pt sleeping on ground in his assigned room. RN AWARE.
[2023-12-06 01:51] LABS: MANUAL DIFF FLAG NO
[2023-12-06 01:52] LABS: Basophils Absolute Auto 0.1 X10*3/uL (0.0-0.2); Basophils Percent Auto 0.7 % (0-2); Eosinophils Absolute Auto 0.2 X10*3/uL (0.0-0.4); Eosinophils Percent Auto 2.3 % (0-4); Hematocrit 39.5 % (42.0-52.0); Hemoglobin 13.4 g/dl (14.0-18.0); Imm Gran Abs Auto 0.03 X10*3/uL (0.00-0.03); Imm Gran Pct Auto 0.3 % (0.0-0.4); Lymphocytes Absolute Auto 1.5 X10*3/uL (1.2-4.9); Mean Corpuscular HGB Conc 33.9 g/dl (31.0-36.0); Mean Corpuscular Hemoglobin 29.5 pg (27.0-33.0); Mean Corpuscular Volume 86.8 fL (80.0-98.0); Mean Platelet Volume 8.6 fL (9.4-12.4); Monocytes Absolute Auto 0.6 X10*3/uL (0.1-1.2); Monocytes Percent Auto 6.1 % (2-11); Neutrophils Absolute Auto 6.7 x10*3/uL (2.0-8.3); Neutrophils Percent Auto 73.6 % (45-73); Platelet Count 348 X10*3/uL (160-400); Red Blood Count 4.55 X10*6/uL (4.60-5.80); Red Cell Distribution Width 13.2 % (11.0-16.0); White Blood Count 9.1 X10*3/uL (4.8-10.8)
[2023-12-06 01:54] LABS: Appearance Urine Cloudy; Color Urine Dark Yellow; Glucose Urine UA Negative (Negative); Leukocyte Esterase Urine Trace (Negative); Nitrite Urine Negative (Negative); PH 5.5 (5.0-9.0); Specific Gravity - Urine 1.025 (1.005-1.025); UMIC TRIGGER UACC YES; Urine Blood Trace (Negative); Urine Ketones Trace mg/dL (Negative); Urine Protein 30 (1+) mg/dL (Neg-Trace)
[2023-12-06 02:02] LABS: Amphetamine Screen Urine Not Detected (Not Detect); Barbiturates, Urine Not Detected (Not Detect); Benzodiazepines Screen Urine Not Detected (Not Detect); Cannabinoid Screen Urine POSITIVE (Not Detect); Cocaine Screen Urine POSITIVE (Not Detect); Fentanyl, urine POSITIVE (Not Detect); Opiate Screen Urine POSITIVE (Not Detect); Phencyclidine Screen Urine Not Detected (Not Detect)
[2023-12-06 02:12] LABS: Bacteria Urine None Seen (None Seen); Hyaline Casts Urine >20 /LPF (0-2); Squamous Epithelial Cell Urine 0-2 /HPF (0-2); WBC Urine 0-5 /HPF (0-5)
[2023-12-06 02:12] LABS: Alanine Aminotransferase 65 U/L (0-40); Albumin Level 4.5 g/dL (3.5-5.0); Alkaline Phosphatase 88 U/L (39-117); Anion Gap 14 (12-20); Aspartate Amino Transferase 43 U/L (5-37); Bilirubin Total 0.3 mg/dL (0.0-1.0); Blood Urea Nitrogen 15 mg/dL (9-16); Calcium 10.3 mg/dL (8.4-10.2); Carbon Dioxide 28 mmol/L (22-29); Chloride 102 mmol/L (96-108); Creatinine Clr Calc Pharmacy 87.8; Estimated Glomerular Filt Rate > 60; Ethanol < 10 mg/dL; Glucose Random 143 mg/dL (60-115); Potassium 3.9 mmol/L (3.3-5.1); Sodium 140 mmol/L (135-145); Total Protein 8.1 g/dL (6.5-8.0)
--- NOTE | 2023-12-06 08:30 | PHA.MEDREC ---
Pharmacy Consult ? Medication Reconciliation Pharmacy has REVIEWED the medication reconciliation. matches discharge paperwork
[2023-12-06 08:40] VITALS: BP 113/63; PULSE 68; RESP 18; TEMP 37.2; O2SAT 95
[2023-12-06] MEDS: FLUoxetine HCl 20 MG CAPSULE PO (10:07)
[2023-12-06] MEDS: risperiDONE 1 MG TABLET PO (10:07)
[2023-12-06] MEDS: Dextroamphetamine/Amphetamine XR 10 MG CAP.ER.24H 30 MG PO (10:07)
[2023-12-06] MEDS: buPROPion HCl XL 150 MG TAB.ER.24H 450 MG PO (10:07)
--- NOTE | 2023-12-06 10:08 | MHC.RECOVRN ---
ballistician met with patient in [facility] at the request of CARE team. Patient has active IV opiate use disorder. Tox screen + for Fentanyl, Opioids, Cocaine, and Marijuana. Last use was just prior to arrival to ER (around 1am this morning). He will likely need dual diagnosis treatment, which CARE team is actively involved in managing. RN attempted to assess patient for addiction medicine consult, however patient was sleeping and declined to meet now. Reports maybe come back later, I just want to sleep now. Suboxone 8/2mg ordered, given ~5 minutes after RN briefly met with patient. Discussed with Chanelle Sosa APRN.
--- NOTE | 2023-12-06 16:19 | MHC.CARE ---
RAD Team conducted a Dual Dx bed search for this pt. No beds were available, assessment faxed to [facility] for review on Friday.
[2023-12-06 16:56] VITALS: BP 108/73; PULSE 67; RESP 18; TEMP 36.5; O2SAT 96
[2023-12-06] MEDS: Nicotine 14 MG PATCH.TD24 TRANSDERMA (17:05)
--- NOTE | 2023-12-06 19:43 | PC.NURSE ---
patient appears to remain at rest at present respirations are even and unlabored patient appears in no distress
[2023-12-06] MEDS: Prazosin HCL 1 MG CAPSULE 4 MG PO (22:25)
[2023-12-06] MEDS: risperiDONE 2 MG TABLET PO (22:25)
[2023-12-07 07:36] VITALS: BP 105/64; PULSE 69; RESP 14; TEMP 36.4; O2SAT 98
--- NOTE | 2023-12-07 07:55 | PC.NURSE ---
PT A/O X 4 NO SOB/DAYANARA NOTED SPEAKS IN FULL SENTENCES. PT DENIES ANY SI/HI. PT DENIES ANY PAIN/DISC. PT AMB (I) GAIT STEADY TO BATHROOM AND BACK TO BED. PT AWARE OF PLAN OF CARE. WILL CONTINUE TO MONITOR.
[2023-12-07] MEDS: Dextroamphetamine/Amphetamine XR 10 MG CAP.ER.24H 30 MG PO (08:09)
[2023-12-07] MEDS: buPROPion HCl XL 150 MG TAB.ER.24H 450 MG PO (08:09)
[2023-12-07] MEDS: risperiDONE 1 MG TABLET PO (08:09)
[2023-12-07] MEDS: FLUoxetine HCl 20 MG CAPSULE PO (08:09)
--- NOTE | 2023-12-07 09:40 | MHC.EDTECH ---
This pct assisted patient with supplies to take a shower, patient was giving [facility] alisa,pants,and socks, along with shampoo,and tooth paste.
--- NOTE | 2023-12-07 13:25 | PC.NURSE ---
CARE TEAM AT BEDSIDE, PT AWARE OF PLAN OF CARE,
[2023-12-07 16:38] VITALS: BP 108/66; PULSE 86; RESP 18; TEMP 36.8; O2SAT 97
--- NOTE | 2023-12-07 19:09 | PC.NURSE ---
patient appears to remain asleep at present respirations are even and unlabored patient appears in no distress.
[2023-12-07] MEDS: risperiDONE 2 MG TABLET PO (21:02)
[2023-12-07] MEDS: Prazosin HCL 1 MG CAPSULE 4 MG PO (21:02)
[2023-12-07 22:24] VITALS: BP 145/85; PULSE 65; RESP 20; TEMP 36.9; O2SAT 98
--- NOTE | 2023-12-08 07:05 | MHC.CARE ---
Pt was accepted [facility] for Dual Dx ETA- noon Address- January , [facility] Accepting Doctor- Dr Solano
--- NOTE | 2023-12-08 07:10 | MHC.CARE ---
T/w informed patient he has been accepted to [facility], explained [facility] method of transport (ambulance) and the ways the program can provide more substance abuse related treatment including but not limited to step down planning should he be interested in it, to [facility] (rehab loc), and referrals throughout the state depending on discharge location. He is in agreement and is encouraged to not hesitate to ask any other questions should they arise.
--- NOTE | 2023-12-08 07:18 | PC.NURSE ---
Assumed care of patient at 0645, patient appears to be sleeping, respirations even and unlabored, no apparent distress is noted. Patient will be going to [facility] today for dual dx. CARE team spoke with patient regarding disposition and he verbalizes no questions at this time
[2023-12-08] MEDS: risperiDONE 1 MG TABLET PO (08:01)
[2023-12-08] MEDS: Dextroamphetamine/Amphetamine XR 10 MG CAP.ER.24H 30 MG PO (08:02)
[2023-12-08] MEDS: FLUoxetine HCl 20 MG CAPSULE PO (08:02)
[2023-12-08] MEDS: buPROPion HCl XL 150 MG TAB.ER.24H 450 MG PO (08:02)
[2023-12-08 10:02] VITALS: BP 145/85; PULSE 65; RESP 20; TEMP 36.9; O2SAT 98
== END 2023-12-08 10:04 ==
PROVIDERS: Internal Medicine; Emergency Provider Emergency Medicine
DX: F22 Delusional disorders (principal); R45.850 Homicidal ideations; F43.10 Post-traumatic stress disorder, unspecified; F14.10 Cocaine abuse, uncomplicated; F33.9 Major depressive disorder, recurrent, unspecified; F11.10 Opioid abuse, uncomplicated
CPT/HCPCS: 36415; 80053; 80307; 81001; 85025; 99285; S9485